=== PATIENT | female | born 1955 | race Caucasian/White ===

== ENCOUNTER → 2016-04-18 | Outpatient (CLI) | payer OTHER ==
[~2016-04-18] MED LIST: ACET-1138 PO; ASPEC81 PO; CLB200 PO; LOSA1TAB PO; METO1TAB31 PO; ONDA8TAB6 PO; POTA-65 PO; SNK PO; ULT50X PO
== END | disposition home or self-care (01) ==
LOC: C.LABSPEC 17:22
PROVIDERS: ATTEND Nurse Practitioner Adult Health
DX: R35.0 Frequency of micturition (principal); R35.1 Nocturia

== ENCOUNTER → 2017-06-30 | Outpatient (CLI) | payer OTHER ==
[~2017-06-30] MED LIST changes: -ASPEC81 PO; +ASPI-320 PO; +METO-478 PO; -METO1TAB31 PO; -ONDA8TAB6 PO
== END | disposition home or self-care (01) ==
LOC: C.LAB 17:27
PROVIDERS: ATTEND Family Medicine
DX: N39.0 Urinary tract infection, site not specified (principal)

== ENCOUNTER → 2017-07-03 | Outpatient (CLI) | payer OTHER ==
--- NOTE | 2017-07-03 17:00 | DIAGNOSTIC IMAGING REPORT ---
ABD/PELVIS WITHOUT FOR STONE HISTORY: 61 years-old Female X acute left-sided flank pain with hematuria COMPARISON: CT abdomen and pelvis 10/23/2015 TECHNIQUE: Multiple axial CT images of the abdomen and pelvis were obtained without the use of contrast. A dose lowering technique was used consistent with the principals of ZAKI. FINDINGS: Calcified granuloma of the nasal right lower lobe. Lung bases are otherwise generally clear. There is no pneumatosis or pneumoperitoneum identified. Imaged inferior cardiac chambers are unremarkable with trace pericardial effusion. Hepatic steatosis. No intrahepatic biliary ductal dilation identified. Areas of mild fatty sparing are seen adjacent to the roge hepatis. Calcific granulomas are noted throughout the spleen. The pancreas, gallbladder and adrenal glands are within normal limits. Kidneys, and ureters are unremarkable without calculi or obstructive uropathy identified. Previously noted indeterminate 8 mm lesion of the left kidney, possibly reflecting a renal cyst is not well seen on this noncontrast study. The bladder is nondistended. Evaluation of the pelvic structures is limited secondary to streak artifact from left hip arthroplasty which appears to be in satisfactory alignment. Uterus and adnexa demonstrate no focal abnormality. Mild atherosclerosis of the aorta without aneurysm. No bulky adenopathy. Retroaortic left renal vein. No bowel obstruction or focal bowel wall thickening. Postoperative changes of the distal sigmoid colon. Moderate stool volume throughout the colon. A few noninflamed colonic diverticula are also noted. The visualized appendix appears normal. Soft tissues are unremarkable. The bones appear to be intact. Severe multilevel facet arthrosis of the lower lumbar spine. Mild levoscoliosis of the lumbar spine. Grade 1 anterolisthesis L4 on L5, likely secondary to long-standing severe facet arthrosis. Moderate posterior disc osteophyte complex at L1-L2 causes at least mild central canal narrowing. IMPRESSION: 1. No acute intra-abdominal or intrapelvic abnormality identified, specifically no renal calculi or obstructive uropathy. 2. Moderate stool volume throughout the colon suggest constipation. 3. Hepatic steatosis. 4. Prior granulomatous disease. 5. Trace pericardial effusion. 6. Additional findings as above. The above report was generated using voice recognition software. It may contain grammatical, syntax or spelling errors. Electronically signed by: Barrington Zhang M.D. 07/03/2017 4:59 PM Dictated Date/Time: 07/03/2017 4:52 PM
== END | disposition home or self-care (01) ==
LOC: C.CTS 16:19
PROVIDERS: ATTEND Family Medicine
DX: K76.0 Fatty (change of) liver, not elsewhere classified (principal)

== ENCOUNTER → 2017-07-18 | Outpatient (CLI) | payer OTHER ==
[2017-07-18 09:41] LABS: BASO % 0.5 %; BASO ABS # 0.04 K/uL (0-0.2); EOS % 2.3 %; EOS ABS # 0.19 K/uL (0-0.5); HEMATOCRIT 42.4 % (37-47); IG# 0.02 K/uL (0.00-0.02); LYMPH % 42.2 %; LYMPH ABS # 3.44 K/uL (1.2-3.4); MEAN CELL VOLUME 91.2 fL (80-100); MEAN CORPUSCULAR HEMOGLOBIN 30.1 pg (25-34); MEAN PLATELET VOLUME 10.5 fL (7.4-10.4); MONO ABS # 0.65 K/uL (0.11-0.59); NEUT % 46.8 %; NEUT ABS # 3.82 K/uL (1.4-6.5); PLATELET COUNT 333 K/uL (130-400); RED CELL DISTRIBUTION WIDTH CV 13.9 % (11.5-14.5); RED CELL DISTRIBUTION WIDTH SD 46.4 fL (36.4-46.3); WHITE BLOOD COUNT 8.16 K/uL (4.8-10.8)
[2017-07-18 10:03] LABS: CARCINOEMBRYONIC ANTIGEN 0.7 ng/ml (0-2.5)
[2017-07-18 10:09] LABS: HEMOGLOBIN A1C 5.7 % (4.5-5.6)
[2017-07-18 10:10] LABS: ALBUMIN 3.7 gm/dl (3.4-5.0); ALKALINE PHOSPHATASE 107 U/L (45-117); ALT/SGPT 34 U/L (12-78); AST/SGOT 23 U/L (15-37); BLOOD UREA NITROGEN 21 mg/dl (7-18); CALCIUM 9.1 mg/dl (8.5-10.1); CARBON DIOXIDE 25 mmol/L (21-32); CHOLESTEROL 197 mg/dl (0-200); CREATININE 0.85 mg/dl (0.60-1.20); GLUCOSE 92 mg/dl (70-99); POTASSIUM 4.3 mmol/L (3.5-5.1); SODIUM 139 mmol/L (136-145); URIC ACID 4.5 mg/dl (2.6-7.2)
[2017-07-18 10:21] LABS: LDL CHOLESTEROL CALCULATED 129 mg/dl; TOTAL PROTEIN 8.1 gm/dl (6.4-8.2); TRANSFERRIN 244 mg/dl (200-360)
== END | disposition home or self-care (01) ==
LOC: C.LAB 07:10
PROVIDERS: ATTEND Family Medicine
DX: N39.0 Urinary tract infection, site not specified (principal); R73.09 Other abnormal glucose; E55.9 Vitamin D deficiency, unspecified; D51.9 Vitamin B12 deficiency anemia, unspecified; E78.9 Disorder of lipoprotein metabolism, unspecified; R53.83 Other fatigue; C18.9 Malignant neoplasm of colon, unspecified

== ENCOUNTER → 2017-07-20 | Outpatient (CLI) | payer OTHER ==
[~2017-07-20] MED LIST changes: +OPTIRAY 320 IV PRN
--- NOTE | 2017-07-20 09:40 | DIAGNOSTIC IMAGING REPORT ---
ABDOMEN AND PELVIS CT WITH IV AND ORAL CONTRAST CT DOSE: 692.41 mGycm HISTORY: Acute left lower quadrant abdominal pain DIVERTICULITIS TECHNIQUE: Multiaxial CT images of the abdomen and pelvis were performed following the use of intravenous and oral contrast. A dose lowering technique was utilized adhering to the principles of ALARA. COMPARISON STUDY: CT abdomen and pelvis 07/03/2017 FINDINGS: 3 mm solid nodule of the lateral basal segment left lower lobe is noted on image 40 series 3. Mild dependent subsegmental bibasilar atelectasis. Linear calcification of the basal right lower lobe, 7 mm. No pneumatosis or pneumoperitoneum. Trace pericardial effusion. Imaged inferior cardiac chambers are unremarkable. Hepatic steatosis. No focal hepatic mass lesions or intrahepatic biliary ductal dilation. Spleen, pancreas, gallbladder and adrenal glands are within normal limits. Low attenuating lesions of the left kidney measuring up to 7 mm suggest renal cysts. There are suggested renal sinus cysts of the left as well. No renal calculi or obstructive uropathy. Urinary bladder is decompressed. Pelvic structures are not well-seen secondary to streak artifact from left hip arthroplasty. Uterus and adnexa are unremarkable. Mild atherosclerosis of the aorta without aneurysm. No bulky adenopathy. Retroaortic left renal vein. No bowel obstruction. Moderate stool volume of the colon suggest constipation. Postsurgical changes of the distal sigmoid colon and rectum. No significant colonic diverticular disease, colonic wall thickening or inflammatory changes. Normal appendix. Soft tissues are unremarkable. Bones appear intact. Multilevel facet arthrosis of the lower lumbar spine. IMPRESSION: 1. No acute intra-abdominal or intrapelvic abnormality identified. 2. No bowel obstruction or focal bowel wall thickening. 3. Suggested constipation. 4. Hepatic steatosis. 5. Additional findings as above. Electronically signed by: Barrington Zhang M.D. 07/20/2017 9:39 AM Dictated Date/Time: 07/20/2017 9:33 AM
== END | disposition home or self-care (01) ==
LOC: C.CTS 08:50
PROVIDERS: ATTEND Family Medicine
DX: R10.32 Left lower quadrant pain (principal); K57.92 Diverticulitis of intestine, part unspecified, without perforation or abscess without bleeding; K76.0 Fatty (change of) liver, not elsewhere classified

== ENCOUNTER 2022-05-24 14:56 | Inpatient (IN) ==
[2022-05-24] MEDS ORDERED: ACETAMINOPHEN 325 MG TAB PO PRN (15:04)
--- NOTE | 2022-05-24 15:11 | History & Physical Report ---
Date of Service May 24, 2022 Assessment & Plan (1) Fever: Plan: Fever of unknown origin Discussed with infectious disease. Will expand antibiotics from cefepime to include doxycycline twice daily p.o., prophylactic Vanco 125 twice daily given past history of C. difficile with recurrence, and vancomycin IV while pending additional work-up Lyme serology, blood cultures, urine cultures, CTchest/abdomen, Fungitell, bio fire, MRSA nares pending No clear source on physical examination Hemoglobin 6.4. Transfusing as below White blood cell 2.81, neutrophils 1.05 Platelet count 14 without active bleeding ESR 42 CRP baseline pending Admitting creatinine 0.91, baseline creatinine less than 1 Procalcitonin pending No transaminitis on admission UA day of admit with trace of blood, otherwise negative COVID pending -Prior CTchest: Groundglass residual densities of left lung, no lymphadenopathy, prior granulomatous disease, hepatic steatosis -Patient was pending a outpatient CTA/P which was not yet completed. Ordered with iv contrast, oral contrast deferred -Ultrasoundliver 04/15/2022: Gallbladder sludge without cholecystitis, no ductal dilation, hepatic steatosis, no focal mass or marginal nodularity appreciated MDS Hemoglobin less than 7 on admission, 2 units crossmatched, 1 unit pending transfusion. H&H after first unit, transfuse second unit if remaining less than 7.5 Requires irradiated blood products - Transfusion threshold for platelets less than 20,000 with bleeding. 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 difficile while with biotics We will treat prophylactically with vancomycin p.o. 125 twice daily Posttreatment myelodysplastic syndrome Noted 05/2021 Bone marrow biopsy with multilineage dysplasia Following with [facility] [place] for consideration of allogenic transplant from son versus immunity transplant. Transfusion threshold 7.0 Transfusion reaction 01/2022 platelet did have a platelet transfusion reaction with single leg hives and no airway involvement Pretreat transfusions with Benadryl, Tylenol, hydrocortisone DVT prophylaxis: Pharmacal prophylaxis contraindicated due to thrombocytopenia and anemia Disposition: Medical telemetry CODE STATUS: DNR/DNI Diet: Regular (2) Lymphoma: (3) MDS (myelodysplastic syndrome): (4) Pancytopenia: History of Present Illness Primary Care Provider: Marlene Barnett MD Mariana is a 66-year-old female with a past medical history of B-cell AL L, hypertension, atrial fibrillation, recurrent UTI Mariana is a 69-year-old female with a history of B-cell leukemia, A-fib, hypertension, pancytopenia who presents as a direct admit from the cancer care center for persistent fever with pancytopenia despite ciprofloxacin treatment, and anemia less than 7 in the setting of 1 year of myelodysplastic syndrome. Currently seen at the bedside with her present. She reports that since 5 days ago she has had continued night sweats and fevers of 101-102 F which mostly occur at night and which are intermittent and more rare throughout the day and which respond to Tylenol/ibuprofen. She has not had any cough or sputum production. No abdominal pain, has been a little constipated with firm bowel movements. [place], has not noted any tick bites or rashes. She did have bronchitis back in February and has been treated with azithromycin followed by cefpodoxime, and more recently ciprofloxacin which she has been taking twice daily for last 5 days and took this morning. Her fevers and chills have not improved with ciprofloxacin. She reports she has taken a fourth antibiotic between February and now, but does not recall the name of it. Cefdinir is noted on her chart, but notes this was switched to another similar medicine which she does not recall, was switched as pharmacy was on backorder for cefdinir. She has had some bloating and constipation, but again no abdominal pain or diarrhea. She has a history of B-cell lymphoma and 1 year of myelodysplastic syndrome with recurrent red blood cell transfusions. Last transfusion was 3 weeks ago. Gener ally fatigued, but no focal aches. Medical History: Reviewed Medications: Reviewed Surgical History: Reviewed Family history: Reviewed Allergies: Reviewed Social History: No tobacco/etoh/rec drug Code Status: DNR?DNI Allergies Allergy/AdvReac Type Severity Reaction Status Date / Time hydromorphone [From Dilaudid] Allergy Severe Hallucinati Verified 05/03/22 08:02 ng latex Allergy Severe SYSTEMIC Verified 05/03/22 08:02 ALLERGIC RESPONSE Penicillins Allergy Severe HIVES,DIFF. Verified 05/03/22 08:02 BREATHING codeine AdvReac Intermediate INDUCES Verified 05/03/22 08:02 MIGRAINE HEADACHES verapamil AdvReac Mild very sleepy Verified 05/03/22 08:02 morphine AdvReac Migraine Verified 05/03/22 08:02 Home Medications Medication Instructions Recorded Confirmed Type acetaminophen 500 mg tablet 1,000 mg PO DIRECTED PRN Pain 10/26/18 05/03/22 History (Tylenol Extra Strength) cholecalciferol (vitamin D3) 1,250 50,000 unit PO 2XWK 09/16/20 05/03/22 History mcg (50,000 unit) capsule Lactobacillus 1 cap PO DAILY 10/15/20 05/03/22 History acidophilus-Bifidobac.animalis 2 billion cell capsule folic acid 1 mg tablet 1 mg PO DAILY 06/23/21 05/03/22 History prednisone 20 mg tablet See Rx Instructions PO .COMPLEX 03/22/22 05/03/22 Rx #30 tabs benzonatate 100 mg capsule 100 mg PO TID PRN Cough 03/28/22 05/03/22 History Past Med/Surg History Medical History (Updated 05/24/22 @ 16:56 by Micah Hurst MD) A-fib remote hx of idiopathic pericarditis and transient a. fib (2016)- advised by cardiology 10/2016 to f/u PRN Anemia hgb stable in the 10-11 range Anxiety prior to procedures Bronchitis Delayed recovery from anesthesia GERD (gastroesophageal reflux disease) r/t chemo History of recent steroid use per RN phone interview, prednisone for first 5 days of 28 days chemo cycle/did not indicate last use History of thrombocytopenia fluctuating platelets since leukemia diagnosis/chemo treatments Hypertension Leukemia dx 10/2018 Migraine Osteoarthritis Peripheral neuropathy R/L hands, feet Port-A-Cath in place (04/25/19) Insertion of Mediport Left Subclavian Dr. Hinton 04/25/19 Sleep apnea "no official diagnosis" per RN phone interview/no further details- ?DEMOND Vitamin D deficiency Surgical History H/O section X2 History of bone marrow biopsy History of colon resection History of colonoscopy History of total hip arthroplasty LEFT S/P breast biopsy bilat S/P PICC central line placement DOUBLE LUMEN > OCT 2018> RIGHT ARM Family History Mother Cancer Breast cancer Brother Cancer Heart disease Social History Smoking Status: Never smoker Second Hand Exposure: No; Hx Alcohol Use: No Hx Substance Use: No Preferred Language: Ecuadorean Communication Ability: Effective Outside Property Agent Required: No Beliefs That Will Affect Care: None marital status: Current Living Situation: Spouse and Family Feels Safe at Home: Yes Assistive Devices: Walker and Wheelchair Review of Systems Review of Systems: All systems reviewed & are unremarkable except as noted in HPI & below Physical Exam Physical Exam: General: A&Ox3. NAD. Cooperative. HEENT: Atraumatic, normocephalic. Vision and hearing grossly intact. No scleral injection. Thorax: Left port in place, without tenderness or overlying erythema/discharge Pulm: CTAB A&P. -wheezes, -rales, -rhonchi. Symmetrical chest rise. No increased work of breathing. No respiratory distress. Cardiac: Mild intermittent tachycardia, regular., -mrg. Radial pulses intact and symmetrical. Abdominal: Nontender, nondistended, soft. BS present. Extremities: Warm, dry. No edema. No lesions. Sensation soft touch intact in hands and feet without deficit, distal extremity strength is intact and symmetrical PG Care Time/CCT Total # of Minutes Spent Total Time Spent with Patient: Total time spent is greater than 50% in coordination of care (as documented) at patient's floor/unit and/or counseling patient: Coding Level of Care Code 64824 INT INP/OBS CARE 3/75MIN Diagnoses Fever R50.9 Lymphoma C85.90 MDS (myelodysplastic syndrome) D46.9 Pancytopenia D61.818
[2022-05-24] MEDS ORDERED: SODIUM CHLORIDE 0.9% 250 ML IV PRN ×2 (15:14→23:57)
[2022-05-24] MEDS ORDERED: diphenhydrAMINE Capsule 25 MG CAP PO ONE (15:14)
[2022-05-24] MEDS ORDERED: ACETAMINOPHEN 325 MG TAB PO ONE (15:16)
[2022-05-24] MEDS ORDERED: Patient's HEIGHT &/or WEIGHT Needed SCH (15:30)
[2022-05-24] MEDS ORDERED: HYDROCORTISONE SOD 50 MG in SYRINGE 0 ML IV ONE (15:30)
[2022-05-24] MEDS ORDERED: VANCOMYCIN CONSULT ACTIVE PRN (16:42)
[2022-05-24] MEDS ORDERED: VANCOMYCIN HCL IV SCH (16:45)
[2022-05-24] MEDS ORDERED: SODIUM CHLORIDE 0.9% IV SCH (16:45)
[2022-05-24] MEDS ORDERED: VANCOMYCIN HCL 1,500 MG in SODIUM CHLORIDE 0.9% 500 ML IV ONE (17:15)
[2022-05-24 17:38] LABS: Lyme Ab IgG w/WB Rflx Negative (Negative); Lyme Ab IgM w/WB Rflx Negative (Negative)
--- NOTE | 2022-05-24 18:06 | XRay Report ---
SINGLE VIEW CHEST CLINICAL HISTORY: Fever FINDINGS: An AP, portable, upright chest radiograph is compared to study dated 03/23/2022 and correlate d with chest CT dated 05/02/2022. A left subclavian central venous infusion port is unchanged in posit ion. The heart is enlarged. The pulmonary vasculature is noncongested. Calcified mediastinal and righ t hilar lymph nodes are similar to previous. The lungs and pleural spaces are clear. No pneumothorax is seen. The skeletal structures are osteopenic. The bony thorax is grossly intact. IMPRESSION: Cardiomegaly with no active disease in the chest. ACT 112: Negative or not required by law. Electronically signed by: Irvin Martinez M.D. 05/24/2022 6:04 PM
[2022-05-24] MEDS: DOXYCYCLINE HYCLATE 100 MG CAP PO SCH (18:19)
--- NOTE | 2022-05-24 18:35 | Pharmacy Report ---
Pharmacy PK ABX Note - Date of Service May 24, 2022 - Assessment and Plan Assessment 66 year old F with h/o b-cell lymphoma and MDS [facility] with fever of unknown origin. Patient is currently on day 5 of ciprofloxacin. Per H&P, Infectious Disease recommended empiric cefepime, doxy, and vancomycin IV as well as vanco PO for CDI prophylaxis. Lyme serology, blood cultures, urine cultures, Fungitell, Resp biofire, MRSA nares pending. Plan Vancomycin * Loading dose: 1500 mg IV x 1 * Maintenance dose: mg IV every hours * Regimen is predicted to achieve target AUC/KATHARINE of 400-600 mg/L.hr * [Trough] [Random] level ordered for: []/[]/[] Pharmacy will continue to follow and will adjust dose/frequency as necessary. Thank you.
[2022-05-24 18:45] LABS: Adenovirus PCR Not Detected (NotDetected); Bordetella parapertussis PCR Not Detected (NotDetected); Bordetella pertussis PCR Not Detected (NotDetected); Chlamydia pneumoniae PCR Not Detected (NotDetected); Coronavirus 229E PCR Not Detected (NotDetected); Coronavirus CoV-2 (COVID19)PCR Not Detected (NotDetected); Coronavirus HKU1 PCR Not Detected (NotDetected); Coronavirus NL63 PCR Not Detected (NotDetected); Coronavirus OC43PCR Not Detected (NotDetected); Human Metapneumovirus PCR Not Detected (NotDetected); Influenza A PCR Not Detected (NotDetected); Influenza B PCR Not Detected (NotDetected); Mycoplasma pneumoniae PCR Not Detected (NotDetected); Parainfluenza Virus 1 PCR Not Detected (NotDetected); Parainfluenza Virus 2 PCR Not Detected (NotDetected); Parainfluenza Virus 3 PCR Not Detected (NotDetected); Parainfluenza Virus 4 PCR Not Detected (NotDetected); Respiratory Syncytial VirusPCR Not Detected (NotDetected); Rhinovirus/Enterovirus PCR Not Detected (NotDetected)
[2022-05-24 21:02] LABS: Hematocrit (blood only) 16.6 % (37.0-47.0); Hemoglobin 5.5 g/dl (12.0-16.0); Platelet Count 15 K/uL (130-400)
[2022-05-24] MEDS: RASPBERRY SYRUP 5 ML UDP PO SCH (21:24)
[2022-05-24] MEDS: VANCOMYCIN HCL 125 MG/2.5ML SOLN PO SCH (21:24)
[2022-05-24] MEDS: CEFEPIME 2,000 MG in SYRINGE 0 ML IV SCH (21:25)
[2022-05-24 22:33] LABS: Appearance Urine Clear (Clear); Bacteria Urine Automated Negative (Negative); Bilirubin Urine Negative (Negative); Blood Urine Trace (Negative); Cast Urine Automated 0 /lpf (0-5); Color Urine Yellow; Glucose Urine UA Negative (Negative); Ketones Urine Negative (Negative); Leukocyte Esterase Urine Negative (Negative); Nitrite Urine Negative (Negative); Protein Urine Negative (Negative); RBC Urine Automated 0-4 /hpf (0-4); Specific Gravity Urine 1.006 (1.000-1.030); Urobilinogen Urine Negative (Negative); WBC Urine Automated 0 /hpf (0-5)
[2022-05-24 23:51] LABS: Hematocrit (blood only) 20.5 % (37.0-47.0); Hemoglobin 6.9 g/dl (12.0-16.0)
[2022-05-25] MEDS ORDERED: ACETAMINOPHEN 325 MG TAB PO STA (00:10)
[2022-05-25] MEDS ORDERED: diphenhydrAMINE Capsule 25 MG CAP PO ONE (00:10)
[2022-05-25] MEDS ORDERED: HYDROCORTISONE SOD 50 MG in SYRINGE 0 ML IV ONE (00:25)
[2022-05-25] MEDS ORDERED: SODIUM CHLORIDE 0.9% 250 ML IV PRN (01:32)
[2022-05-25] MEDS ORDERED: VANCOMYCIN HCL 1,250 MG in SODIUM CHLORIDE 0.9% 250 ML IV SCH (04:00)
[2022-05-25] MEDS: DOXYCYCLINE HYCLATE 100 MG CAP PO SCH ×2 (05:39→16:58)
[2022-05-25] MEDS: CEFEPIME 2,000 MG in SYRINGE 0 ML IV SCH ×3 (05:39→21:06)
[2022-05-25 07:22] LABS: Hematocrit (blood only) 23.6 % (37.0-47.0); Hemoglobin 8.3 g/dl (12.0-16.0); Mean Corpuscular Hemoglobin 30.4 pg (25.0-34.0); Mean Corpuscular Hgb Conc 35.2 g/dL (32.0-36.0); Mean Corpuscular Volume 86.4 fL (80.0-100.0); Platelet Count 14 K/uL (130-400); RDW Coefficient of Variation 13.6 % (11.5-14.5); RDW Standard Deviation 42.4 fL (36.4-46.3); Red Blood Count 2.73 M/uL (4.20-5.40)
[2022-05-25 07:31] LABS: Albumin Globulin Ratio 1.2 (0.9-2); Albumin Level 3.6 gm/dl (3.4-5.0); BUN Creatinine Ratio 23.5 (10-20); Bilirubin,Total 1.1 mg/dl (0.2-1.0); Creatinine Clr Calc Pharmacy 61.1 ml/min; Est GFR (African American) 82.2 ml/min; Est GFR (Non-African American) 70.9 ml/min; Globulin 2.9 gm/dl (2.5-4.0); Total Protein 6.5 gm/dl (6.0-8.3)
[2022-05-25 07:56] LABS: Basophils # (auto) 0.07 K/uL (0-0.2); Basophils % (auto) 1.6 %; Eosinophils # (auto) 0.01 K/uL (0-0.50); Eosinophils % (auto) 0.2 %; Immature Granulocytes # (auto) 0.15 K/uL (0.01-0.20); Immature Granulocytes % (auto) 3.4 %; Lymphocytes # (auto) 0.92 K/uL (1.2-3.4); Lymphocytes % (auto) 20.9 %; Monocytes # (auto) 0.34 K/uL (0.11-0.59); Monocytes % (auto) 7.7 %; Neutrophils # (auto) 2.91 K/uL (1.40-6.50); Neutrophils % (auto) 66.2 %
--- NOTE | 2022-05-25 08:48 | Infectious Disease Consult ---
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 Infectious Diseases consulted in setting of immunodeficiency and fevers. She has a h/o pre B ALL who had induction therapy completed in 01/2019 not completing last 3 cycles because of quality of life issues, continued on POMP maintenance through 09/2019. She is currently being considered for allogenic transplant vs immunity transplant. She has h/o recurrent uppers respiratory symptoms starting 02/2022 treated with Azithromycin then cefpodoxime. 03/25/[address] showed small nodular irregular airspace opacities with GGO halo favoring multifocal PNA. 04/23/22 she was prescribed Cefidinir but couldnt be filled and she received levofloxacin for 7 days. 05/[address] no evidence of sinusitis. Repeat CT chest showed resolved aeration of lungs with only minimal residual GGO of L lung. She was admitted to [facility] on 05/24 with 5 days of fevers to 101-102F occurring at night. She reports that since 5 days ago she has had continued night sweats and fevers responding to Tylenol/ibuprofen. She has not had any cough or sputum production. No abdominal pain, has been a little constipated with firm bowel movements. [place], has not noted any tick bites or rashes. Admission Vitals stable. Initial WBC 2.81 (neutrophils 1.05) Hgb 6.4 platelets 14, chemistry normal. UA clear except for trace blood. RVP negative. MRSA nares are negative. CXR showed cardiomegaly, lungs negative for active disease. 3/ Blood cultures are in lab. Review of prior cultures 3/2 Ucx grew lactobacillus (10,000 cfu/mL) 3/2 Blood cultures NG Patient placed on Cefepime, Vancomycin, Doxycycline and Vanco po ppx. Line: L subclavian port Hardware: L ALEXIS Discussion: Patient with 2 weeks of fevers without clear source, in setting of pancytopenia. She is not neutropenic today. CXR negative and UA is clear. She has a L chest port. Blood cultures are in lab. Source not clear at this time but do not suspect Urinary source. She did have respiratory infections and 2DE, CT C/A/P would help furhter evaluate source. Lyme testing is negative but Lyme is a concern of [facility]. I would plan to c/w doxy and cefepime for now. GIven mrsa nares negative it is safe to d/c vancomycin at this time. (2) Lymphoma: (3) Acute URI of multiple sites: Plan -Await CT C/A/P -2DE given fevers -C/W Cefepime and doxycycline -Recommend holding on any antipyretics unless she has temp off 100.3 or greater -f/u on Blood cultures -C/w Vanco 125 po bid ppx for Cdiff Thank you, ID will follow Karyna Ramirez MD Infectious Diseases [facility] Consultation Information Consultation was provided via telemedicine using two-way real-time interactive telecommunication between the patient and the telemedicine provider. For the duration of the visit, the provider was performing the assessment from a different facility than the patient. This includesuse of bluetooth stethoscope forauscultationperformed by the telepresenter that the telemedicine provider can hear if described in the physical exam. Circulation Crew Leader contact information: Please call [facility] [phone]. 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 Infectious Diseases consulted in setting of immunodeficiency and fevers. She has a h/o pre B ALL who had induction therapy completed in 01/2019 not completing last 3 cycles because of quality of life issues, continued on POMP maintenance through 09/2019. She is currently being considered for allogenic transplant vs immunity transplant. She has h/o recurrent uppers respiratory symptoms starting 02/2022 treated with Azithromycin then cefpodoxime. 03/25/[address] showed small nodular irregular airspace opacities with GGO halo favoring multifocal PNA. 04/23/22 she was prescribed Cefidinir but couldnt be filled and she received levofloxacin for 7 days. 05/[address] no evidence of sinusitis. Repeat CT chest showed resolved aeration of lungs with only minimal residual GGO of L lung. She was admitted to [facility] on 05/24 with 5 days of fevers to 101-102F occurring at night. She reports that since 5 days ago she has had continued night sweats and fevers responding to Tylenol/ibuprofen. She has not had any cough or sputum production. No abdominal pain, has been a little constipated with firm bowel movements. She [place] area with pets, has not noted any tick bites or rashes. Admission Vitals stable. Initial WBC 2.81 (neutrophils 1.05) Hgb 6.4 platelets 14, chemistry normal. UA clear except for trace blood. RVP negative. MRSA nares are negative. CXR showed cardiomegaly, lungs negative for active disease. 05/24 Blood cultures are in lab. Review of prior cultures / Ucx grew lactobacillus (10,000 cfu/mL) 3/ Blood cultures NG Patient placed on Cefepime, Vancomycin, Doxycycline and Vanco po ppx. Line: L subclavian port Hardware: L ALEXIS Today, patient is feeling better. She states she's had fevers for 2 weeks approximately. No respiratory symptoms, no cardiac symptoms, Some discomfort after eating. No skin issues. She has 2 dogs at home and is concerned for tick related disease but no ticks noted on herself or animals. No recent travel. She has lived in [facility]. 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 Allergies Allergy/AdvReac Type Severity Reaction Status Date / Time hydromorphone [From Dilaudid] Allergy Severe Hallucinati Verified 05/03/22 08:02 ng latex Allergy Severe SYSTEMIC Verified 05/03/22 08:02 ALLERGIC RESPONSE Penicillins Allergy Severe HIVES,DIFF. Verified 05/03/22 08:02 BREATHING codeine AdvReac Intermediate INDUCES Verified 05/03/22 08:02 MIGRAINE HEADACHES verapamil AdvReac Mild very sleepy Verified 05/03/22 08:02 morphine AdvReac Migraine Verified 05/03/22 08:02 Home Medications Medication Instructions Recorded Confirmed Type acetaminophen 500 mg tablet 1,000 mg PO DIRECTED PRN Pain 10/26/18 05/03/22 History (Tylenol Extra Strength) cholecalciferol (vitamin D3) 1,250 50,000 unit PO 2XWK 09/16/20 05/03/22 History mcg (50,000 unit) capsule Lactobacillus 1 cap PO DAILY 10/15/20 05/03/22 History acidophilus-Bifidobac.animalis 2 billion cell capsule folic acid 1 mg tablet 1 mg PO DAILY 06/23/21 05/03/22 History prednisone 20 mg tablet See Rx Instructions PO .COMPLEX 03/22/22 05/03/22 Rx #30 tabs benzonatate 100 mg capsule 100 mg PO TID PRN Cough 03/28/22 05/03/22 History Patient History Medical History A-fib remote hx of idiopathic pericarditis and transient a. fib (2015)- advised by cardiology 10/2016 to f/u PRN Anemia hgb stable in the 10-11 range Anxiety prior to procedures Bronchitis Delayed recovery from anesthesia GERD (gastroesophageal reflux disease) r/t chemo History of recent steroid use per RN phone interview, prednisone for first 5 days of 28 days chemo cycle/did not indicate last use History of thrombocytopenia fluctuating platelets since leukemia diagnosis/chemo treatments Hypertension Leukemia dx 10/2018 Migraine Osteoarthritis Peripheral neuropathy R/L hands, feet Port-A-Cath in place (04/25/19) Insertion of Mediport Left Subclavian Dr. Hinton 04/25/19 Sleep apnea "no official diagnosis" per RN phone interview/no further details- ?DEMOND Vitamin D deficiency Surgical History H/O section X2 History of bone marrow biopsy History of colon resection History of colonoscopy History of total hip arthroplasty LEFT S/P breast biopsy bilat S/P PICC central line placement DOUBLE LUMEN > OCT 2018> RIGHT ARM Family History Mother Cancer Breast cancer Brother Cancer Heart disease Social History Smoking Status: Never smoker Second Hand Exposure: No; Hx Alcohol Use: No Hx Substance Use: No Preferred Language: German Communication Ability: Effective Product Demonstrator Required: No Beliefs That Will Affect Care: None marital status: Current Living Situation: Spouse and Family Feels Safe at Home: Yes Assistive Devices: Walker and Wheelchair Review of System as per HPI Physical Exam Physical Exam: NAD OP clear no thrush No skin lesions No c/c/e No abdominal TTP, HSM negative murphys sign Results & Data ([facility]) Vital Signs (Past 12 Hours) Vital Signs Temp Pulse Pulse Resp BP BP Pulse Ox 05/25/22 07:56 36.6 C 77 18 115/58 L 96 05/25/22 07:13 68 05/25/22 06:01 36.6 C 77 18 122/72 96 05/25/22 05:35 36.5 C 73 18 122/71 98 05/25/22 04:35 36.6 C 75 18 110/59 L 96 05/25/22 03:35 36.6 C 86 18 138/67 97 05/25/22 03:05 36.6 C 72 18 123/67 96 05/25/22 02:50 36.5 C 74 18 122/66 98 05/25/22 02:28 36.7 C 77 18 130/72 99 05/25/22 01:02 106 H 05/24/22 23:15 36.8 C 80 18 102/49 L 95 05/24/22 22:15 36.9 C 90 18 127/67 96 05/24/22 20:58 36.8 C 92 H 18 113/52 L 95 O2 Del Method 05/25/22 07:56 Room Air 05/25/22 07:13 05/25/22 06:01 05/25/22 05:35 05/25/22 04:35 05/25/22 03:35 05/25/22 03:05 05/25/22 02:50 05/25/22 02:28 05/25/22 01:02 05/24/22 23:15 Room Air 05/24/22 22:15 05/24/22 20:58 Laboratory Results Laboratory Results - last 48 hr 05/24/22 05/24/22 05/24/22 13:17 13:17 16:32 WBC RBC Hgb 5.5 L* Hct 16.6 L* MCV MCH MCHC RDW Std Deviation RDW Coeff of Garcia Plt Count 15 L* Immature Gran % (Auto) Neut % (Auto) Lymph % (Auto) [place] % (Auto) Eos % (Auto) Baso % (Auto) Neut # (Auto) Lymph # (Auto) [place] # (Auto) Eos # (Auto) Baso # (Auto) Immature Gran # (Auto) Sodium Potassium Chloride Carbon Dioxide Anion Gap BUN Creatinine Est Cr Clr Drug Dosing Est GFR ( Amer) Est GFR (Non-Af Amer) BUN/Creatinine Ratio Glucose Calcium Total Bilirubin AST ALT Alkaline Phosphatase C-Reactive Protein 5.22 H Total Protein Albumin Globulin Albumin/Globulin Ratio Urine Color Urine Appearance Urine pH Ur Specific [place] Urine Protein Urine Glucose (UA) Urine Ketones Urine Blood Urine Nitrite Urine Bilirubin Urine Urobilinogen Ur Leukocyte Esterase Urine WBC (Auto) Urine RBC (Auto) U Hyaline Cast (Auto) U Epithel Cells (Auto) Urine Bacteria (Auto) Nasal Screen MRSA (PCR) Adenovirus (PCR) Anaplasma Smear See Comment B. pertussis DNA (PCR) B.parapertussis DNA PCR Lyme Disease IgG Ab Lyme Disease IgM Ab C. pneumoniae DNA (PCR) Coronavirus OC43 (PCR) Coronavirus HKU1 (PCR) Coronavirus 229E (PCR) SARS-CoV-2 (PCR) Coronavirus NL63 (PCR) Human Metapneumovir PCR Influenza Type A (PCR) Influenza Type B (PCR) M. pneumoniae (PCR) Parainfluenza 1 (PCR) Parainfluenza 2 (PCR) Parainfluenza 3 (PCR) Parainfluenza 4 (PCR) RSV (PCR) Entero/Rhino (PCR) Blood Type O Positive Antibody Screen NEGATIVE Crossmatch See Detail 05/24/22 05/24/22 05/24/22 16:32 22:00 23:18 WBC RBC Hgb 6.9 L* Hct 20.5 L* MCV MCH MCHC RDW Std Deviation RDW Coeff of Garcia Plt Count Immature Gran % (Auto) Neut % (Auto) Lymph % (Auto) [place] % (Auto) Eos % (Auto) Baso % (Auto) Neut # (Auto) Lymph # (Auto) [place] # (Auto) Eos # (Auto) Baso # (Auto) Immature Gran # (Auto) Sodium Potassium Chloride Carbon Dioxide Anion Gap BUN Creatinine Est Cr Clr Drug Dosing Est GFR ( Amer) Est GFR (Non-Af Amer) BUN/Creatinine Ratio Glucose Calcium Total Bilirubin AST ALT Alkaline Phosphatase C-Reactive Protein Total Protein Albumin Globulin Albumin/Globulin Ratio Urine Color Yellow Urine Appearance Clear Urine pH 6.0 Ur Specific [place] 1.006 Urine Protein Negative Urine Glucose (UA) Negative Urine Ketones Negative Urine Blood Trace H Urine Nitrite Negative Urine Bilirubin Negative Urine Urobilinogen Negative Ur Leukocyte Esterase Negative Urine WBC (Auto) 0 Urine RBC (Auto) 0-4 U Hyaline Cast (Auto) 0 U Epithel Cells (Auto) 5-10 H Urine Bacteria (Auto) Negative Nasal Screen MRSA (PCR) Adenovirus (PCR) Anaplasma Smear B. pertussis DNA (PCR) B.parapertussis DNA PCR Lyme Disease IgG Ab Negative Lyme Disease IgM Ab Negative C. pneumoniae DNA (PCR) Coronavirus OC43 (PCR) Coronavirus HKU1 (PCR) Coronavirus 229E (PCR) SARS-CoV-2 (PCR) Coronavirus NL63 (PCR) Human Metapneumovir PCR Influenza Type A (PCR) Influenza Type B (PCR) M. pneumoniae (PCR) Parainfluenza 1 (PCR) Parainfluenza 2 (PCR) Parainfluenza 3 (PCR) Parainfluenza 4 (PCR) RSV (PCR) Entero/Rhino (PCR) Blood Type Antibody Screen Crossmatch 05/24/22 05/24/22 05/25/22 Unknown Unknown 06:51 WBC 4.40 L RBC 2.73 L Hgb 8.3 L Hct 23.6 L MCV 86.4 MCH 30.4 MCHC 35.2 RDW Std Deviation 42.4 RDW Coeff of Garcia 13.6 Plt Count 14 L* Immature Gran % (Auto) 3.4 Neut % (Auto) 66.2 Lymph % (Auto) 20.9 [place] % (Auto) 7.7 Eos % (Auto) 0.2 Baso % (Auto) 1.6 Neut # (Auto) 2.91 Lymph # (Auto) 0.92 L [place] # (Auto) 0.34 Eos # (Auto) 0.01 Baso # (Auto) 0.07 Immature Gran # (Auto) 0.15 Sodium Potassium Chloride Carbon Dioxide Anion Gap BUN Creatinine Est Cr Clr Drug Dosing Est GFR ( Amer) Est GFR (Non-Af Amer) BUN/Creatinine Ratio Glucose Calcium Total Bilirubin AST ALT Alkaline Phosphatase C-Reactive Protein Total Protein Albumin Globulin Albumin/Globulin Ratio Urine Color Urine Appearance Urine pH Ur Specific [place] Urine Protein Urine Glucose (UA) Urine Ketones Urine Blood Urine Nitrite Urine Bilirubin Urine Urobilinogen Ur Leukocyte Esterase Urine WBC (Auto) Urine RBC (Auto) U Hyaline Cast (Auto) U Epithel Cells (Auto) Urine Bacteria (Auto) Nasal Screen MRSA (PCR) Negative Adenovirus (PCR) Not Detected Anaplasma Smear B. pertussis DNA (PCR) Not Detected B.parapertussis DNA PCR Not Detected Lyme Disease IgG Ab Lyme Disease IgM Ab C. pneumoniae DNA (PCR) Not Detected Coronavirus OC43 (PCR) Not Detected Coronavirus HKU1 (PCR) Not Detected Coronavirus 229E (PCR) Not Detected SARS-CoV-2 (PCR) Not Detected Coronavirus NL63 (PCR) Not Detected Human Metapneumovir PCR Not Detected Influenza Type A (PCR) Not Detected Influenza Type B (PCR) Not Detected M. pneumoniae (PCR) Not Detected Parainfluenza 1 (PCR) Not Detected Parainfluenza 2 (PCR) Not Detected Parainfluenza 3 (PCR) Not Detected Parainfluenza 4 (PCR) Not Detected RSV (PCR) Not Detected Entero/Rhino (PCR) Not Detected Blood Type Antibody Screen Crossmatch 05/25/22 06:51 WBC RBC Hgb Hct MCV MCH MCHC RDW Std Deviation RDW Coeff of Garcia Plt Count Immature Gran % (Auto) Neut % (Auto) Lymph % (Auto) [place] % (Auto) Eos % (Auto) Baso % (Auto) Neut # (Auto) Lymph # (Auto) [place] # (Auto) Eos # (Auto) Baso # (Auto) Immature Gran # (Auto) Sodium 139 Potassium 4.0 Chloride 109 H Carbon Dioxide 26 Anion Gap 4 BUN 20 Creatinine 0.85 Est Cr Clr Drug Dosing 61.1 Est GFR ( Amer) 82.2 Est GFR (Non-Af Amer) 70.9 BUN/Creatinine Ratio 23.5 H Glucose 118 H Calcium 9.0 Total Bilirubin 1.1 H D AST 13 ALT 16 Alkaline Phosphatase 54 C-Reactive Protein Total Protein 6.5 Albumin 3.6 Globulin 2.9 Albumin/Globulin Ratio 1.2 Urine Color Urine Appearance Urine pH Ur Specific [place] Urine Protein Urine Glucose (UA) Urine Ketones Urine Blood Urine Nitrite Urine Bilirubin Urine Urobilinogen Ur Leukocyte Esterase Urine WBC (Auto) Urine RBC (Auto) U Hyaline Cast (Auto) U Epithel Cells (Auto) Urine Bacteria (Auto) Nasal Screen MRSA (PCR) Adenovirus (PCR) Anaplasma Smear B. pertussis DNA (PCR) B.parapertussis DNA PCR Lyme Disease IgG Ab Lyme Disease IgM Ab C. pneumoniae DNA (PCR) Coronavirus OC43 (PCR) Coronavirus HKU1 (PCR) Coronavirus 229E (PCR) SARS-CoV-2 (PCR) Coronavirus NL63 (PCR) Human Metapneumovir PCR Influenza Type A (PCR) Influenza Type B (PCR) M. pneumoniae (PCR) Parainfluenza 1 (PCR) Parainfluenza 2 (PCR) Parainfluenza 3 (PCR) Parainfluenza 4 (PCR) RSV (PCR) Entero/Rhino (PCR) Blood Type Antibody Screen Crossmatch Diagnostic Findings Chest X-Ray 05/24/22 14:59 SINGLE VIEW CHEST CLINICAL HISTORY: Fever FINDINGS: An AP, portable, upright chest radiograph is compared to study dated 03/23/2022 and correlated with chest CT dated 05/02/2022. A left subclavian central venous infusion port is unchanged in position. The heart is enlarged. The pulmonary vasculature is noncongested. Calcified mediastinal and right hilar lymph nodes are similar to previous. The lungs and pleural spaces are clear. No pneumothorax is seen. The skeletal structures are osteopenic. The bony thorax is grossly intact. IMPRESSION: Cardiomegaly with no active disease in the chest. ACT 112: Negative or not required by law. Electronically signed by: Irvin Martinez M.D. 05/24/2022 6:04 PM Medications Administered Current Inpatient Medications Acetaminophen (Acetaminophen 325 Mg Tab) 650 mg PO Q4H PRN PRN Reason: Pain or Fever Stop: 06/23/22 15:03 Doxycycline Hyclate (Doxycycline Hyclate 100 Mg Cap) 100 mg PO Q12H EDWIN Stop: 05/26/22 17:59 Last Admin: 05/25/22 05:39 Dose: 100 mg Cefepime HCl 2,000 mg/ Syringe 20 mls @ 5 mls/min IV Q8H EDWIN; Protocol Stop: 05/26/22 17:59 Last Admin: 05/25/22 05:39 Dose: 5 mls/min Sodium Chloride (Nss) 250 mls @ 15 mls/hr IV .[id number] PRN PRN Reason: For Transfusion Duration Stop: 05/25/22 11:32 Raspberry (Raspberry Syrup 5 Ml Udp) 5 ml PO BID [facility] Stop: 06/23/22 20:59 Last Admin: 05/25/22 09:31 Dose: 5 ml Vancomycin HCl (Vancomycin Hcl 125 Mg/2.5ml Soln) 125 mg PO BID [facility] Stop: 06/23/22 20:59 Last Admin: 05/25/22 09:30 Dose: 125 mg
--- NOTE | 2022-05-25 08:53 | Hospitalist Progress Note ---
Date of Service May 25, 2022 Assessment & Plan (1) Fever: Plan: Fever of unknown origin Discussed with infectious disease. --> Expanded antibiotics from cefepime to include: * Doxy IV BID * Vancomycin IV * Vanco PO for hx cdiff w/ recurrence Lyme negative, Anaplasmosis smear negative -- PCR pending Hgb 6.4 -- s/p 2u PRBC w/ hgb stable 8.3 Blood cultures pending Temp -- 37.6C evening 05/24, nothing further Tylenol available prn -- had been using tylenol/NSAIDs at home UA w/o evidence for infection Biofire NEGATIVE Added procal to AM labs Prior imaging: * CT chest w/ GGO L lung, hepatic steatosis. * Liver US w/ GB sludge --> of note, patient w/ RUQ/liver "fullness" worse w/ spicy/fatty foods. 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 Transfusion threshold 7.0 Transfusion reaction 01/2022 platelet did have a platelet transfusion reaction with single leg hives and no airway involvement Pretreat transfusions with Benadryl, Tylenol, hydrocortisone DVT prophylaxis: Pharmacal prophylaxis contraindicated due to thrombocytopenia and anemia (2) Lymphoma: (3) MDS (myelodysplastic syndrome): (4) Pancytopenia: Plan continued inpatient stay monitor cultures check stool cultures/cdiff ctap, ct chest pending -- RN to call to get patient down jarred ID consult pending heme/onc consulted Admission and Anticipated Discharge Date Admission Date: May 24, 2022 Supervising Physician Co-Signing Physician Notes The patient was not seen by me. The chart was reviewed. Case discussed with SHANTEL Alaniz. Agree with assessment and plan Subjective patient evaluated this afternoon, at bedside not yet taken down for imaging as ordered on admission, likely from 2u PRBC transfused overnight. Had reported some increased SOB at baseline/BRISENO walking up her stairs/taking breaks after showering. Not up/moving around currently but states she feels improved. Low temps 37.7/37.6 but reported temp 102F at home. blood cultures pending ID consultation placed. She notes she has had issues w/ her liver since starting chemo/fullness. Denies radiation to her R shoulderblade but does state sometimes depending on what she eats. Issues w/ fatty/spicy foods at times. Known sludge to GB. Also noted recent URIs/bronchitis and recovering since end of February. On fourth cycle abx and reported she was doing better until recently when she's had persistent fevers/night sweats at home. Improvement in appetite since admission.overall sense of improvement. Remains on ABx/PO vanco for hx cdiff. Stated formed bowel movements but having 4-5 already today. To monitor/alert if any worsening and will test for such/consider dificid. She does not believe she has ever been on this and "vanco worked before". No bleeding reported and she notes she is very careful with such. Discussed ever seeing a candy maker and they state they have been trying but have had issues. Will await CT chest and consult if needed for any abnormal findings. Questions/concerns addressed at this time. Physical Exam Physical Exam: General: WD/WN female , general pallor, sitting up in bed, at bedside, NAD HEENT: Atraumatic, normocephalic, mmm, trachea midline, no deviation Chest: port to LEFT chest, covered. dressing c/d/i, no evidence for infection Resp: CTAB, no w/c, on room air CV: RRR, no significant m/r/g, no pitting edema, pulses palpable, calves nontender GI: +BS, soft/NT w/ exception fullness reported to RUQ on deep palpation/R flank : voiding spontaneously MSK/Neuro: no focal deficit Psych: AOx3, pleasant and cooperative Results & Data Results & Data ([facility]) Vital Signs (Past 12 Hours) Vital Signs Temp Pulse Pulse Resp BP BP Pulse Ox 05/25/22 07:56 36.6 C 77 18 115/58 L 96 05/25/22 07:13 68 05/25/22 06:01 36.6 C 77 18 122/72 96 05/25/22 05:35 36.5 C 73 18 122/71 98 05/25/22 04:35 36.6 C 75 18 110/59 L 96 05/25/22 03:35 36.6 C 86 18 138/67 97 05/25/22 03:05 36.6 C 72 18 123/67 96 05/25/22 02:50 36.5 C 74 18 122/66 98 05/25/22 02:28 36.7 C 77 18 130/72 99 05/25/22 01:02 106 H 05/24/22 23:15 36.8 C 80 18 102/49 L 95 05/24/22 22:15 36.9 C 90 18 127/67 96 05/24/22 20:58 36.8 C 92 H 18 113/52 L 95 O2 Del Method 05/25/22 07:56 Room Air 05/25/22 07:13 05/25/22 06:01 05/25/22 05:35 05/25/22 04:35 05/25/22 03:35 05/25/22 03:05 05/25/22 02:50 05/25/22 02:28 05/25/22 01:02 05/24/22 23:15 Room Air 05/24/22 22:15 05/24/22 20:58 Laboratory Results 05/25/22 05/25/22 05/24/22 Range/Units 06:51 06:51 Unknown WBC 4.40 L (4.8-10.8) K/ul RBC 2.73 L (4.20-5.40) M/uL Hgb 8.3 L (12.0-16.0) g/dl Hct 23.6 L (37.0-47.0) % MCV 86.4 (80.0-100.0) fL MCH 30.4 (25.0-34.0) pg MCHC 35.2 (32.0-36.0) g/dL RDW Std Deviation 42.4 (36.4-46.3) fL RDW Coeff of Garcia 13.6 (11.5-14.5) % Plt Count 14 L* (130-400) K/uL Immature Gran % (Auto) 3.4 % Neut % (Auto) 66.2 % Lymph % (Auto) 20.9 % [place] % (Auto) 7.7 % Eos % (Auto) 0.2 % Baso % (Auto) 1.6 % Neut # (Auto) 2.91 (1.40-6.50) K/uL Lymph # (Auto) 0.92 L (1.2-3.4) K/uL [place] # (Auto) 0.34 (0.11-0.59) K/uL Eos # (Auto) 0.01 (0-0.50) K/uL Baso # (Auto) 0.07 (0-0.2) K/uL Immature Gran # (Auto) 0.15 (0.01-0.20) K/uL Sodium 139 (136-145) mmol/L Potassium 4.0 (3.5-5.1) mmol/L Chloride 109 H (98-107) mmol/L Carbon Dioxide 26 (21-32) mmol/L Anion Gap 4 (3-11) BUN 20 (6-23) mg/dl Creatinine 0.85 (0.6-1.2) mg/dl Est Cr Clr Drug Dosing 61.1 ml/min Est GFR ( Amer) 82.2 ml/min Est GFR (Non-Af Amer) 70.9 ml/min BUN/Creatinine Ratio 23.5 H (10-20) Glucose 118 H (70-99(Fasting)) mg/dl Calcium 9.0 (8.5-10.1) mg/dl Total Bilirubin 1.1 H D (0.2-1.0) mg/dl AST 13 (13-39) U/L ALT 16 (7-52) U/L Alkaline Phosphatase 54 (34-104) U/L C-Reactive Protein (0-0.5) mg/dl Total Protein 6.5 (6.0-8.3) gm/dl Albumin 3.6 (3.4-5.0) gm/dl Globulin 2.9 (2.5-4.0) gm/dl Albumin/Globulin Ratio 1.2 (0.9-2) Urine Color Urine Appearance (Clear) Urine pH (4.5-7.5) Ur Specific [place] (1.000-1.030) Urine Protein (Negative) Urine Glucose (UA) (Negative) Urine Ketones (Negative) Urine Blood (Negative) Urine Nitrite (Negative) Urine Bilirubin (Negative) Urine Urobilinogen (Negative) Ur Leukocyte Esterase (Negative) Urine WBC (Auto) (0-5) /hpf Urine RBC (Auto) (0-4) /hpf U Hyaline Cast (Auto) (0-5) /lpf U Epithel Cells (Auto) (0-5) /lpf Urine Bacteria (Auto) (Negative) Nasal Screen MRSA (PCR) Negative (Negative) Adenovirus (PCR) (NotDetected) Anaplasma Smear A. phagocytophilum DNA B. pertussis DNA (PCR) (NotDetected) B.parapertussis DNA PCR (NotDetected) Lyme Disease IgG Ab (Negative) Lyme Disease IgM Ab (Negative) C. pneumoniae DNA (PCR) (NotDetected) Coronavirus OC43 (PCR) (NotDetected) Coronavirus HKU1 (PCR) (NotDetected) Coronavirus 229E (PCR) (NotDetected) SARS-CoV-2 (PCR) (NotDetected) Coronavirus NL63 (PCR) (NotDetected) Human Metapneumovir PCR (NotDetected) Influenza Type A (PCR) (NotDetected) Influenza Type B (PCR) (NotDetected) M. pneumoniae (PCR) (NotDetected) Parainfluenza 1 (PCR) (NotDetected) Parainfluenza 2 (PCR) (NotDetected) Parainfluenza 3 (PCR) (NotDetected) Parainfluenza 4 (PCR) (NotDetected) RSV (PCR) (NotDetected) Entero/Rhino (PCR) (NotDetected) Beta-(1,3)-D-Glucan B-(1,3)-D-Glucan Intrp Blood Type Antibody Screen Crossmatch 05/24/22 05/24/22 05/24/22 Range/Units Unknown 23:18 22:00 WBC (4.8-10.8) K/ul RBC (4.20-5.40) M/uL Hgb 6.9 L* (12.0-16.0) g/dl Hct 20.5 L* (37.0-47.0) % MCV (80.0-100.0) fL MCH (25.0-34.0) pg MCHC (32.0-36.0) g/dL RDW Std Deviation (36.4-46.3) fL RDW Coeff of Garcia (11.5-14.5) % Plt Count (130-400) K/uL Immature Gran % (Auto) % Neut % (Auto) % Lymph % (Auto) % [place] % (Auto) % Eos % (Auto) % Baso % (Auto) % Neut # (Auto) (1.40-6.50) K/uL Lymph # (Auto) (1.2-3.4) K/uL [place] # (Auto) (0.11-0.59) K/uL Eos # (Auto) (0-0.50) K/uL Baso # (Auto) (0-0.2) K/uL Immature Gran # (Auto) (0.01-0.20) K/uL Sodium (136-145) mmol/L Potassium (3.5-5.1) mmol/L Chloride (98-107) mmol/L Carbon Dioxide (21-32) mmol/L Anion Gap (3-11) BUN (6-23) mg/dl Creatinine (0.6-1.2) mg/dl Est Cr Clr Drug Dosing ml/min Est GFR ( Amer) ml/min Est GFR (Non-Af Amer) ml/min BUN/Creatinine Ratio (10-20) Glucose (70-99(Fasting)) mg/dl Calcium (8.5-10.1) mg/dl Total Bilirubin (0.2-1.0) mg/dl AST (13-39) U/L ALT (7-52) U/L Alkaline Phosphatase (34-104) U/L C-Reactive Protein (0-0.5) mg/dl Total Protein (6.0-8.3) gm/dl Albumin (3.4-5.0) gm/dl Globulin (2.5-4.0) gm/dl Albumin/Globulin Ratio (0.9-2) Urine Color Yellow Urine Appearance Clear (Clear) Urine pH 6.0 (4.5-7.5) Ur Specific [place] 1.006 (1.000-1.030) Urine Protein Negative (Negative) Urine Glucose (UA) Negative (Negative) Urine Ketones Negative (Negative) Urine Blood Trace H (Negative) Urine Nitrite Negative (Negative) Urine Bilirubin Negative (Negative) Urine Urobilinogen Negative (Negative) Ur Leukocyte Esterase Negative (Negative) Urine WBC (Auto) 0 (0-5) /hpf Urine RBC (Auto) 0-4 (0-4) /hpf U Hyaline Cast (Auto) 0 (0-5) /lpf U Epithel Cells (Auto) 5-10 H (0-5) /lpf Urine Bacteria (Auto) Negative (Negative) Nasal Screen MRSA (PCR) (Negative) Adenovirus (PCR) Not Detected (NotDetected) Anaplasma Smear A. phagocytophilum DNA B. pertussis DNA (PCR) Not Detected (NotDetected) B.parapertussis DNA PCR Not Detected (NotDetected) Lyme Disease IgG Ab (Negative) Lyme Disease IgM Ab (Negative) C. pneumoniae DNA (PCR) Not Detected (NotDetected) Coronavirus OC43 (PCR) Not Detected (NotDetected) Coronavirus HKU1 (PCR) Not Detected (NotDetected) Coronavirus 229E (PCR) Not Detected (NotDetected) SARS-CoV-2 (PCR) Not Detected (NotDetected) Coronavirus NL63 (PCR) Not Detected (NotDetected) Human Metapneumovir PCR Not Detected (NotDetected) Influenza Type A (PCR) Not Detected (NotDetected) Influenza Type B (PCR) Not Detected (NotDetected) M. pneumoniae (PCR) Not Detected (NotDetected) Parainfluenza 1 (PCR) Not Detected (NotDetected) Parainfluenza 2 (PCR) Not Detected (NotDetected) Parainfluenza 3 (PCR) Not Detected (NotDetected) Parainfluenza 4 (PCR) Not Detected (NotDetected) RSV (PCR) Not Detected (NotDetected) Entero/Rhino (PCR) Not Detected (NotDetected) Beta-(1,3)-D-Glucan B-(1,3)-D-Glucan Intrp Blood Type Antibody Screen Crossmatch 05/24/22 05/24/22 05/24/22 Range/Units 16:32 16:32 16:32 WBC (4.8-10.8) K/ul RBC (4.20-5.40) M/uL Hgb (12.0-16.0) g/dl Hct (37.0-47.0) % MCV (80.0-100.0) fL MCH (25.0-34.0) pg MCHC (32.0-36.0) g/dL RDW Std Deviation (36.4-46.3) fL RDW Coeff of Garcia (11.5-14.5) % Plt Count (130-400) K/uL Immature Gran % (Auto) % Neut % (Auto) % Lymph % (Auto) % [place] % (Auto) % Eos % (Auto) % Baso % (Auto) % Neut # (Auto) (1.40-6.50) K/uL Lymph # (Auto) (1.2-3.4) K/uL [place] # (Auto) (0.11-0.59) K/uL Eos # (Auto) (0-0.50) K/uL Baso # (Auto) (0-0.2) K/uL Immature Gran # (Auto) (0.01-0.20) K/uL Sodium (136-145) mmol/L Potassium (3.5-5.1) mmol/L Chloride (98-107) mmol/L Carbon Dioxide (21-32) mmol/L Anion Gap (3-11) BUN (6-23) mg/dl Creatinine (0.6-1.2) mg/dl Est Cr Clr Drug Dosing ml/min Est GFR ( Amer) ml/min Est GFR (Non-Af Amer) ml/min BUN/Creatinine Ratio (10-20) Glucose (70-99(Fasting)) mg/dl Calcium (8.5-10.1) mg/dl Total Bilirubin (0.2-1.0) mg/dl AST (13-39) U/L ALT (7-52) U/L Alkaline Phosphatase (34-104) U/L C-Reactive Protein (0-0.5) mg/dl Total Protein (6.0-8.3) gm/dl Albumin (3.4-5.0) gm/dl Globulin (2.5-4.0) gm/dl Albumin/Globulin Ratio (0.9-2) Urine Color Urine Appearance (Clear) Urine pH (4.5-7.5) Ur Specific [place] (1.000-1.030) Urine Protein (Negative) Urine Glucose (UA) (Negative) Urine Ketones (Negative) Urine Blood (Negative) Urine Nitrite (Negative) Urine Bilirubin (Negative) Urine Urobilinogen (Negative) Ur Leukocyte Esterase (Negative) Urine WBC (Auto) (0-5) /hpf Urine RBC (Auto) (0-4) /hpf U Hyaline Cast (Auto) (0-5) /lpf U Epithel Cells (Auto) (0-5) /lpf Urine Bacteria (Auto) (Negative) Nasal Screen MRSA (PCR) (Negative) Adenovirus (PCR) (NotDetected) Anaplasma Smear A. phagocytophilum DNA Pending B. pertussis DNA (PCR) (NotDetected) B.parapertussis DNA PCR (NotDetected) Lyme Disease IgG Ab Negative (Negative) Lyme Disease IgM Ab Negative (Negative) C. pneumoniae DNA (PCR) (NotDetected) Coronavirus OC43 (PCR) (NotDetected) Coronavirus HKU1 (PCR) (NotDetected) Coronavirus 229E (PCR) (NotDetected) SARS-CoV-2 (PCR) (NotDetected) Coronavirus NL63 (PCR) (NotDetected) Human Metapneumovir PCR (NotDetected) Influenza Type A (PCR) (NotDetected) Influenza Type B (PCR) (NotDetected) M. pneumoniae (PCR) (NotDetected) Parainfluenza 1 (PCR) (NotDetected) Parainfluenza 2 (PCR) (NotDetected) Parainfluenza 3 (PCR) (NotDetected) Parainfluenza 4 (PCR) (NotDetected) RSV (PCR) (NotDetected) Entero/Rhino (PCR) (NotDetected) Beta-(1,3)-D-Glucan Pending B-(1,3)-D-Glucan Intrp Pending Blood Type Antibody Screen Crossmatch 05/24/22 05/24/22 05/24/22 Range/Units 16:32 13:17 13:17 WBC (4.8-10.8) K/ul RBC (4.20-5.40) M/uL Hgb 5.5 L* (12.0-16.0) g/dl Hct 16.6 L* (37.0-47.0) % MCV (80.0-100.0) fL MCH (25.0-34.0) pg MCHC (32.0-36.0) g/dL RDW Std Deviation (36.4-46.3) fL RDW Coeff of Garcia (11.5-14.5) % Plt Count 15 L* (130-400) K/uL Immature Gran % (Auto) % Neut % (Auto) % Lymph % (Auto) % [place] % (Auto) % Eos % (Auto) % Baso % (Auto) % Neut # (Auto) (1.40-6.50) K/uL Lymph # (Auto) (1.2-3.4) K/uL [place] # (Auto) (0.11-0.59) K/uL Eos # (Auto) (0-0.50) K/uL Baso # (Auto) (0-0.2) K/uL Immature Gran # (Auto) (0.01-0.20) K/uL Sodium (136-145) mmol/L Potassium (3.5-5.1) mmol/L Chloride (98-107) mmol/L Carbon Dioxide (21-32) mmol/L Anion Gap (3-11) BUN (6-23) mg/dl Creatinine (0.6-1.2) mg/dl Est Cr Clr Drug Dosing ml/min Est GFR ( Amer) ml/min Est GFR (Non-Af Amer) ml/min BUN/Creatinine Ratio (10-20) Glucose (70-99(Fasting)) mg/dl Calcium (8.5-10.1) mg/dl Total Bilirubin (0.2-1.0) mg/dl AST (13-39) U/L ALT (7-52) U/L Alkaline Phosphatase (34-104) U/L C-Reactive Protein 5.22 H (0-0.5) mg/dl Total Protein (6.0-8.3) gm/dl Albumin (3.4-5.0) gm/dl Globulin (2.5-4.0) gm/dl Albumin/Globulin Ratio (0.9-2) Urine Color Urine Appearance (Clear) Urine pH (4.5-7.5) Ur Specific [place] (1.000-1.030) Urine Protein (Negative) Urine Glucose (UA) (Negative) Urine Ketones (Negative) Urine Blood (Negative) Urine Nitrite (Negative) Urine Bilirubin (Negative) Urine Urobilinogen (Negative) Ur Leukocyte Esterase (Negative) Urine WBC (Auto) (0-5) /hpf Urine RBC (Auto) (0-4) /hpf U Hyaline Cast (Auto) (0-5) /lpf U Epithel Cells (Auto) (0-5) /lpf Urine Bacteria (Auto) (Negative) Nasal Screen MRSA (PCR) (Negative) Adenovirus (PCR) (NotDetected) Anaplasma Smear See Comment A. phagocytophilum DNA B. pertussis DNA (PCR) (NotDetected) B.parapertussis DNA PCR (NotDetected) Lyme Disease IgG Ab (Negative) Lyme Disease IgM Ab (Negative) C. pneumoniae DNA (PCR) (NotDetected) Coronavirus OC43 (PCR) (NotDetected) Coronavirus HKU1 (PCR) (NotDetected) Coronavirus 229E (PCR) (NotDetected) SARS-CoV-2 (PCR) (NotDetected) Coronavirus NL63 (PCR) (NotDetected) Human Metapneumovir PCR (NotDetected) Influenza Type A (PCR) (NotDetected) Influenza Type B (PCR) (NotDetected) M. pneumoniae (PCR) (NotDetected) Parainfluenza 1 (PCR) (NotDetected) Parainfluenza 2 (PCR) (NotDetected) Parainfluenza 3 (PCR) (NotDetected) Parainfluenza 4 (PCR) (NotDetected) RSV (PCR) (NotDetected) Entero/Rhino (PCR) (NotDetected) Beta-(1,3)-D-Glucan B-(1,3)-D-Glucan Intrp Blood Type O Positive Antibody Screen NEGATIVE Crossmatch See Detail Diagnostic Findings Chest X-Ray 05/24/22 14:59 SINGLE VIEW CHEST CLINICAL HISTORY: Fever FINDINGS: An AP, portable, upright chest radiograph is compared to study dated 03/23/2022 and correlated with chest CT dated 05/02/2022. A left subclavian central venous infusion port is unchanged in position. The heart is enlarged. The pulmonary vasculature is noncongested. Calcified mediastinal and right hilar lymph nodes are similar to previous. The lungs and pleural spaces are clear. No pneumothorax is seen. The skeletal structures are osteopenic. The bony thorax is grossly intact. IMPRESSION: Cardiomegaly with no active disease in the chest. ACT 112: Negative or not required by law. Electronically signed by: Irvin Martinez M.D. 05/24/2022 6:04 PM PG Care Time/CCT Total # of Minutes Spent Total Time Spent with Patient: Total time spent is greater than 50% in coordination of care (as documented) at patient's floor/unit and/or counseling patient: Coding Level of Care Code 67911 SUB INP/OBS CARE 3/50MIN Diagnoses Fever R50.9 Lymphoma C85.90 MDS (myelodysplastic syndrome) D46.9 Pancytopenia D61.818
[2022-05-25] MEDS: VANCOMYCIN HCL 125 MG/2.5ML SOLN PO SCH ×2 (09:30→21:06)
[2022-05-25] MEDS: RASPBERRY SYRUP 5 ML UDP PO SCH ×2 (09:31→21:06)
[2022-05-25] MEDS ORDERED: OPTIRAY 350 100ml IV ONE (14:43)
--- NOTE | 2022-05-25 15:06 | CT Scan Report ---
CT SCAN OF THE CHEST WITH IV CONTRAST CLINICAL HISTORY: Fever. Lymphoma. COMPARISON STUDY: Chest CT scans dated 05/02/2022 and 10/26/2018. TECHNIQUE: Following the IV administration of 87 cc of Optiray 350, CT scan of the thorax was perform ed from the thoracic inlet to the upper abdomen. Images are reviewed in the axial, sagittal, and uzair nal planes. IV contrast was administered without complication. A dose lowering technique was utilize d adhering to the principles of ALARA. CT DOSE: 667.33 mGy.cm FINDINGS: Thyroid: Imaged portions of the thyroid gland are normal in size and attenuation. Thoracic aorta: There is moderate atherosclerotic calcification of the thoracic aorta, which is carol l in caliber and demonstrates standard 3-vessel arch anatomy. No dissection is seen. Pulmonary vasculature: The pulmonary trunk is normal in caliber. There are no filling defects identif ied in the central pulmonary vessels to indicate pulmonary embolus. Note that this examination was no t protocoled for evaluation of the pulmonary arteries. Heart: A left subclavian central venous infusion port is in place. The heart is mildly enlarged notin g trace pericardial effusion. Lungs and pleural spaces: There is no airspace consolidation or pleural effusion. Calcified granuloma s are incidentally noted. The trachea and central airways are clear. Mediastinum: There are calcified mediastinal nodes. No mediastinal lymphadenopathy is seen. Sheree: There are calcified right hilar nodes. No hilar adenopathy is identified. Axillae: There is no axillary lymphadenopathy. Upper abdomen: The liver appears steatotic. The spleen is normal in size, measuring 9.4 cm in length. A small hiatal hernia is noted. Skeletal structures: The skeletal structures are osteopenic. No lytic or blastic bony lesions are see n. Degenerative change and mild hyperkyphosis is noted in the thoracic spine. IMPRESSION: 1. The lungs are clear. 2. No thoracic lymphadenopathy is identified. 3. Cardiomegaly. 4. Hepatic steatosis. 5. Additional findings as above. ACT 112: Negative or not required by law. Electronically signed by: Irvin Martinez M.D. 05/25/2022 3:04 PM
--- NOTE | 2022-05-25 15:14 | CT Scan Report ---
CT abd pelvis IV con only CLINICAL HISTORY: persistent fever, hx B-cell lymphoma. ?splenic les TECHNIQUE: Helical axial images of the abdomen and pelvis were obtained and displayed. Automated dose lowering techniques and/or adjustment according to patient size were utilized for this exam. This e xam was performed with intravenous contrast. COMPARISON: Comparison is made to CT abdomen pelvis 10/03/2021 FINDINGS: Lower chest: For findings above the diaphragm, please see CT chest performed same day. Liver: Hepatic steatosis is noted. Gallbladder and biliary tree: Layering radiodense material is seen in the dependent portion of the li surendra representing sludge. No intra- or extrahepatic biliary ductal dilation. Pancreas: Unremarkable, no focal lesions. Spleen: Calcifications are noted in the spleen compatible with prior granulomatous disease. Adrenals: Unremarkable. Kidneys and ureters: Unremarkable. Bladder: Unremarkable. Reproductive organs: Unremarkable. Bowel: Patient is status post rectal resection. Numerous diverticula are seen without evidence of div erticulitis. A hiatal hernia is seen. Lymph nodes Retroperitoneal: Unremarkable. Pelvic: Unremarkable. Mesenteric: Unremarkable. Peritoneum: Normal. Vessels: Unremarkable. Abdominal wall: Unremarkable. Bones: Left hip total arthroplasty is seen. IMPRESSION: 1. No evidence of lymphadenopathy in this patient with history of B-cell lymphoma. No acute abnormal ities are seen. No splenic lesion. 2. Hepatic steatosis. ACT 112: Negative or not required by law. Electronically signed by: Jose Tom M.D. 05/25/2022 3:12 PM
[2022-05-25] MEDS: ACETAMINOPHEN 500 MG TAB PO PRN (16:56)
--- NOTE | 2022-05-25 22:16 | Consultation ---
Date of Consultation May 25, 2022 Assessment & Plan (1) Fever: Despite her mild dysplasia, she is only modestly neutropenic and has intact immunoglobulin levels has shown a pattern of recurrent fevers which seem to respond to antibiotics but relapse soon thereafter for the most part with associated respiratory symptoms though occasionally with urological symptoms as well. 05/02/[address] of the chest seem to show improvement from the infiltrates that were seen at the very beginning of the year. Current CT of the abdomen is unremarkable. Cultures of the blood and urine have not been revealing. Current admission following a more severe spike in her fever and lack of response to antibiotics. It will be critical to define and hopefully rectify the source of her fever prior to be able to proceed to transplant given the profound and prolonged immunosuppression that will accompany it. Certainly does not seem to show evidence of any typical bacterial infections by culture or by the recurrent nature of her fevers. Atypical infection will have to be a consideration as well. Noninfectious fever would be a diagnosis of exclusion and would be less likely associated with the myelodysplastic/AML spectrum of disorders that she currently exhibits Appreciate help from the hospitalist and ID services in sorting this out (2) MDS (myelodysplastic syndrome): Posttreatment myelodysplastic syndrome certainly has the concerning potential to "tip over" into a more acute leukemia-like picture. She has been actively pursuing the possibility of a haploidentical transplant and doing relatively well up until the last 2 months with intermittent transfusion support. As above, we really cannot proceed forward with the plan for transplant, however, until we have diagnosed and hopefully treated to eradication the current febrile pattern Plan 1. Further work-up and empiric antibiotics as per ID and hospitalist services 2. Conservative transfusion support as ongoing packed red cell transfusions can lead to excess iron accumulation, both Red cell and platelet transfusions can be associated with allergic and infectious complications, and the greater exposure to transfusions pretransplant may make her more resistant to transfusion support during the transplant itself or even possibly slightly increase the risk of rejection of her transplanted cells 3. Transfusion products should all be irradiated. 4. She has had a transfusion reaction in the past and technically the need to radiate the products precludes the ability to offer washed products. Should premedicate with Benadryl 25 mg p.o., Tylenol 650 mg p.o. and hydrocortisone 50 mg IV prior to any transfusion and watch closely for reactions as the transfusion proceeds History of Present Illness Reason for Consultation: Patient with previous history of B-cell acute lymphoblastic leukemia treated to remission with initial induction followed by maintenance therapy but with tra nsplant deferred. More recently has developed MDS with persistent anemia/thrombocytopenia in the process of seeking a potential haploidentical transplant whose had recurring/remitting fevers that have worsened most recently leading to her admission Attending Physician: Darnell Brothers MD History of Present Illness Please see more detailed notes that have been scanned to the [facility] chart. However, please note that the dictation which in [facility] indicates that date of visit was "05/24/2022" was actually a visit from 05/03/2022 that has somehow in the process of reproduction been relabeled as yesterday's date. 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 She had done well until May 2021 since that time is shown a worsening probably treatment related myelodysplasia with low-level blasts and persistent transfusion requiring anemia and thrombocytopenia. She is exploring the possibility of a haploidentical transplant from her son at [facility] Since January she has had a series of mild febrile episodes initially focused on recurring respiratory symptomatology that would seem to respond to antibiotics but then recur. There is also been a couple episodes of urological symptomatology. Details can be found in the scanned notes but she has had a series of antibiotics including oral third-generation cephalosporins, levofloxacin, and ciprofloxacin. She had presented to my office on 05/24/2022 with higher than usual fevers reaching close to 102 and more significant malaise and was admitted We note that chest CT from March 25 had shown a series of nodular and irregular opacities with possible multifocal pneumonia but a follow-up study 05/02/2022 showed improved aeration with only minimal residual groundglass changes, no lymphadenopathy, no other obvious major explanation for the recurring fevers. A CT scan of the abdomen/pelvis had been requested at a visit last week but not yet scheduled prior to her admission yesterday While there is been some mild downward trend, and her absolute neutrophil counts have remained above 1000 and March immunoglobulin determination showed an actual high normal immunoglobulin G level at 1315 mg/dL Allergies Allergy/AdvReac Type Severity Reaction Status Date / Time hydromorphone [From Dilaudid] Allergy Severe Hallucinati Verified 05/03/22 08:02 ng latex Allergy Severe SYSTEMIC Verified 05/03/22 08:02 ALLERGIC RESPONSE Penicillins Allergy Severe HIVES,DIFF. Verified 05/03/22 08:02 BREATHING codeine AdvReac Intermediate INDUCES Verified 05/03/22 08:02 MIGRAINE HEADACHES verapamil AdvReac Mild very sleepy Verified 05/03/22 08:02 morphine AdvReac Migraine Verified 05/03/22 08:02 Home Medications Medication Instructions Recorded Confirmed Type acetaminophen 500 mg tablet 1,000 mg PO DIRECTED PRN Pain 10/26/18 05/03/22 History (Tylenol Extra Strength) cholecalciferol (vitamin D3) 1,250 50,000 unit PO 2XWK 09/16/20 05/03/22 History mcg (50,000 unit) capsule Lactobacillus 1 cap PO DAILY 10/15/20 05/03/22 History acidophilus-Bifidobac.animalis 2 billion cell capsule folic acid 1 mg tablet 1 mg PO DAILY 06/23/21 05/03/22 History prednisone 20 mg tablet See Rx Instructions PO .COMPLEX 03/22/22 05/03/22 Rx #30 tabs benzonatate 100 mg capsule 100 mg PO TID PRN Cough 03/28/22 05/03/22 History Patient History Medical History A-fib remote hx of idiopathic pericarditis and transient a. fib (2015)- advised by cardiology 10/2016 to f/u PRN Anemia hgb stable in the 10-11 range Anxiety prior to procedures Bronchitis Delayed recovery from anesthesia GERD (gastroesophageal reflux disease) r/t chemo History of recent steroid use per RN phone interview, prednisone for first 5 days of 28 days chemo cycle/did not indicate last use History of thrombocytopenia fluctuating platelets since leukemia diagnosis/chemo treatments Hypertension Leukemia dx 10/2018 Migraine Osteoarthritis Peripheral neuropathy R/L hands, feet Port-A-Cath in place (04/25/19) Insertion of Mediport Left Subclavian Dr. Hinton 04/25/19 Sleep apnea "no official diagnosis" per RN phone interview/no further details- ?DEMOND Vitamin D deficiency Surgical History H/O section X2 History of bone marrow biopsy History of colon resection History of colonoscopy History of total hip arthroplasty LEFT S/P breast biopsy bilat S/P PICC central line placement DOUBLE LUMEN > OCT 2018> RIGHT ARM Family History Mother Cancer Breast cancer Brother Cancer Heart disease Social History Smoking Status: Never smoker Second Hand Exposure: No; Hx Alcohol Use: No Hx Substance Use: No Preferred Language: Luxembourgish Communication Ability: 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 Beliefs That Will Affect Care: None marital status: Current Living Situation: Spouse and Family Feels Safe at Home: Yes Assistive Devices: Bedside Commode, Cane and Walker Physical Exam Physical Exam: Fatigued but not toxic, vital signs currently stable Lungs seem clear, cardiac rhythm is borderline tachycardic but stable without pathological murmur Port-A-Cath site looks stable The abdomen shows no dramatic tenderness Results & Data ([facility]) Vital Signs (Past 12 Hours) Vital Signs Temp Pulse Pulse Resp BP Pulse Ox O2 Del Method 05/25/22 18:29 37.5 C 100 H 18 129/65 92 Room Air 05/25/22 16:48 39.0 C H 05/25/22 16:01 89 05/25/22 15:19 37.9 C H 92 H 18 145/70 H 99 Room Air 05/25/22 11:21 Room Air 05/25/22 11:21 36.7 C 84 18 115/61 99 Room Air Diagnostic Findings Chest X-Ray 05/24/22 14:59 SINGLE VIEW CHEST CLINICAL HISTORY: Fever FINDINGS: An AP, portable, upright chest radiograph is compared to study dated 03/23/2022 and correlated with chest CT dated 05/02/2022. A left subclavian central venous infusion port is unchanged in position. The heart is enlarged. The pulmonary vasculature is noncongested. Calcified mediastinal and right hilar lymph nodes are similar to previous. The lungs and pleural spaces are clear. No pneumothorax is seen. The skeletal structures are osteopenic. The bony thorax is grossly intact. IMPRESSION: Cardiomegaly with no active disease in the chest. ACT 112: Negative or not required by law. Electronically signed by: Irvin Martinez M.D. 05/24/2022 6:04 PM Abdomen/Pelvis CT 05/24/22 16:30 CT abd pelvis IV con only CLINICAL HISTORY: persistent fever, hx B-cell lymphoma. ?splenic les TECHNIQUE: Helical axial images of the abdomen and pelvis were obtained and displayed. Automated dose lowering techniques and/or adjustment according to patient size were utilized for this exam. This exam was performed with intravenous contrast. COMPARISON: Comparison is made to CT abdomen pelvis 10/03/2021 FINDINGS: Lower chest: For findings above the diaphragm, please see CT chest performed same day. Liver: Hepatic steatosis is noted. Gallbladder and biliary tree: Layering radiodense material is seen in the dependent portion of the likely representing sludge. No intra- or extrahepatic biliary ductal dilation. Pancreas: Unremarkable, no focal lesions. Spleen: Calcifications are noted in the spleen compatible with prior granulomatous disease. Adrenals: Unremarkable. Kidneys and ureters: Unremarkable. Bladder: Unremarkable. Reproductive organs: Unremarkable. Bowel: Patient is status post rectal resection. Numerous diverticula are seen without evidence of diverticulitis. A hiatal hernia is seen. Lymph nodes Retroperitoneal: Unremarkable. Pelvic: Unremarkable. Mesenteric: Unremarkable. Peritoneum: Normal. Vessels: Unremarkable. Abdominal wall: Unremarkable. Bones: Left hip total arthroplasty is seen. IMPRESSION: 1. No evidence of lymphadenopathy in this patient with history of B-cell lymphoma. No acute abnormalities are seen. No splenic lesion. 2. Hepatic steatosis. ACT 112: Negative or not required by law. Electronically signed by: Jose Tom M.D. 05/25/2022 3:[address] 05/25/22 13:57 CT SCAN OF THE CHEST WITH IV CONTRAST CLINICAL HISTORY: Fever. Lymphoma. COMPARISON STUDY: Chest CT scans dated 05/02/2022 and 10/26/2018. TECHNIQUE: Following the IV administration of 87 cc of Optiray 350, CT scan of the thorax was performed from the thoracic inlet to the upper abdomen. Images are reviewed in the axial, sagittal, and coronal planes. IV contrast was administered without complication. A dose lowering technique was utilized adhering to the principles of ALARA. CT DOSE: 667.33 mGy.cm FINDINGS: Thyroid: Imaged portions of the thyroid gland are normal in size and attenuation. Thoracic aorta: There is moderate atherosclerotic calcification of the thoracic aorta, which is normal in caliber and demonstrates standard 3-vessel arch anatomy. No dissection is seen. Pulmonary vasculature: The pulmonary trunk is normal in caliber. There are no filling defects identified in the central pulmonary vessels to indicate pulmonary embolus. Note that this examination was not protocoled for evaluation of the pulmonary arteries. Heart: A left subclavian central venous infusion port is in place. The heart is mildly enlarged noting trace pericardial effusion. Lungs and pleural spaces: There is no airspace consolidation or pleural effusion. Calcified granulomas are incidentally noted. The trachea and central airways are clear. Mediastinum: There are calcified mediastinal nodes. No mediastinal lymphadenopathy is seen. Sheree: There are calcified right hilar nodes. No hilar adenopathy is identified. Axillae: There is no axillary lymphadenopathy. Upper abdomen: The liver appears steatotic. The spleen is normal in size, measuring 9.4 cm in length. A small hiatal hernia is noted. Skeletal structures: The skeletal structures are osteopenic. No lytic or blastic bony lesions are seen. Degenerative change and mild hyperkyphosis is noted in the thoracic spine. IMPRESSION: 1. The lungs are clear. 2. No thoracic lymphadenopathy is identified. 3. Cardiomegaly. 4. Hepatic steatosis. 5. Additional findings as above. ACT 112: Negative or not required by law. Electronically signed by: Irvin Martinez M.D. 05/25/2022 3:04 PM PG Care Time/CCT Total # of Minutes Spent Total Time Spent with Patient: Total time spent is greater than 50% in coordination of care (as documented) at patient's floor/unit and/or counseling patient: Coding Level of Care Code 34962 IN/OBS CONSULT LVL 3,45M Diagnoses Fever R50.9 MDS (myelodysplastic syndrome) D46.9
[2022-05-26] MEDS: CEFEPIME 2,000 MG in SYRINGE 0 ML IV SCH ×2 (04:36→13:52)
[2022-05-26] MEDS: DOXYCYCLINE HYCLATE 100 MG CAP PO SCH (06:07)
--- NOTE | 2022-05-26 06:20 | Electrocardiogram Report ---
Test Reason : Blood Pressure : / mmHG Vent. Rate : 090 BPM Atrial Rate : 090 BPM P-R Int : 148 ms QRS Dur : 084 ms QT Int : 374 ms P-R-T Axes : 056 037 058 degrees QTc Int : 457 ms Poor data quality, interpretation may be adversely affected Normal sinus rhythm Nonspecific T wave abnormality Abnormal ECG When compared with ECG of 28-DEC-2020 11:21, No significant change was found Confirmed by Joon Vyas ([id number]) on 05/26/2022 6:19:52 AM Referred By: Micah Hurst Confirmed By:Joon Vyas
--- NOTE | 2022-05-26 07:26 | Hospitalist Progress Note ---
Date of Service May 26, 2022 Assessment & Plan (1) Fever: Plan: Fever of unknown origin Discussed with infectious disease. --> Expanded antibiotics from cefepime to include: * Doxy IV BID * Vancomycin IV -- discontinued per ID * Vanco PO for hx cdiff w/ recurrence Lyme negative, Anaplasmosis smear negative -- PCR pending Hgb 6.4 -- s/p 2u PRBC w/ hgb stable 8.3 Blood cultures pending Temp -- 37.6C evening 05/24, nothing further Tylenol available prn -- had been using Tylenol/NSAIDs at home UA w/o evidence for infection Biofire NEGATIVE Added procal to AM labs -- 0.05 Prior imaging: * CT chest w/ GGO L lung (RESOLVED ON REPEAT IMAGING BELOW), hepatic steatosis. * Liver US w/ GB sludge --> of note, patient w/ RUQ/liver "fullness" worse w/ spicy/fatty foods. Also check CMV/EBV/hepatitis panel for completeness Update 05/26 Temp 39C yesterday afternoon BCx remain NGTD, almost at 48 hours at present stool studies pending, EBV/CMV/hepatitis panel given possible viral cause however could be underlying malignancy - fungitel pending, anaplasmosis PCR pending CT Chest/Abdomen/Pelvis without significant abnormality, did not GB sludge/layering c/w sludge CT hip negative for infection given prior hardware Discussed w/ ID and d/c Doxy given nausea/vomiting this morning could be from such and tick labs negative at this time Antiemetics w/ Zofran prn made available Discussion and will check Liver US for further eval given GB sludge and nausea/vomiting/loose stools -- NPO prior to imaging to eval GB pathology +NS +20meq @ 70cc/hr while awaiting image/testing Heme/onc consulted -- appreciate recs Monitor labs on repeat (2) MDS (myelodysplastic syndrome): Plan: MDS Hgb <7 on admit 2u PRBC Repeat hgb 8.3 --> 7.9 and continue to monitor Transfuse for hgb <7.5, platelets w/ bleeding <20k, <10 otherwise > Of note, requires irradiated blood products Heme/onc consulted -- messaged about blown vessel to her LEFT eye this morning (05/26)/need for platelets -- to hold off for now Monitor hgb/plt in AM Posttreatment myelodysplastic syndrome Noted 05/2021 Bone marrow biopsy with multilineage dysplasia Following with [facility] [place] for consideration of allogenic transplant from son versus immunity transplant. 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 difficile while with biotics On empiric Vanco PO 125,mg BID Reporting BM x 5 already -- checking stool biofire/cdiff testing Also getting CTAP as above May require PO dificid if recurrence infection not resolved w/ PO vanco --> stool testing NEGATIVE stool PCR (5) Pancytopenia: Plan: as above DVT prophylaxis: Pharmacal prophylaxis contraindicated due to thrombocytopenia and anemia (6) Nausea and vomiting: Plan: this morning following doxycycline use doxy d/c by ID as possible cause added zofran prn start pepcid IVP daily while on abx , consideration for PPI if needed/ineffective checking RUQ US for further eval given sludge/monitor LFT (Tb 1.1 on admit, normalized), ALP w/oo significant elevation Plan continued inpatient stay monitor cultures check stool cultures/cdiff hepatitis panel/EBV/CMV titers pending check RUQ US for further eval sludge/surgery if needed heme/onc consultation appreciated ID consulted and following -- further recs pending testing Admission and Anticipated Discharge Date Admission Date: May 24, 2022 Supervising Physician Co-Signing Physician Notes The patient was not seen by me. Case discussed with SHANTEL Alaniz. The chart was reviewed. Agree with assessment and plan Subjective attempted to see patient this morning but was down at testing seen following CT of her hip around 2pm with infectious disease. Fever 39C yesterday, she felt this, and reports she knows when she is [address] chest/a/p unrevealing, CT hip done this morning negative for acute process. Formed stool, no further significant diarrhea but did get stool sample this morning. she reported nausea with significant vomiting after her dose of Doxycycline this morning about an hour after taking such. She notes about an hour or two ago noticed popped blood vessel in her left eye, likely from vomiting. Given Lyme testing negative, ID discontinuing PO Doxy at this time given could be causing more harm than good. Agreed that given RUQ fullness/nausea/vomiting will obtain RUQ US to look at liver/GB given sludge. Can consult surgery if needed. She notes she got some gingerale and improvement in nausea and able to get some lunch in her w/ improvement. Denies need for phenergan and will continue zofran as needed. will also place on daily pepcid IVP in meantime. questions/concerns addressed at this time. Physical Exam Physical Exam: General: WD/WN female , general pallor, sitting up in bed, NAD, ID consultation followup currently HEENT: Atraumatic, normocephalic, mm slightly dry, trachea midline, no deviation Chest: port to LEFT chest, covered. dressing c/d/i, no evidence for infection Resp: CTAB, no w/c, on room air CV: RRR, no significant m/r/g, no pitting edema, pulses palpable, calves nontender GI: +BS, soft/NT w/ exception fullness reported to RUQ on deep palpation under ribs, no rebound/guarding : voiding spontaneously MSK/Neuro: no focal deficit Psych: AOx3, pleasant and cooperative Results & Data Results & Data ([facility]) Vital Signs (Past 12 Hours) Vital Signs Temp Pulse Pulse Resp BP Pulse Ox O2 Del Method 05/26/22 02:53 36.8 C 73 18 121/65 96 Room Air 05/26/22 00:04 80 05/25/22 22:59 37.0 C 81 18 109/61 97 Room Air Laboratory Results 05/25/22 05/25/22 05/25/22 Range/Units 14:52 06:51 06:51 Immature Gran % (Auto) 3.4 % Neut % (Auto) 66.2 % Lymph % (Auto) 20.9 % Pepin % (Auto) 7.7 % Eos % (Auto) 0.2 % Baso % (Auto) 1.6 % Neut # (Auto) 2.91 (1.40-6.50) K/uL Lymph # (Auto) 0.92 L (1.2-3.4) K/uL Pepin # (Auto) 0.34 (0.11-0.59) K/uL Eos # (Auto) 0.01 (0-0.50) K/uL Baso # (Auto) 0.07 (0-0.2) K/uL Immature Gran # (Auto) 0.15 (0.01-0.20) K/uL Sodium 139 (136-145) mmol/L Potassium 4.0 (3.5-5.1) mmol/L Chloride 109 H (98-107) mmol/L Carbon Dioxide 26 (21-32) mmol/L Anion Gap 4 (3-11) BUN 20 (6-23) mg/dl Creatinine 0.85 (0.6-1.2) mg/dl Est Cr Clr Drug Dosing 61.1 ml/min Est GFR ( Amer) 82.2 ml/min Est GFR (Non-Af Amer) 70.9 ml/min BUN/Creatinine Ratio 23.5 H (10-20) Glucose 118 H (70-99(Fasting)) mg/dl Calcium 9.0 (8.5-10.1) mg/dl Total Bilirubin 1.1 H D (0.2-1.0) mg/dl AST 13 (13-39) U/L ALT 16 (7-52) U/L Alkaline Phosphatase 54 (34-104) U/L Total Protein 6.5 (6.0-8.3) gm/dl Albumin 3.6 (3.4-5.0) gm/dl Globulin 2.9 (2.5-4.0) gm/dl Albumin/Globulin Ratio 1.2 (0.9-2) Procalcitonin 0.05 (0-0.5) ng/ml Diagnostic Findings Abdomen/Pelvis CT 05/24/22 16:30 CT abd pelvis IV con only CLINICAL HISTORY: persistent fever, hx B-cell lymphoma. ?splenic les TECHNIQUE: Helical axial images of the abdomen and pelvis were obtained and displayed. Automated dose lowering techniques and/or adjustment according to patient size were utilized for this exam. This exam was performed with intravenous contrast. COMPARISON: Comparison is made to CT abdomen pelvis 10/03/2021 FINDINGS: Lower chest: For findings above the diaphragm, please see CT chest performed same day. Liver: Hepatic steatosis is noted. Gallbladder and biliary tree: Layering radiodense material is seen in the dependent portion of the likely representing sludge. No intra- or extrahepatic biliary ductal dilation. Pancreas: Unremarkable, no focal lesions. Spleen: Calcifications are noted in the spleen compatible with prior granulomatous disease. Adrenals: Unremarkable. Kidneys and ureters: Unremarkable. Bladder: Unremarkable. Reproductive organs: Unremarkable. Bowel: Patient is status post rectal resection. Numerous diverticula are seen without evidence of diverticulitis. A hiatal hernia is seen. Lymph nodes Retroperitoneal: Unremarkable. Pelvic: Unremarkable. Mesenteric: Unremarkable. Peritoneum: Normal. Vessels: Unremarkable. Abdominal wall: Unremarkable. Bones: Left hip total arthroplasty is seen. IMPRESSION: 1. No evidence of lymphadenopathy in this patient with history of B-cell lymphoma. No acute abnormalities are seen. No splenic lesion. 2. Hepatic steatosis. ACT 112: Negative or not required by law. Electronically signed by: Jose Tom M.D. 05/25/2022 3:[address] 05/25/22 13:57 CT SCAN OF THE CHEST WITH IV CONTRAST CLINICAL HISTORY: Fever. Lymphoma. COMPARISON STUDY: Chest CT scans dated 05/02/2022 and 10/26/2018. TECHNIQUE: Following the IV administration of 87 cc of Optiray 350, CT scan of the thorax was performed from the thoracic inlet to the upper abdomen. Images are reviewed in the axial, sagittal, and coronal planes. IV contrast was administered without complication. A dose lowering technique was utilized adhering to the principles of ALARA. CT DOSE: 667.33 mGy.cm FINDINGS: Thyroid: Imaged portions of the thyroid gland are normal in size and attenuation. Thoracic aorta: There is moderate atherosclerotic calcification of the thoracic aorta, which is normal in caliber and demonstrates standard 3-vessel arch anatomy. No dissection is seen. Pulmonary vasculature: The pulmonary trunk is normal in caliber. There are no filling defects identified in the central pulmonary vessels to indicate pulmonary embolus. Note that this examination was not protocoled for evaluation of the pulmonary arteries. Heart: A left subclavian central venous infusion port is in place. The heart is mildly enlarged noting trace pericardial effusion. Lungs and pleural spaces: There is no airspace consolidation or pleural effusion. Calcified granulomas are incidentally noted. The trachea and central airways are clear. Mediastinum: There are calcified mediastinal nodes. No mediastinal lymphadenopathy is seen. Sheree: There are calcified right hilar nodes. No hilar adenopathy is identified. Axillae: There is no axillary lymphadenopathy. Upper abdomen: The liver appears steatotic. The spleen is normal in size, measuring 9.4 cm in length. A small hiatal hernia is noted. Skeletal structures: The skeletal structures are osteopenic. No lytic or blastic bony lesions are seen. Degenerative change and mild hyperkyphosis is noted in the thoracic spine. IMPRESSION: 1. The lungs are clear. 2. No thoracic lymphadenopathy is identified. 3. Cardiomegaly. 4. Hepatic steatosis. 5. Additional findings as above. ACT 112: Negative or not required by law. Electronically signed by: Irvin Martinez M.D. 05/25/2022 3:[address] 05/26/22 12:04 CT SCAN OF THE LEFT HIP WITHOUT IV CONTRAST CLINICAL HISTORY: Fever. Hip replacement. COMPARISON STUDY: Pelvic CT dated 05/25/2022. TECHNIQUE: CT scan of the left hip is performed from the bony pelvis to the proximal femur. Images are reviewed in the axial, sagittal, and coronal planes. IV contrast was not administered for this examination. A dose lowering technique was utilized adhering to the principles of ALARA. The examination is degraded by streak artifact from a left hip arthroplasty. FINDINGS: The skeletal structures are osteopenic. A bipolar left hip arthroplasty is in place. No periprosthetic lucency is identified. No acute fracture is seen. No bony erosion or periostitis is identified. There is no CT evidence of hip joint effusion. The overlying soft tissues are normal in appearance. There is no left pelvic sidewall or inguinal lymphadenopathy. The regional musculature is normal in appearance. There is no soft tissue gas. Excreted IV contrast is noted within the decompressed bladder. IMPRESSION: 1. No acute bony or soft tissue abnormality is identified. 2. A left hip arthroplasty is in place. ACT 112: Negative or not required by law. Electronically signed by: Irvin Martinez M.D. 05/26/2022 12:52 PM PG Care Time/CCT Total # of Minutes Spent Total Time Spent with Patient: Total time spent is greater than 50% in coordination of care (as documented) at patient's floor/unit and/or counseling patient: Coding Level of Care Code 36705 SUB INP/OBS CARE 3/50MIN Diagnoses Fever R50.9 MDS (myelodysplastic syndrome) D46.9 Lymphoma C85.90 History of Clostridioides difficile infection Z86.19 Pancytopenia D61.818 Nausea and vomiting R11.2
[2022-05-26] MEDS: RASPBERRY SYRUP 5 ML UDP PO SCH ×2 (09:10→22:16)
[2022-05-26] MEDS: VANCOMYCIN HCL 125 MG/2.5ML SOLN PO SCH ×2 (09:10→22:16)
[2022-05-26 09:43] LABS: Albumin Globulin Ratio 1.2 (0.9-2); Albumin Level 3.5 gm/dl (3.4-5.0); BUN Creatinine Ratio 23.5 (10-20); Bilirubin,Total 0.9 mg/dl (0.2-1.0); Calcium 8.8 mg/dl (8.5-10.1); Creatinine Clr Calc Pharmacy 64.4 ml/min; Est GFR (African American) 87.1 ml/min; Est GFR (Non-African American) 75.2 ml/min; Globulin 2.9 gm/dl (2.5-4.0); Potassium 3.7 mmol/L (3.5-5.1); Total Protein 6.4 gm/dl (6.0-8.3)
[2022-05-26 09:49] LABS: Hemoglobin 7.9 g/dl (12.0-16.0); Mean Corpuscular Hemoglobin 29.7 pg (25.0-34.0); Mean Corpuscular Hgb Conc 34.3 g/dL (32.0-36.0); Mean Corpuscular Volume 86.5 fL (80.0-100.0); Nucleated RBC # (auto) 0.03 K/uL (0-0.12); Platelet Count 14 K/uL (130-400); RDW Coefficient of Variation 14.4 % (11.5-14.5); RDW Standard Deviation 44.3 fL (36.4-46.3); Red Blood Count 2.66 M/uL (4.20-5.40); White Blood Count 3.06 K/ul (4.8-10.8)
[2022-05-26 10:12] LABS: Basophils # (auto) 0.07 K/uL (0-0.2); Basophils % (auto) 2.3 %; Eosinophils # (auto) 0.04 K/uL (0-0.50); Eosinophils % (auto) 1.3 %; Immature Granulocytes # (auto) 0.13 K/uL (0.01-0.20); Immature Granulocytes % (auto) 4.2 %; Lymphocytes # (auto) 1.16 K/uL (1.2-3.4); Lymphocytes % (auto) 37.9 %; Monocytes # (auto) 0.31 K/uL (0.11-0.59); Monocytes % (auto) 10.1 %; Neutrophils # (auto) 1.35 K/uL (1.40-6.50); Neutrophils % (auto) 44.2 %
--- NOTE | 2022-05-26 11:09 | XCELERA ---
[id number]
--- NOTE | 2022-05-26 12:54 | CT Scan Report ---
CT SCAN OF THE LEFT HIP WITHOUT IV CONTRAST CLINICAL HISTORY: Fever. Hip replacement. COMPARISON STUDY: Pelvic CT dated 05/25/2022. TECHNIQUE: CT scan of the left hip is performed from the bony pelvis to the proximal femur. Images ar e reviewed in the axial, sagittal, and coronal planes. IV contrast was not administered for this exam ination. A dose lowering technique was utilized adhering to the principles of ALARA. The examination is degraded by streak artifact from a left hip arthroplasty. FINDINGS: The skeletal structures are osteopenic. A bipolar left hip arthroplasty is in place. No per iprosthetic lucency is identified. No acute fracture is seen. No bony erosion or periostitis is ident ified. There is no CT evidence of hip joint effusion. The overlying soft tissues are normal in appear ance. There is no left pelvic sidewall or inguinal lymphadenopathy. The regional musculature is carol l in appearance. There is no soft tissue gas. Excreted IV contrast is noted within the decompressed b ladder. IMPRESSION: 1. No acute bony or soft tissue abnormality is identified. 2. A left hip arthroplasty is in place. ACT 112: Negative or not required by law. Electronically signed by: Irvin Martinez M.D. 05/26/2022 12:52 PM
[2022-05-26] MEDS ORDERED: ONDANSETRON INJ 2 MG/ML 2 ML VIAL IV PRN (14:27)
[2022-05-26] MEDS ORDERED: NSS + 20MEQ KCL 20 MEQ/1,000 ML BAG IV SCH (14:45)
[2022-05-26 14:51] LABS: Adenovirus F 40/41 PCR Not Detected (NotDetected); Astrovirus PCR Not Detected (NotDetected); Campylobacter PCR Not Detected (NotDetected); Cryptosporidium PCR Not Detected (NotDetected); Cyclospora cayetanensis PCR Not Detected (NotDetected); Entamoeba histolytica PCR Not Detected (NotDetected); Enteroaggregative E.coli(EAEC) Not Detected (NotDetected); Enteropathogenic E.coli (EPEC) Not Detected (NotDetected); Enterotoxigenic E.coli (ETEC) Not Detected (NotDetected); Giardia lamblia PCR Not Detected (NotDetected); Norovirus GI/GII PCR Not Detected (NotDetected); Plesiomonas shigelloides PCR Not Detected (NotDetected); Rotavirus A PCR Not Detected (NotDetected); Salmonella PCR Not Detected (NotDetected); Sapovirus PCR Not Detected (NotDetected); Shiga-like Toxin E.coli (STEC) Not Detected (NotDetected); Shigella/Enteroinvasive E.coli Not Detected (NotDetected); Vibrio cholerae PCR Not Detected (NotDetected); Vibrio species PCR Not Detected (NotDetected); Yersinia enterocolitica PCR Not Detected (NotDetected)
[2022-05-26] MEDS: FAMOTIDINE 20 MG in SYRINGE 3 ML IV SCH (15:18)
--- NOTE | 2022-05-26 15:59 | Infectious Disease Progress Nt ---
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 Infectious Diseases consulted in setting of immunodeficiency and fevers. She has a h/o pre B ALL who had induction therapy completed in 01/2019 not completing last 3 cycles because of quality of life issues, continued on POMP maintenance through 09/2019. She is currently being considered for allogenic transplant vs immunity transplant. She has h/o recurrent uppers respiratory symptoms starting 02/2022 treated with Azithromycin then cefpodoxime. 03/25/[address] showed small nodular irregular airspace opacities with GGO halo favoring multifocal PNA. 04/23/22 she was prescribed Cefidinir but couldnt be filled and she received levofloxacin for 7 days. 05/[address] no evidence of sinusitis. Repeat CT chest showed resolved aeration of lungs with only minimal residual GGO of L lung. She was admitted to [facility] on 05/24 with 5 days of fevers to 101-102F occurring at night. She reports that since 5 days ago she has had continued night sweats and fevers responding to Tylenol/ibuprofen. She has not had any cough or sputum production. No abdominal pain, has been a little constipated with firm bowel movements. [place], has not noted any tick bites or rashes. Admission Vitals stable. Initial WBC 2.81 (neutrophils 1.05) Hgb 6.4 platelets 14, chemistry normal. UA clear except for trace blood. RVP negative. MRSA nares are negative. CXR showed cardiomegaly, lungs negative for active disease. 3/ Blood cultures are in lab. Review of prior cultures 3/2 Ucx grew lactobacillus (10,000 cfu/mL) 3/2 Blood cultures NG Patient placed on Cefepime, Vancomycin, Doxycycline and Vanco po ppx. CT C/A/P negative for infectious etiology 2DE no obvious vegetation or valvular lesion L Hip CT negative Line: L subclavian port Hardware: L ALEXIS Discussion: Patient with 2 weeks of fevers without clear source, in setting of pancytopenia. She is not neutropenic today. CXR negative and UA is clear. She has a L chest port. Blood cultures are in lab but no growth thus far. Source not clear at this time but do not suspect Urinary source.=Lyme test negative, therefore will dc Doxy given her emesis. Imaging of Chest/abd/pelvis negative. cefepime for now. Agree with U/S liver, and EBV/CMV testing underweigh Heme/Onc evaluation is pending (2) Lymphoma: (3) Acute URI of multiple sites: Plan -C/W Cefepime -DC doxycycline -f/u on Blood cultures -C/w Vanco 125 po bid ppx for Cdiff -RUQ U/S CMV, EBV testing -Heme/Onc evaluation Thank you, ID will follow Karyna Ramirez MD Infectious Diseases [facility] Admission and Anticipated Discharge Date Admission Date: May 24, 2022 Subjective Subsequent visit was provided via telemedicine using two-way real-time interactive telecommunication between the patient and the telemedicine provider. For the duration of the visit, the provider was performing the assessment from a different facility than the patient. This includesuse of bluetooth stethoscope forauscultationperformed by the telepresenter that the telemedicine provider can hear if described in the physical exam. Calender Machine Operator contact information: Please call [facility] . (Phone Number For Physician Use Only) After establishing a telemedicine visit, patient was: Patient was verified with two unique identifiers, Patient/authorized rep acknowledged consent and understanding and Gave permission to continue telehealth session Time Spent with Patient: Subsequent => 35 min 24 hours: Febrile o/n Emesis this am after taking doxycycline Physical Exam Physical Exam: NAD RUQ TTP but negative murphys Results & Data ([facility]) Vital Signs (Past 12 Hours) Vital Signs Temp Pulse Resp BP Pulse Ox O2 Del Method 05/26/22 07:56 36.4 C L 81 18 144/68 H 97 Room Air Laboratory Results Laboratory Results - last 48 hr 05/24/22 05/24/22 05/24/22 13:17 13:17 16:32 WBC RBC Hgb 5.5 L* Hct 16.6 L* MCV MCH MCHC RDW Std Deviation RDW Coeff of Garcia Plt Count 15 L* Immature Gran % (Auto) Neut % (Auto) Lymph % (Auto) Ross % (Auto) Eos % (Auto) Baso % (Auto) Neut # (Auto) Lymph # (Auto) Ross # (Auto) Eos # (Auto) Baso # (Auto) Immature Gran # (Auto) Absolute Nucleated RBC Nucleated RBC % (auto) ESR Sodium Potassium Chloride Carbon Dioxide Anion Gap BUN Creatinine Est Cr Clr Drug Dosing Est GFR ( Amer) Est GFR (Non-Af Amer) BUN/Creatinine Ratio Glucose Calcium Magnesium Total Bilirubin AST ALT Alkaline Phosphatase C-Reactive Protein 5.22 H Total Protein Albumin Globulin Albumin/Globulin Ratio Procalcitonin Urine Color Urine Appearance Urine pH Ur Specific Clio Urine Protein Urine Glucose (UA) Urine Ketones Urine Blood Urine Nitrite Urine Bilirubin Urine Urobilinogen Ur Leukocyte Esterase Urine WBC (Auto) Urine RBC (Auto) U Hyaline Cast (Auto) U Epithel Cells (Auto) Urine Bacteria (Auto) Nasal Screen MRSA (PCR) Stl C. cayetanensis PCR Stool Rotavirus A PCR Stl Adenov F 40/41 PCR Stool Astrovirus (PCR) Stool Campylobacter PCR Stl C. diff Tox B Gene Stool Cryptosporidium PCR Stl E.coli Shiga Tox PCR Stl Enterotoxigenic E PCR Stool EPEC (PCR) Stool EAEC (PCR) Stl E. histolytica PCR Stool Giardia Lamblia PCR Stool Salmonella PCR Stool Sapovirus (PCR) Stl P. shigelloides PCR Stl Shigella/EIEC PCR St Y.enterocolitica PCR Stool Vibrio (PCR) Stl Vibrio cholerae PCR Stl Norovirus GI/GII PCR Adenovirus (PCR) Anaplasma Smear See Comment B. pertussis DNA (PCR) B.parapertussis DNA PCR Lyme Disease IgG Ab Lyme Disease IgM Ab C. pneumoniae DNA (PCR) Coronavirus OC43 (PCR) Coronavirus HKU1 (PCR) Coronavirus 229E (PCR) SARS-CoV-2 (PCR) Coronavirus NL63 (PCR) Human Metapneumovir PCR Influenza Type A (PCR) Influenza Type B (PCR) M. pneumoniae (PCR) Parainfluenza 1 (PCR) Parainfluenza 2 (PCR) Parainfluenza 3 (PCR) Parainfluenza 4 (PCR) RSV (PCR) Entero/Rhino (PCR) Blood Type O Positive Antibody Screen NEGATIVE Crossmatch See Detail 05/24/22 05/24/22 05/24/22 16:32 22:00 23:18 WBC RBC Hgb 6.9 L* Hct 20.5 L* MCV MCH MCHC RDW Std Deviation RDW Coeff of Garcia Plt Count Immature Gran % (Auto) Neut % (Auto) Lymph % (Auto) Ross % (Auto) Eos % (Auto) Baso % (Auto) Neut # (Auto) Lymph # (Auto) Ross # (Auto) Eos # (Auto) Baso # (Auto) Immature Gran # (Auto) Absolute Nucleated RBC Nucleated RBC % (auto) ESR Sodium Potassium Chloride Carbon Dioxide Anion Gap BUN Creatinine Est Cr Clr Drug Dosing Est GFR ( Amer) Est GFR (Non-Af Amer) BUN/Creatinine Ratio Glucose Calcium Magnesium Total Bilirubin AST ALT Alkaline Phosphatase C-Reactive Protein Total Protein Albumin Globulin Albumin/Globulin Ratio Procalcitonin Urine Color Yellow Urine Appearance Clear Urine pH 6.0 Ur Specific Clio 1.006 Urine Protein Negative Urine Glucose (UA) Negative Urine Ketones Negative Urine Blood Trace H Urine Nitrite Negative Urine Bilirubin Negative Urine Urobilinogen Negative Ur Leukocyte Esterase Negative Urine WBC (Auto) 0 Urine RBC (Auto) 0-4 U Hyaline Cast (Auto) 0 U Epithel Cells (Auto) 5-10 H Urine Bacteria (Auto) Negative Nasal Screen MRSA (PCR) Stl C. cayetanensis PCR Stool Rotavirus A PCR Stl Adenov F 40/41 PCR Stool Astrovirus (PCR) Stool Campylobacter PCR Stl C. diff Tox B Gene Stool Cryptosporidium PCR Stl E.coli Shiga Tox PCR Stl Enterotoxigenic E PCR Stool EPEC (PCR) Stool EAEC (PCR) Stl E. histolytica PCR Stool Giardia Lamblia PCR Stool Salmonella PCR Stool Sapovirus (PCR) Stl P. shigelloides PCR Stl Shigella/EIEC PCR St Y.enterocolitica PCR Stool Vibrio (PCR) Stl Vibrio cholerae PCR Stl Norovirus GI/GII PCR Adenovirus (PCR) Anaplasma Smear B. pertussis DNA (PCR) B.parapertussis DNA PCR Lyme Disease IgG Ab Negative Lyme Disease IgM Ab Negative C. pneumoniae DNA (PCR) Coronavirus OC43 (PCR) Coronavirus HKU1 (PCR) Coronavirus 229E (PCR) SARS-CoV-2 (PCR) Coronavirus NL63 (PCR) Human Metapneumovir PCR Influenza Type A (PCR) Influenza Type B (PCR) M. pneumoniae (PCR) Parainfluenza 1 (PCR) Parainfluenza 2 (PCR) Parainfluenza 3 (PCR) Parainfluenza 4 (PCR) RSV (PCR) Entero/Rhino (PCR) Blood Type Antibody Screen Crossmatch 05/24/22 05/24/22 05/25/22 Unknown Unknown 06:51 WBC 4.40 L RBC 2.73 L Hgb 8.3 L Hct 23.6 L MCV 86.4 MCH 30.4 MCHC 35.2 RDW Std Deviation 42.4 RDW Coeff of Garcia 13.6 Plt Count 14 L* Immature Gran % (Auto) 3.4 Neut % (Auto) 66.2 Lymph % (Auto) 20.9 Ross % (Auto) 7.7 Eos % (Auto) 0.2 Baso % (Auto) 1.6 Neut # (Auto) 2.91 Lymph # (Auto) 0.92 L Ross # (Auto) 0.34 Eos # (Auto) 0.01 Baso # (Auto) 0.07 Immature Gran # (Auto) 0.15 Absolute Nucleated RBC Nucleated RBC % (auto) ESR Sodium Potassium Chloride Carbon Dioxide Anion Gap BUN Creatinine Est Cr Clr Drug Dosing Est GFR ( Amer) Est GFR (Non-Af Amer) BUN/Creatinine Ratio Glucose Calcium Magnesium Total Bilirubin AST ALT Alkaline Phosphatase C-Reactive Protein Total Protein Albumin Globulin Albumin/Globulin Ratio Procalcitonin Urine Color Urine Appearance Urine pH Ur Specific Clio Urine Protein Urine Glucose (UA) Urine Ketones Urine Blood Urine Nitrite Urine Bilirubin Urine Urobilinogen Ur Leukocyte Esterase Urine WBC (Auto) Urine RBC (Auto) U Hyaline Cast (Auto) U Epithel Cells (Auto) Urine Bacteria (Auto) Nasal Screen MRSA (PCR) Negative Stl C. cayetanensis PCR Stool Rotavirus A PCR Stl Adenov F 40/41 PCR Stool Astrovirus (PCR) Stool Campylobacter PCR Stl C. diff Tox B Gene Stool Cryptosporidium PCR Stl E.coli Shiga Tox PCR Stl Enterotoxigenic E PCR Stool EPEC (PCR) Stool EAEC (PCR) Stl E. histolytica PCR Stool Giardia Lamblia PCR Stool Salmonella PCR Stool Sapovirus (PCR) Stl P. shigelloides PCR Stl Shigella/EIEC PCR St Y.enterocolitica PCR Stool Vibrio (PCR) Stl Vibrio cholerae PCR Stl Norovirus GI/GII PCR Adenovirus (PCR) Not Detected Anaplasma Smear B. pertussis DNA (PCR) Not Detected B.parapertussis DNA PCR Not Detected Lyme Disease IgG Ab Lyme Disease IgM Ab C. pneumoniae DNA (PCR) Not Detected Coronavirus OC43 (PCR) Not Detected Coronavirus HKU1 (PCR) Not Detected Coronavirus 229E (PCR) Not Detected SARS-CoV-2 (PCR) Not Detected Coronavirus NL63 (PCR) Not Detected Human Metapneumovir PCR Not Detected Influenza Type A (PCR) Not Detected Influenza Type B (PCR) Not Detected M. pneumoniae (PCR) Not Detected Parainfluenza 1 (PCR) Not Detected Parainfluenza 2 (PCR) Not Detected Parainfluenza 3 (PCR) Not Detected Parainfluenza 4 (PCR) Not Detected RSV (PCR) Not Detected Entero/Rhino (PCR) Not Detected Blood Type Antibody Screen Crossmatch 05/25/22 05/25/22 05/26/22 06:51 14:52 09:07 WBC RBC Hgb Hct MCV MCH MCHC RDW Std Deviation RDW Coeff of Garcia Plt Count Immature Gran % (Auto) Neut % (Auto) Lymph % (Auto) Ross % (Auto) Eos % (Auto) Baso % (Auto) Neut # (Auto) Lymph # (Auto) Ross # (Auto) Eos # (Auto) Baso # (Auto) Immature Gran # (Auto) Absolute Nucleated RBC Nucleated RBC % (auto) ESR Sodium 139 139 Potassium 4.0 3.7 Chloride 109 H 108 H Carbon Dioxide 26 26 Anion Gap 4 5 BUN 20 19 Creatinine 0.85 0.81 Est Cr Clr Drug Dosing 61.1 64.4 Est GFR ( Amer) 82.2 87.1 Est GFR (Non-Af Amer) 70.9 75.2 BUN/Creatinine Ratio 23.5 H 23.5 H Glucose 118 H 98 Calcium 9.0 8.8 Magnesium 2.0 Total Bilirubin 1.1 H D 0.9 AST 13 11 L ALT 16 13 Alkaline Phosphatase 54 47 C-Reactive Protein Total Protein 6.5 6.4 Albumin 3.6 3.5 Globulin 2.9 2.9 Albumin/Globulin Ratio 1.2 1.2 Procalcitonin 0.05 Urine Color Urine Appearance Urine pH Ur Specific Clio Urine Protein Urine Glucose (UA) Urine Ketones Urine Blood Urine Nitrite Urine Bilirubin Urine Urobilinogen Ur Leukocyte Esterase Urine WBC (Auto) Urine RBC (Auto) U Hyaline Cast (Auto) U Epithel Cells (Auto) Urine Bacteria (Auto) Nasal Screen MRSA (PCR) Stl C. cayetanensis PCR Stool Rotavirus A PCR Stl Adenov F 40 PCR Stool Astrovirus (PCR) Stool Campylobacter PCR Stl C. diff Tox B Gene Stool Cryptosporidium PCR Stl E.coli Shiga Tox PCR Stl Enterotoxigenic E PCR Stool EPEC (PCR) Stool EAEC (PCR) Stl E. histolytica PCR Stool Giardia Lamblia PCR Stool Salmonella PCR Stool Sapovirus (PCR) Stl P. shigelloides PCR Stl Shigella/EIEC PCR St Y.enterocolitica PCR Stool Vibrio (PCR) Stl Vibrio cholerae PCR Stl Norovirus GI/GII PCR Adenovirus (PCR) Anaplasma Smear B. pertussis DNA (PCR) B.parapertussis DNA PCR Lyme Disease IgG Ab Lyme Disease IgM Ab C. pneumoniae DNA (PCR) Coronavirus OC43 (PCR) Coronavirus HKU1 (PCR) Coronavirus 229E (PCR) SARS-CoV-2 (PCR) Coronavirus NL63 (PCR) Human Metapneumovir PCR Influenza Type A (PCR) Influenza Type B (PCR) M. pneumoniae (PCR) Parainfluenza 1 (PCR) Parainfluenza 2 (PCR) Parainfluenza 3 (PCR) Parainfluenza 4 (PCR) RSV (PCR) Entero/Rhino (PCR) Blood Type Antibody Screen Crossmatch 05/26/22 05/26/22 05/26/22 09:07 09:07 09:07 WBC 3.06 L RBC 2.66 L Hgb 7.9 L Hct 23.0 L MCV 86.5 MCH 29.7 MCHC 34.3 RDW Std Deviation 44.3 RDW Coeff of Garcia 14.4 Plt Count 14 L* Immature Gran % (Auto) 4.2 Neut % (Auto) 44.2 Lymph % (Auto) 37.9 Ross % (Auto) 10.1 Eos % (Auto) 1.3 Baso % (Auto) 2.3 Neut # (Auto) 1.35 L Lymph # (Auto) 1.16 L Ross # (Auto) 0.31 Eos # (Auto) 0.04 Baso # (Auto) 0.07 Immature Gran # (Auto) 0.13 Absolute Nucleated RBC 0.03 Nucleated RBC % (auto) 1.0 ESR 32 H Sodium Potassium Chloride Carbon Dioxide Anion Gap BUN Creatinine Est Cr Clr Drug Dosing Est GFR ( Amer) Est GFR (Non-Af Amer) BUN/Creatinine Ratio Glucose Calcium Magnesium Total Bilirubin AST ALT Alkaline Phosphatase C-Reactive Protein 9.61 H Total Protein Albumin Globulin Albumin/Globulin Ratio Procalcitonin Urine Color Urine Appearance Urine pH Ur Specific Clio Urine Protein Urine Glucose (UA) Urine Ketones Urine Blood Urine Nitrite Urine Bilirubin Urine Urobilinogen Ur Leukocyte Esterase Urine WBC (Auto) Urine RBC (Auto) U Hyaline Cast (Auto) U Epithel Cells (Auto) Urine Bacteria (Auto) Nasal Screen MRSA (PCR) Stl C. cayetanensis PCR Stool Rotavirus A PCR Stl Adenov F 40/ PCR Stool Astrovirus (PCR) Stool Campylobacter PCR Stl C. diff Tox B Gene Stool Cryptosporidium PCR Stl E.coli Shiga Tox PCR Stl Enterotoxigenic E PCR Stool EPEC (PCR) Stool EAEC (PCR) Stl E. histolytica PCR Stool Giardia Lamblia PCR Stool Salmonella PCR Stool Sapovirus (PCR) Stl P. shigelloides PCR Stl Shigella/EIEC PCR St Y.enterocolitica PCR Stool Vibrio (PCR) Stl Vibrio cholerae PCR Stl Norovirus GI/GII PCR Adenovirus (PCR) Anaplasma Smear B. pertussis DNA (PCR) B.parapertussis DNA PCR Lyme Disease IgG Ab Lyme Disease IgM Ab C. pneumoniae DNA (PCR) Coronavirus OC43 (PCR) Coronavirus HKU1 (PCR) Coronavirus 229E (PCR) SARS-CoV-2 (PCR) Coronavirus NL63 (PCR) Human Metapneumovir PCR Influenza Type A (PCR) Influenza Type B (PCR) M. pneumoniae (PCR) Parainfluenza 1 (PCR) Parainfluenza 2 (PCR) Parainfluenza 3 (PCR) Parainfluenza 4 (PCR) RSV (PCR) Entero/Rhino (PCR) Blood Type Antibody Screen Crossmatch 05/26/22 05/26/22 09:49 12:30 WBC RBC Hgb Hct MCV MCH MCHC RDW Std Deviation RDW Coeff of Garcia Plt Count Immature Gran % (Auto) Neut % (Auto) Lymph % (Auto) Ross % (Auto) Eos % (Auto) Baso % (Auto) Neut # (Auto) Lymph # (Auto) Ross # (Auto) Eos # (Auto) Baso # (Auto) Immature Gran # (Auto) Absolute Nucleated RBC Nucleated RBC % (auto) ESR Sodium Potassium Chloride Carbon Dioxide Anion Gap BUN Creatinine Est Cr Clr Drug Dosing Est GFR ( Amer) Est GFR (Non-Af Amer) BUN/Creatinine Ratio Glucose Calcium Magnesium Total Bilirubin AST ALT Alkaline Phosphatase C-Reactive Protein Total Protein Albumin Globulin Albumin/Globulin Ratio Procalcitonin Urine Color Urine Appearance Urine pH Ur Specific Clio Urine Protein Urine Glucose (UA) Urine Ketones Urine Blood Urine Nitrite Urine Bilirubin Urine Urobilinogen Ur Leukocyte Esterase Urine WBC (Auto) Urine RBC (Auto) U Hyaline Cast (Auto) U Epithel Cells (Auto) Urine Bacteria (Auto) Nasal Screen MRSA (PCR) Stl C. cayetanensis PCR Not Detected Stool Rotavirus A PCR Not Detected Stl Adenov F 40/41 PCR Not Detected Stool Astrovirus (PCR) Not Detected Stool Campylobacter PCR Not Detected Stl C. diff Tox B Gene Negative Cdiff Gene Stool Cryptosporidium PCR Not Detected Stl E.coli Shiga Tox PCR Not Detected Stl Enterotoxigenic E PCR Not Detected Stool EPEC (PCR) Not Detected Stool EAEC (PCR) Not Detected Stl E. histolytica PCR Not Detected Stool Giardia Lamblia PCR Not Detected Stool Salmonella PCR Not Detected Stool Sapovirus (PCR) Not Detected Stl P. shigelloides PCR Not Detected Stl Shigella/EIEC PCR Not Detected St Y.enterocolitica PCR Not Detected Stool Vibrio (PCR) Not Detected Stl Vibrio cholerae PCR Not Detected Stl Norovirus GI/GII PCR Not Detected Adenovirus (PCR) Anaplasma Smear B. pertussis DNA (PCR) B.parapertussis DNA PCR Lyme Disease IgG Ab Lyme Disease IgM Ab C. pneumoniae DNA (PCR) Coronavirus OC43 (PCR) Coronavirus HKU1 (PCR) Coronavirus 229E (PCR) SARS-CoV-2 (PCR) Coronavirus NL63 (PCR) Human Metapneumovir PCR Influenza Type A (PCR) Influenza Type B (PCR) M. pneumoniae (PCR) Parainfluenza 1 (PCR) Parainfluenza 2 (PCR) Parainfluenza 3 (PCR) Parainfluenza 4 (PCR) RSV (PCR) Entero/Rhino (PCR) Blood Type Antibody Screen Crossmatch Microbiology 05/24/22 16:32 Blood Aerobic Blood Culture - Preliminary No growth in Aerobic bottle after 24 hours. 05/24/22 16:32 Blood Anaerobic Blood Culture - Preliminary No growth in Anaerobic bottle after 24 hours. 05/24/22 16:37 Blood Aerobic Blood Culture - Preliminary No growth in Aerobic bottle after 24 hours. 05/24/22 16:37 Blood Anaerobic Blood Culture - Preliminary No growth in Anaerobic bottle after 24 hours.
--- NOTE | 2022-05-27 07:57 | Hospitalist Progress Note ---
Date of Service May 27, 2022 Assessment & Plan (1) Fever: Plan: Viral versus bacterial sepsis in the setting of an immunocompromised patient Fever of unknown origin (of note, patient on multiple rounds of abx over past 6 weeks, ~ 4 different courses, negative cultures difficult to interpret currently however no obvious infectious etiology at this time) ABx on admit : cefepime, Doxy IV and PO vanco given hx cdiff w/ recurrance Lyme negative, anaplasmosis smear negative, PCR pending but ID d/c Doxy given emesis and testing Biofire negative Stool PCR/cdiff NEGATIVE Procal 0.05 Blood cultures remain NGTD Fever 39C on @16:48, nothing further CT Chest/Abd/Pelvis without significant abn CT hip done given prior replacement for completeness, negative Prior GB sludge, and obtained RUQ US for further eval -- sludge but no pericholecystic fluid noted (did discuss w/ patient could have HIDA outpt once off abx if ongoing issues after plan as outlined) Heme/onc, ID consulted -- discussed and could be from underlying malignancy vs viral process -- also discussed w/ Dr Vidal and neg cultures/prior abx use and caution. Did discuss could call to [facility] to see about tx for treatment/eval however they may given push back. Patient does have appt on this upcoming week and if remains stable could complete the 5 days Cefepime per ID and have her f/u [facility] this upcoming week. Hepatitis panel negative, CMV nonreactive, EBV suggestive of prior infection Fungitel pending Discussed w/ ID and can probably stop abx tomorrow and watch off abx for ongoing fevers messaged ID this evening given prior scattered calcified granulomata throughout R lung on prior CT chest in Mar/Apr -- also going to ask pulm to review those prior imaging if available today Continued inpatient stay (2) MDS (myelodysplastic syndrome): Plan: MDS Hgb <7 on admit 2u PRBC Repeat hgb 8.3 --> 7.9 and continue to monitor Transfuse for hgb <7.5, platelets w/ bleeding <20k, <10 otherwise > Of note, requires irradiated blood products Heme/onc consulted -- messaged about blown vessel to her LEFT eye morning 05/26/need for platelets -- to hold off for now, plt stable on repeat at 13k Hgb actually improved from 7.9 to 8.2 on IVF yesterday while NPO awaiting RUQ US Monitor CBC in AM Posttreatment myelodysplastic syndrome Noted 05/2021 Bone marrow biopsy with multilineage dysplasia Following with [facility] for consideration of allogenic transplant from son versus imm unity transplant. 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 difficile while with biotics On empiric Vanco PO 125,mg BID Reporting BM x 5 in AM 05/25 -- checked stool biofire/cdiff testing -- NEGATIVE Also getting CTAP as above May require PO dificid if recurrence infection not resolved w/ PO vanco --> stool testing NEGATIVE stool PCR and can consider d/c but will continue while on IV abx inpatient less diarrhea/more formed bms (5) Pancytopenia: Plan: as above (6) Nausea and vomiting: Plan: morning 05/26 following doxycycline use doxy d/c by ID as possible cause added zofran prn, has not required start pepcid IVP daily while on abx , consideration for PPI if needed/ineffective (she declined that this morning, did have some reflux but thought from abx but discussed available if needed) RUQ US unrevealing, can consider HIDA outpt off abx for further eval EF (7) Subconjunctival hemorrhage: Plan: suspected 2nd to nausea/vomiting after PO Doxy use 05/26, stable and plt stable 14-->13k, no further bleeding No loss of vision/change in vision however is slightly painful ice/heat declined this morning but requested later and RN to provide Continue to monitor DVT prophylaxis: Pharmacal prophylaxis contraindicated due to thrombocytopenia and anemia Plan continued inpatient stay on cefepime with possible stop tomorrow and monitor off abx per discussion w/ ID this evening monitor cultures/cbc/plt count and for any further fevers Admission and Anticipated Discharge Date Admission Date: May 24, 2022 Supervising Physician Co-Signing Physician Notes The patient was not seen by me. The chart was reviewed. Case discussed with SHANTEL Alaniz. Agree with assessment and plan Subjective eval this morning, doing alright. having a bit of a headache but improved since she ate lunch. having some pain to her left eye from blown vessel, did state RN asked about heat/ice but she declined but would like some ice-- asked RN to provide. Denies vision loss/change in vision. Plt stable, hgb stable despite IVF given yesterday. No further fevers last evening, she is wondering if maybe because she didn't eat supper until later/bagged lunch. Discussed asked general surgery for review of US and they didn't not feel anything to intervene if not having ongoing n/v, leukocytosis and rec outpatient imaging. Diffficult cultures continue negative but in setting of multiple rounds of abx recently. Notes she has appt w/ [facility] this upcoming surgery. Hep panel/EBV/CMV pending and funtigell but also discussed if any worsening/unstable will attempt to reach out to [facility] but there may be resistance to transfer without known cause and may be better served following up this upcoming week. Planning to complete 5 days w/ Cefepime. Questions/concerns addressed at this time. Physical Exam Physical Exam: General: WD/WN female , general pallor, getting washed up in the bathroom, just finished lunch, NAD HEENT: Atraumatic, normocephalic, mm improved dry, trachea midline, no deviation LEFT eye w/ blown vessel medial/inferiorly, no vision changes, pupil equal/reactive Chest: port to LEFT chest, covered. dressing c/d/i, no evidence for infection Resp: CTAB, no w/c, on room air CV: RRR, no significant m/r/g, no pitting edema, pulses palpable, calves nontender GI: +BS, soft/NT, no rebound/guarding : voiding spontaneously MSK/Neuro: no focal deficit Psych: AOx3, pleasant and cooperative Results & Data Results & Data ([facility]) Vital Signs (Past 12 Hours) Vital Signs Temp Pulse Pulse Resp BP BP Pulse Ox 05/27/22 07:53 37.2 C 82 16 123/75 97 05/27/22 07:23 83 05/27/22 04:00 36.8 C 76 20 113/63 96 05/26/22 23:43 36.8 C 90 20 121/64 96 05/26/22 22:00 85 05/26/22 20:01 36.8 C 83 18 126/68 96 O2 Del Method 05/27/22 07:53 Room Air 05/27/22 07:23 05/27/22 04:00 Room Air 05/26/22 23:43 Room Air 05/26/22 22:00 05/26/22 20:01 Room Air Laboratory Results 05/27/22 05/27/22 05/26/22 Range/Units 07:14 07:14 09:49 WBC 3.02 L (4.8-10.8) K/ul RBC 2.70 L (4.20-5.40) M/uL Hgb 8.2 L (12.0-16.0) g/dl Hct 23.5 L (37.0-47.0) % MCV 87.0 (80.0-100.0) fL MCH 30.4 (25.0-34.0) pg MCHC 34.9 (32.0-36.0) g/dL RDW Std Deviation 45.0 (36.4-46.3) fL RDW Coeff of Garcia 14.5 (11.5-14.5) % Plt Count 13 L* (130-400) K/uL Immature Gran % (Auto) 2.6 % Neut % (Auto) 39.1 % Lymph % (Auto) 45.7 % Harvey % (Auto) 8.3 % Eos % (Auto) 1.3 % Baso % (Auto) 3.0 % Neut # (Auto) 1.18 L (1.40-6.50) K/uL Lymph # (Auto) 1.38 (1.2-3.4) K/uL Harvey # (Auto) 0.25 (0.11-0.59) K/uL Eos # (Auto) 0.04 (0-0.50) K/uL Baso # (Auto) 0.09 (0-0.2) K/uL Immature Gran # (Auto) 0.08 (0.01-0.20) K/uL Sodium 139 (136-145) mmol/L Potassium 4.1 (3.5-5.1) mmol/L Chloride 107 (98-107) mmol/L Carbon Dioxide 28 (21-32) mmol/L Anion Gap 4 (3-11) BUN 18 (6-23) mg/dl Creatinine 0.77 (0.6-1.2) mg/dl Est Cr Clr Drug Dosing 66.8 ml/min Est GFR ( Amer) 92.6 ml/min Est GFR (Non-Af Amer) 79.9 ml/min BUN/Creatinine Ratio 23.4 H (10-20) Glucose 85 (70-99(Fasting)) mg/dl Calcium 8.8 (8.5-10.1) mg/dl Magnesium 2.0 (1.7-2.4) mg/dl Total Bilirubin 0.8 (0.2-1.0) mg/dl AST 10 L (13-39) U/L ALT 11 (7-52) U/L Alkaline Phosphatase 49 (34-104) U/L Total Protein 6.4 (6.0-8.3) gm/dl Albumin 3.6 (3.4-5.0) gm/dl Globulin 2.8 (2.5-4.0) gm/dl Albumin/Globulin Ratio 1.3 (0.9-2) Stl C. cayetanensis PCR Not Detected (NotDetected) Stool Rotavirus A PCR Not Detected (NotDetected) Stl Adenov F 40/41 PCR Not Detected (NotDetected) Stool Astrovirus (PCR) Not Detected (NotDetected) Stool Campylobacter PCR Not Detected (NotDetected) Stool Cryptosporidium PCR Not Detected (NotDetected) Stl E.coli Shiga Tox PCR Not Detected (NotDetected) Stl Enterotoxigenic E PCR Not Detected (NotDetected) Stool EPEC (PCR) Not Detected (NotDetected) Stool EAEC (PCR) Not Detected (NotDetected) Stl E. histolytica PCR Not Detected (NotDetected) Stool Giardia Lamblia PCR Not Detected (NotDetected) Stool Salmonella PCR Not Detected (NotDetected) Stool Sapovirus (PCR) Not Detected (NotDetected) Stl P. shigelloides PCR Not Detected (NotDetected) Stl Shigella/EIEC PCR Not Detected (NotDetected) St Y.enterocolitica PCR Not Detected (NotDetected) Stool Vibrio (PCR) Not Detected (NotDetected) Stl Vibrio cholerae PCR Not Detected (NotDetected) Stl Norovirus GI/GII PCR Not Detected (NotDetected) CMV IgM Ab AU/mL CMV IgG Ab/TORCH U/mL EBV Capsid Ag IgG Ab U/mL EBV Capsid Ag IgM Ab U/mL EBV Nuclear Antigen Ab U/mL EBV Antibody Interp Hepatitis A IgM Ab (NON-REACTIVE) Hep Bs Antigen (NON-REACTIVE) Hep Bs Ag Confirmation Hep B Core IgM Ab (NON-REACTIVE) Hepatitis C Ab (EIA) (NON-REACTIVE) Hep C Ab Signal/Cutoff (<1.00) 05/26/22 05/26/22 Range/Units 09:07 09:07 WBC (4.8-10.8) K/ul RBC (4.20-5.40) M/uL Hgb (12.0-16.0) g/dl Hct (37.0-47.0) % MCV (80.0-100.0) fL MCH (25.0-34.0) pg MCHC (32.0-36.0) g/dL RDW Std Deviation (36.4-46.3) fL RDW Coeff of Garcia (11.5-14.5) % Plt Count (130-400) K/uL Immature Gran % (Auto) % Neut % (Auto) % Lymph % (Auto) % Harvey % (Auto) % Eos % (Auto) % Baso % (Auto) % Neut # (Auto) (1.40-6.50) K/uL Lymph # (Auto) (1.2-3.4) K/uL Harvey # (Auto) (0.11-0.59) K/uL Eos # (Auto) (0-0.50) K/uL Baso # (Auto) (0-0.2) K/uL Immature Gran # (Auto) (0.01-0.20) K/uL Sodium (136-145) mmol/L Potassium (3.5-5.1) mmol/L Chloride (98-107) mmol/L Carbon Dioxide (21-32) mmol/L Anion Gap (3-11) BUN (6-23) mg/dl Creatinine (0.6-1.2) mg/dl Est Cr Clr Drug Dosing ml/min Est GFR ( Amer) ml/min Est GFR (Non-Af Amer) ml/min BUN/Creatinine Ratio (10-20) Glucose (70-99(Fasting)) mg/dl Calcium (8.5-10.1) mg/dl Magnesium (1.7-2.4) mg/dl Total Bilirubin (0.2-1.0) mg/dl AST (13-39) U/L ALT (7-52) U/L Alkaline Phosphatase (34-104) U/L Total Protein (6.0-8.3) gm/dl Albumin (3.4-5.0) gm/dl Globulin (2.5-4.0) gm/dl Albumin/Globulin Ratio (0.9-2) Stl C. cayetanensis PCR (NotDetected) Stool Rotavirus A PCR (NotDetected) Stl Adenov F 40/41 PCR (NotDetected) Stool Astrovirus (PCR) (NotDetected) Stool Campylobacter PCR (NotDetected) Stool Cryptosporidium PCR (NotDetected) Stl E.coli Shiga Tox PCR (NotDetected) Stl Enterotoxigenic E PCR (NotDetected) Stool EPEC (PCR) (NotDetected) Stool EAEC (PCR) (NotDetected) Stl E. histolytica PCR (NotDetected) Stool Giardia Lamblia PCR (NotDetected) Stool Salmonella PCR (NotDetected) Stool Sapovirus (PCR) (NotDetected) Stl P. shigelloides PCR (NotDetected) Stl Shigella/EIEC PCR (NotDetected) St Y.enterocolitica PCR (NotDetected) Stool Vibrio (PCR) (NotDetected) Stl Vibrio cholerae PCR (NotDetected) Stl Norovirus GI/GII PCR (NotDetected) CMV IgM Ab <30.00 AU/mL CMV IgG Ab/TORCH <0.60 U/mL EBV Capsid Ag IgG Ab 376.00 H U/mL EBV Capsid Ag IgM Ab <36.00 U/mL EBV Nuclear Antigen Ab 30.50 H U/mL EBV Antibody Interp SEE NOTE Hepatitis A IgM Ab NON-REACTIVE (NON-REACTIVE) Hep Bs Antigen NON-REACTIVE (NON-REACTIVE) Hep Bs Ag Confirmation TNP Hep B Core IgM Ab NON-REACTIVE (NON-REACTIVE) Hepatitis C Ab (EIA) NON-REACTIVE (NON-REACTIVE) Hep C Ab Signal/Cutoff 0.02 (<1.00) Diagnostic Findings Liver Ultrasound 05/26/22 14:18 US liver CLINICAL HISTORY: GB sludge, fever, eval TECHNIQUE: Multiple real-time sonographic images of the right upper quadrant were obtained. Comparison: None available at the time of this dictation. FINDINGS: The liver is diffusely echogenic in appearance with poor ultrasound penetration, with normal contour, which is consistent with fatty infiltration. Focal fatty sparing seen about the gallbladder fossa. No intrahepatic ductal dilatation is seen. Low level internal echoes are identified layering dependently within the gallbladder, which is consistent with gallbladder sludge. The gallbladder wall is not thickened. There is no pericholecystic fluid present. A sonographic Covington's sign was not elicited by the front load trash truck driver. The common duct measures 0.4 cm in diameter at the level of the hepatic artery. The visualized portions of the pancreas appear normal. The right kidney shows normal echogenicity, cortical thickness and renal contour. The right kidney shows no evidence of hydronephrosis or mass. No ascites or free fluid is seen in Mello's pouch. IMPRESSION: Unremarkable right upper quadrant ultrasound. ACT 112: Negative or not required by law. Electronically signed by: Jose Tom M.D. 05/27/2022 9:01 AM PG Care Time/CCT Total # of Minutes Spent Total Time Spent with Patient: Total time spent is greater than 50% in coordination of care (as documented) at patient's floor/unit and/or counseling patient: Coding Level of Care Code 97170 SUB INP/OBS CARE 3/50MIN Diagnoses Fever R50.9 MDS (myelodysplastic syndrome) D46.9 Lymphoma C85.90 History of Clostridioides difficile infection Z86.19 Pancytopenia D61.818 Nausea and vomiting R11.2 Subconjunctival hemorrhage H11.30
[2022-05-27 08:33] LABS: Albumin Level 3.6 gm/dl (3.4-5.0); Bilirubin,Total 0.8 mg/dl (0.2-1.0); Calcium 8.8 mg/dl (8.5-10.1); Potassium 4.1 mmol/L (3.5-5.1)
[2022-05-27 08:39] LABS: Albumin Globulin Ratio 1.3 (0.9-2); BUN Creatinine Ratio 23.4 (10-20); Creatinine Clr Calc Pharmacy 66.8 ml/min; Est GFR (African American) 92.6 ml/min; Est GFR (Non-African American) 79.9 ml/min; Globulin 2.8 gm/dl (2.5-4.0); Total Protein 6.4 gm/dl (6.0-8.3)
[2022-05-27 08:55] LABS: Basophils # (auto) 0.09 K/uL (0-0.2); Eosinophils # (auto) 0.04 K/uL (0-0.50); Eosinophils % (auto) 1.3 %; Hematocrit (blood only) 23.5 % (37.0-47.0); Hemoglobin 8.2 g/dl (12.0-16.0); Immature Granulocytes # (auto) 0.08 K/uL (0.01-0.20); Immature Granulocytes % (auto) 2.6 %; Lymphocytes # (auto) 1.38 K/uL (1.2-3.4); Lymphocytes % (auto) 45.7 %; Mean Corpuscular Hemoglobin 30.4 pg (25.0-34.0); Mean Corpuscular Hgb Conc 34.9 g/dL (32.0-36.0); Monocytes # (auto) 0.25 K/uL (0.11-0.59); Monocytes % (auto) 8.3 %; Neutrophils # (auto) 1.18 K/uL (1.40-6.50); Neutrophils % (auto) 39.1 %; RDW Coefficient of Variation 14.5 % (11.5-14.5); White Blood Count 3.02 K/ul (4.8-10.8)
[2022-05-27] MEDS: VANCOMYCIN HCL 125 MG/2.5ML SOLN PO SCH ×2 (08:56→21:43)
[2022-05-27] MEDS: RASPBERRY SYRUP 5 ML UDP PO SCH ×2 (08:56→21:43)
[2022-05-27] MEDS: FAMOTIDINE 20 MG in SYRINGE 3 ML IV SCH (08:56)
--- NOTE | 2022-05-27 09:00 | Infectious Disease Progress Nt ---
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 Infectious Diseases consulted in setting of immunodeficiency and fevers. She has a h/o pre B ALL who had induction therapy completed in 01/2019 not completing last 3 cycles because of quality of life issues, continued on POMP maintenance through 09/2019. She is currently being considered for allogenic transplant vs immunity transplant. She has h/o recurrent uppers respiratory symptoms starting 02/2022 treated with Azithromycin then cefpodoxime. 03/25/[address] showed small nodular irregular airspace opacities with GGO halo favoring multifocal PNA. 04/23/22 she was prescribed Cefidinir but couldnt be filled and she received levofloxacin for 7 days. 05/[address] no evidence of sinusitis. Repeat CT chest showed resolved aeration of lungs with only minimal residual GGO of L lung. She was admitted to [facility] on 05/24 with 5 days of fevers to 101-102F occurring at night. She reports that since 5 days ago she has had continued night sweats and fevers responding to Tylenol/ibuprofen. She has not had any cough or sputum production. No abdominal pain, has been a little constipated with firm bowel movements. [place], has not noted any tick bites or rashes. Admission Vitals stable. Initial WBC 2.81 (neutrophils 1.05) Hgb 6.4 platelets 14, chemistry normal. UA clear except for trace blood. RVP negative. MRSA nares are negative. CXR showed cardiomegaly, lungs negative for active disease. 3/ Blood cultures are in lab. Review of prior cultures 3/2 Ucx grew lactobacillus (10,000 cfu/mL) 3/2 Blood cultures NG Patient placed on Cefepime, Vancomycin, Doxycycline and Vanco po ppx. CT C/A/P negative for infectious etiology 2DE no obvious vegetation or valvular lesion L Hip CT negative Liver U/S gallbladder sludge Line: L subclavian port Hardware: L ALEXIS Discussion: Patient with 2 weeks of fevers without clear source, in setting of pancytopenia. She is not neutropenic as of yesterday and her labs are pending today. CXR negative and UA is clear. She has a L chest port. Blood cultures are NG at [address] CAP no obvious pathology and GB shows some sludge but no clear cholecystitis or elevated tranaminases. Lyme test negative, dcd Doxy given her emesis. These findings make bacterial infection much less likely. I will plan to give her 5 days of Cefepime in lieu of gall bladder results. However etiologies now non-infectious (MDS?) vs viral (EBV, CMV P) and fungal (less likely) Heme/Onc evaluation is pending (2) Lymphoma: (3) Acute URI of multiple sites: Plan -C/W Cefepime will plan for 5 days total -BDG, CMV, EBV testing -Heme/Onc evaluation I am available by page this weekend, will RT service on Monday. Will d/w Dr. Margie Ramirez MD Infectious Diseases [facility] Admission and Anticipated Discharge Date Admission Date: May 24, 2022 Subjective This patient recommendation is based on a telemedicine consult request which was completed asynchronously through chart review and information provided by the primary physician. The patient was not seen or examined today. The evaluation is consultative in nature and all patient care and treatment decisions can either be accepted or rejected by the patient's primary hospital-based treating physician using their own independent medical judgment for their patient. Time Spent Reviewing Chart: 21 - 30 minutes 24 hours No documented fevers overnight U/S of liver shows some gallbladder sludge Results & Data ([facility]) Vital Signs (Past 12 Hours) Vital Signs Temp Pulse Pulse Resp BP BP Pulse Ox 05/27/22 07:53 37.2 C 82 16 123/75 97 05/27/22 07:23 83 05/27/22 04:00 36.8 C 76 20 113/63 96 05/26/22 23:43 36.8 C 90 20 121/64 96 05/26/22 22:00 85 O2 Del Method 05/27/22 07:53 Room Air 05/27/22 07:23 05/27/22 04:00 Room Air 05/26/22 23:43 Room Air 05/26/22 22:00 Laboratory Results Short CBC 05/26/22 05/27/22 Range/Units 09:07 07:14 WBC 3.06 L 3.02 L (4.8-10.8) K/ul Hgb 7.9 L 8.2 L (12.0-16.0) g/dl Hct 23.0 L 23.5 L (37.0-47.0) % Plt Count 14 L* (130-400) K/uL BMP 05/26/22 05/27/22 09:07 07:14 Sodium 139 139 Potassium 3.7 4.1 Chloride 108 H 107 Carbon Dioxide 26 28 BUN 19 18 Creatinine 0.81 0.77 Glucose 98 85 Calcium 8.8 8.8 Liver Function 05/26/22 05/27/22 Range/Units 09:07 07:14 Total Bilirubin 0.9 0.8 (0.2-1.0) mg/dl AST 11 L 10 L (13-39) U/L ALT 13 11 (7-52) U/L Alkaline Phosphatase 47 49 (34-104) U/L Albumin 3.5 3.6 (3.4-5.0) gm/dl Microbiology 05/24/22 16:32 Blood Aerobic Blood Culture - Preliminary No growth in Aerobic bottle after 48 hours. 05/24/22 16:32 Blood Anaerobic Blood Culture - Preliminary No growth in Anaerobic bottle after 48 hours. 05/24/22 16:37 Blood Aerobic Blood Culture - Preliminary No growth in Aerobic bottle after 48 hours. 05/24/22 16:37 Blood Anaerobic Blood Culture - Preliminary No growth in Anaerobic bottle after 48 hours. Diagnostic Findings Liver Ultrasound 05/26/22 14:18 US liver CLINICAL HISTORY: GB sludge, fever, eval TECHNIQUE: Multiple real-time sonographic images of the right upper quadrant were obtained. Comparison: None available at the time of this dictation. FINDINGS: The liver is diffusely echogenic in appearance with poor ultrasound penetration, with normal contour, which is consistent with fatty infiltration. Focal fatty sparing seen about the gallbladder fossa. No intrahepatic ductal dilatation is seen. Low level internal echoes are identified layering dependently within the gallbladder, which is consistent with gallbladder sludge. The gallbladder wall is not thickened. There is no pericholecystic fluid present. A sonographic Covington's sign was not elicited by the breakfast and room attendant. The common duct measures 0.4 cm in diameter at the level of the hepatic artery. The visualized portions of the pancreas appear normal. The right kidney shows normal echogenicity, cortical thickness and renal contour. The right kidney shows no evidence of hydronephrosis or mass. No ascites or free fluid is seen in Mello's pouch. IMPRESSION: Unremarkable right upper quadrant ultrasound. ACT 112: Negative or not required by law. Electronically signed by: Jose Tom M.D. 05/27/2022 9:01 AM Medications Administered Current Inpatient Medications Acetaminophen (Acetaminophen 500 Mg Tab) 1,000 mg PO Q8H PRN PRN Reason: Pain or Fever Stop: 06/24/22 16:05 Last Admin: 05/25/22 16:56 Dose: 1,000 mg Famotidine 20 mg/ Syringe 5 mls @ 2.5 mls/min IV QAM EDWIN Stop: 06/25/22 14:29 Last Admin: 05/27/22 08:56 Dose: Not Given Cefepime HCl 2,000 mg/ Syringe 20 mls @ 5 mls/min IV Q8H EDWIN; Protocol Stop: 06/01/22 08:59 Ondansetron HCl (Ondansetron Inj 2 Mg/Ml 2 Ml Vial) 4 mg IV Q4H PRN PRN Reason: Nausea Stop: 06/25/22 14:26 Raspberry (Raspberry Syrup 5 Ml Udp) 5 ml PO BID EDWIN Stop: 06/23/22 20:59 Last Admin: 05/27/22 08:56 Dose: 5 ml Vancomycin HCl (Vancomycin Hcl 125 Mg/2.5ml Soln) 125 mg PO BID EDWIN Stop: 06/23/22 20:59 Last Admin: 05/27/22 08:56 Dose: 125 mg
[2022-05-27 09:11] LABS: Platelet Count 13 K/uL (130-400)
[2022-05-27] MEDS: CEFEPIME 2,000 MG in SYRINGE 0 ML IV SCH ×2 (10:31→16:47)
[2022-05-27 14:12] LABS: CMV IgG Antibody <0.60 U/mL; CMV IgM Antibody <30.00 AU/mL; HBSAG NON-REACTIVE (NON-REACTIVE); Hepatitis A Antibody IgM NON-REACTIVE (NON-REACTIVE); Hepatitis B Core Antibody IgM NON-REACTIVE (NON-REACTIVE)
[2022-05-28] MEDS: CEFEPIME 2,000 MG in SYRINGE 0 ML IV SCH ×4 (01:58→16:59)
--- NOTE | 2022-05-28 06:49 | Hospitalist Progress Note ---
Date of Service May 28, 2022 Assessment & Plan (1) Fever: Plan: Patient has been afebrile for more than 48 hours and exhaustive work-up has not revealed any identifiable infection. 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 Furthermore, that was treated to remission and there have been no signs of that recurring. She has a remote history of rectal adenocarcinoma but neither has there been any suggestion of its recurrence. She has never had a specific diagnosis of lymphoma nor or either of her previous diagnoses of ALL 4 rectal adenocarcinoma associated with a fever. Her current diagnosis is of myelodysplasia with potential "tipping over" into an acute myeloid leukemia like picture though she does not show donato clinical evidence of the latter at this time. Anticipate that bone marrow aspiration biopsy may be repeated in the near future by her [facility] team but even if she has progressed to the latter, neither MDS nor AML are typically associated with "tumor fever." In the context of that as the primary diagnosis, any fever especially to 39 C is assumed to represent infection or the very least have a nononcologic origin. While the work-up has been negative, there has to be some concern that the multiple rounds of previous antibiotics may have sufficiently suppressed some smoldering infection to escape easy detection but the continual recurrence of fe nicole even after aggressive antibiotic therapy has to raise significant concerns over some persistent but as yet occult focus. In particular, even though cultures have been repetitively negative there might be some ongoing suspicion of an infected Port-A-Cath and its empiric removal may need to be part of a future effort to address her recurring fevers if indeed they do relapse in time which has certainly been the pattern to date. Fortunately that would be a relatively minor procedure and moreover as she moves towards transplant she may need alternative access in any case. Practical challenge would be the bridging from the time the port is removed to the time that she has another device placed for the transplant itself both in terms of clearing any infection prior to the placement of the latter avoiding its own contamination but also the practical issue of the need for possible transfusion support during that time with poor peripheral access. Her hip replacement might be another site of a smoldering persistent infection that waxes and wanes in its manifestations and may not be sufficient to detect by imaging or culture. Obviously that would be a much more difficult issue with respect to "empiric" removal and that certainly does not seem to be practical in the absence of an unequivocal indicator of such infection. Iif she were to relapse with major fevers spikes even during the current admission, transfer to [facility] might be worthwhile to more robustly access infectious disease resources. If she remains clinically stable, could discharge by early week. She is scheduled to see the [facility] transplant team next and that would be at least an opportunity to "plug in" to all the resources there. Given the anticipation of a haploidentical stem cell transplant, any potential concern for infection has to be completely eliminated before proceeding as the intense and prolonged immunosuppression that would accompany the transplant could turn a smoldering infection into a life-ending process. At the same time, there is some urgency to proceed with transplant as her hematologic status is not likely to remain stable ongoing and thus we do not necessarily have the luxury of additional months of simple observation. Plan As above, if she remains afebrile would discharge after an appropriate course of antibiotics here for outpatient follow-up with the [facility] transplant team. If significant temperature spikes recur, would consider hospital to hospital transfer to [place]. In the absence of the latter, do not anticipate any further specific hematology/oncology issues will arise and I will "sign off." Please do not hesitate to call if additional issues arise during the remainder of her hospitalization here Admission and Anticipated Discharge Date Admission Date: May 24, 2022 Subjective Feels relatively well, somewhat tired but without major focal symptomatology Physical Exam Physical Exam: Has been afebrile for a little bit more than 48 hours, vital signs are stable Alert, appropriate, does not seem in any significant distress Lungs heart and abdominal examination seem stable Results & Data Results & Data ([facility]) Vital Signs (Past 12 Hours) Vital Signs Temp Pulse Pulse Resp BP BP Pulse Ox 05/28/22 03:50 37.0 C 80 18 113/60 96 05/27/22 22:01 85 05/28/22 00:00 37.0 C 84 18 119/67 94 05/27/22 20:00 37.0 C 85 18 106/62 98 O2 Del Method 05/28/22 03:50 Room Air 05/27/22 22:01 05/28/22 00:00 Room Air 05/27/22 20:00 Room Air Laboratory Results Abnormal lab results 0305/27/22 05/27/22 Range/Units 09:07 07:14 07:14 WBC 3.02 L (4.8-10.8) K/ul RBC 2.70 L (4.20-5.40) M/uL Hgb 8.2 L (12.0-16.0) g/dl Hct 23.5 L (37.0-47.0) % Plt Count 13 L* (130-400) K/uL Neut # (Auto) 1.18 L (1.40-6.50) K/uL BUN/Creatinine Ratio 23.4 H (10-20) AST 10 L (13-39) U/L EBV Capsid Ag IgG Ab 376.00 H U/mL EBV Nuclear Antigen Ab 30.50 H U/mL PG Care Time/CCT Total # of Minutes Spent Total Time Spent with Patient: Total time spent is greater than 50% in coordination of care (as documented) at patient's floor/unit and/or counseling patient: Coding Level of Care Code 09629 SUB INP/OBS CARE 1/25MIN Diagnoses Fever R50.9
[2022-05-28] MEDS ORDERED: HEPARIN 100 UNIT/ML 5ML FLUSH ONE ×3 (07:25→16:55)
--- NOTE | 2022-05-28 07:38 | Hospitalist Progress Note ---
Date of Service May 28, 2022 Assessment & Plan (1) Fever: Plan: Viral versus bacterial sepsis in the setting of an immunocompromised patient Fever of unknown origin (of note, patient on multiple rounds of abx over past 6 weeks, ~ 4 different courses, negative cultures difficult to interpret currently however no obvious infectious etiology at this time) ABx on admit : cefepime, Doxy IV and PO Vanco given hx c.diff w/ recurrence Lyme negative, anaplasmosis smear negative, PCR pending but ID d/c Doxy given emesis and testing Biofire negative Stool PCR/cdiff NEGATIVE Procal 0.05 Blood cultures remain NGTD Fever 39C on @16:48, nothing further CT Chest/Abd/Pelvis without significant abn CT hip done given prior replacement for completeness, negative Prior GB sludge, and obtained RUQ US for further eval -- sludge but no pericholecystic fluid noted (did discuss w/ patient could have HIDA outpt once off abx if ongoing issues after plan as outlined) Heme/onc, ID consulted -- discussed and could be from underlying malignancy vs viral process -- also discussed w/ Dr Vidal and neg cultures/prior abx use and caution. Did discuss could call to [facility] to see about tx for treatment/eval however they may given push back. Patient does have appt on this upcoming week and if remains stable could complete the 5 days Cefepime per ID and have her f/u [facility] this upcoming week. Hepatitis panel negative, CMV nonreactive, EBV suggestive of prior infection Fungitel pending Discussed w/ ID and can probably stop abx tomorrow and watch off abx for ongoing fevers --> messaged ID this evening given prior scattered calcified granulomata throughout R lung on prior CT chest in Mar/Apr -- per pulm, no concerns for TB given subsequent imaging clear. Imaging from earlier this month c/w multifocal pna 05/28 --> instructions to give AM dose of cefepime and will discontinue further after total 5 days (will be after this afternoon's dose) and monitor for any further fevers BCx remain NGTD Will d/c PO Vanco as well If not having any more fevers will plan to dc tomorrow and have patient follow up with [facility] on as already arranged Will burn disc for imaging/call xray to push imaging prior to d/c so they have imaging for review (2) MDS (myelodysplastic syndrome): Plan: MDS Hgb <7 on admit 2u PRBC Repeat hgb 8.3 --> 7.9 and continue to monitor Transfuse for hgb <7.5, platelets w/ bleeding <20k, <10 otherwise > Of note, requires irradiated blood products Heme/onc consulted -- messaged about blown vessel to her LEFT eye morning 05/26/need for platelets -- to hold off for now, plt stable on repeat at 13k Hgb actually improved from 7.9 to 8.2 on IVF 05/26 while NPO awaiting RUQ US Hgb stable at 8.2, plt lower at 11 and will monitor (likely from subconjunctival hemm) Monitor CBC in AM Posttreatment myelodysplastic syndrome 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 difficile while with biotics On empiric Vanco PO 125,mg BID Reporting BM x 5 in AM 05/25 -- checked stool biofire/cdiff testing -- NEGATIVE Also getting CTAP as above May require PO dificid if recurrence infection not resolved w/ PO vanco --> stool testing NEGATIVE stool PCR and can consider d/c but will continue while on IV abx inpatient and d/c later today (5) Pancytopenia: Plan: as above (6) Nausea and vomiting: Plan: morning 05/26 following doxycycline use doxy d/c by ID as possible cause added zofran prn, has not required start pepcid IVP daily while on abx , consideration for PPI if needed/ineffective (she declined that this morning, did have some reflux but thought from abx but discussed available if needed) RUQ US unrevealing, can consider HIDA outpt off abx for further eval EF (7) Subconjunctival hemorrhage: Plan: suspected 2nd to nausea/vomiting after PO Doxy use 05/26, stable and plt stable 14-->13k, no further bleeding No loss of vision/change in vision however is slightly painful ice/heat declined 05/27 but requested later and RN to provide stable at present -- to f/u ophth if persistent >2wks outpatient or worsened Continue to monitor DVT prophylaxis: Pharmacal prophylaxis contraindicated due to thrombocytopenia and anemia Plan d/c cefepime after this afternoon dose monitor for any fevers but if none can d/c tomorrow Admission and Anticipated Discharge Date Admission Date: May 24, 2022 Supervising Physician Co-Signing Physician Notes The patient was not seen by me. The chart was reviewed. Case discussed with SHANTEL Alaniz. Agree with assessment and plan Subjective eval this morning, doing alright feeling tired. no further fevers Eating more than she had been in a while, thinks she might have overdone it and had some indigestion, no issues currently. states got cefepime this morning (confirmed w/ nursing wasn't given but asked to give that dose and then discontinue further) and monitor off abx for any further fevers. If remains stable will plan for d/c tomorrow and have outpt follow up. States discussion w/ ortho and imaging removed but if not having issues w/ pain then would not removed. Dr Vidal did discuss possible need to remove her port (does look good on exam however) as could be potential source w/o other causes identified. Questions/concerns addressed at this time. Physical Exam Physical Exam: General: WD/WN female , general pallor, sleeping in bed initially, easily awoken, NAD but reporting feeling tired HEENT: Atraumatic, normocephalic, mm improved , trachea midline, no deviation LEFT eye w/ subconjunctival hemorrhage medial/inferiorly, no vision changes, pupil equal/reactive Chest: port to LEFT chest, covered. dressing c/d/i, no evidence for infection Resp: CTAB, no w/c, on room air CV: RRR, no significant m/r/g, no pitting edema, pulses palpable, calves nontender GI: +BS, soft/NT, no rebound/guarding : voiding spontaneously MSK/Neuro: no focal deficit Psych: AOx3, pleasant and cooperative Results & Data Results & Data ([facility]) Vital Signs (Past 12 Hours) Vital Signs Temp Pulse Pulse Resp BP BP Pulse Ox 05/28/22 07:14 73 05/28/22 03:50 37.0 C 80 18 113/60 96 05/27/22 22:01 85 05/28/22 00:00 37.0 C 84 18 119/67 94 05/27/22 20:00 37.0 C 85 18 106/62 98 O2 Del Method 05/28/22 07:14 05/28/22 03:50 Room Air 05/27/22 22:01 05/28/22 00:00 Room Air 05/27/22 20:00 Room Air Laboratory Results 05/27/22 05/27/22 05/26/22 Range/Units 07:14 07:14 09:07 WBC 3.02 L (4.8-10.8) K/ul RBC 2.70 L (4.20-5.40) M/uL Hgb 8.2 L (12.0-16.0) g/dl Hct 23.5 L (37.0-47.0) % MCV 87.0 (80.0-100.0) fL MCH 30.4 (25.0-34.0) pg MCHC 34.9 (32.0-36.0) g/dL RDW Std Deviation 45.0 (36.4-46.3) fL RDW Coeff of Garcia 14.5 (11.5-14.5) % Plt Count 13 L* (130-400) K/uL Immature Gran % (Auto) 2.6 % Neut % (Auto) 39.1 % Lymph % (Auto) 45.7 % Placer % (Auto) 8.3 % Eos % (Auto) 1.3 % Baso % (Auto) 3.0 % Neut # (Auto) 1.18 L (1.40-6.50) K/uL Lymph # (Auto) 1.38 (1.2-3.4) K/uL Placer # (Auto) 0.25 (0.11-0.59) K/uL Eos # (Auto) 0.04 (0-0.50) K/uL Baso # (Auto) 0.09 (0-0.2) K/uL Immature Gran # (Auto) 0.08 (0.01-0.20) K/uL Sodium 139 (136-145) mmol/L Potassium 4.1 (3.5-5.1) mmol/L Chloride 107 (98-107) mmol/L Carbon Dioxide 28 (21-32) mmol/L Anion Gap 4 (3-11) BUN 18 (6-23) mg/dl Creatinine 0.77 (0.6-1.2) mg/dl Est Cr Clr Drug Dosing 66.8 ml/min Est GFR ( Amer) 92.6 ml/min Est GFR (Non-Af Amer) 79.9 ml/min BUN/Creatinine Ratio 23.4 H (10-20) Glucose 85 (70-99(Fasting)) mg/dl Calcium 8.8 (8.5-10.1) mg/dl Magnesium 2.0 (1.7-2.4) mg/dl Total Bilirubin 0.8 (0.2-1.0) mg/dl AST 10 L (13-39) U/L ALT 11 (7-52) U/L Alkaline Phosphatase 49 (34-104) U/L Total Protein 6.4 (6.0-8.3) gm/dl Albumin 3.6 (3.4-5.0) gm/dl Globulin 2.8 (2.5-4.0) gm/dl Albumin/Globulin Ratio 1.3 (0.9-2) CMV IgM Ab AU/mL CMV IgG Ab/TORCH U/mL EBV Capsid Ag IgG Ab 376.00 H U/mL EBV Capsid Ag IgM Ab <36.00 U/mL EBV Nuclear Antigen Ab 30.50 H U/mL EBV Antibody Interp SEE NOTE Hepatitis A IgM Ab (NON-REACTIVE) Hep Bs Antigen (NON-REACTIVE) Hep Bs Ag Confirmation Hep B Core IgM Ab (NON-REACTIVE) Hepatitis C Ab (EIA) (NON-REACTIVE) Hep C Ab Signal/Cutoff (<1.00) 05/26/22 Range/Units 09:07 WBC (4.8-10.8) K/ul RBC (4.20-5.40) M/uL Hgb (12.0-16.0) g/dl Hct (37.0-47.0) % MCV (80.0-100.0) fL MCH (25.0-34.0) pg MCHC (32.0-36.0) g/dL RDW Std Deviation (36.4-46.3) fL RDW Coeff of Garcia (11.5-14.5) % Plt Count (130-400) K/uL Immature Gran % (Auto) % Neut % (Auto) % Lymph % (Auto) % Placer % (Auto) % Eos % (Auto) % Baso % (Auto) % Neut # (Auto) (1.40-6.50) K/uL Lymph # (Auto) (1.2-3.4) K/uL Placer # (Auto) (0.11-0.59) K/uL Eos # (Auto) (0-0.50) K/uL Baso # (Auto) (0-0.2) K/uL Immature Gran # (Auto) (0.01-0.20) K/uL Sodium (136-145) mmol/L Potassium (3.5-5.1) mmol/L Chloride (98-107) mmol/L Carbon Dioxide (21-32) mmol/L Anion Gap (3-11) BUN (6-23) mg/dl Creatinine (0.6-1.2) mg/dl Est Cr Clr Drug Dosing ml/min Est GFR ( Amer) ml/min Est GFR (Non-Af Amer) ml/min BUN/Creatinine Ratio (10-20) Glucose (70-99(Fasting)) mg/dl Calcium (8.5-10.1) mg/dl Magnesium (1.7-2.4) mg/dl Total Bilirubin (0.2-1.0) mg/dl AST (13-39) U/L ALT (7-52) U/L Alkaline Phosphatase (34-104) U/L Total Protein (6.0-8.3) gm/dl Albumin (3.4-5.0) gm/dl Globulin (2.5-4.0) gm/dl Albumin/Globulin Ratio (0.9-2) CMV IgM Ab <30.00 AU/mL CMV IgG Ab/TORCH <0.60 U/mL EBV Capsid Ag IgG Ab U/mL EBV Capsid Ag IgM Ab U/mL EBV Nuclear Antigen Ab U/mL EBV Antibody Interp Hepatitis A IgM Ab NON-REACTIVE (NON-REACTIVE) Hep Bs Antigen NON-REACTIVE (NON-REACTIVE) Hep Bs Ag Confirmation TNP Hep B Core IgM Ab NON-REACTIVE (NON-REACTIVE) Hepatitis C Ab (EIA) NON-REACTIVE (NON-REACTIVE) Hep C Ab Signal/Cutoff 0.02 (<1.00) Diagnostic Findings Liver Ultrasound 05/26/22 14:18 US liver CLINICAL HISTORY: GB sludge, fever, eval TECHNIQUE: Multiple real-time sonographic images of the right upper quadrant were obtained. Comparison: None available at the time of this dictation. FINDINGS: The liver is diffusely echogenic in appearance with poor ultrasound penetration, with normal contour, which is consistent with fatty infiltration. Focal fatty sparing seen about the gallbladder fossa. No intrahepatic ductal dilatation is seen. Low level internal echoes are identified layering dependently within the gallbladder, which is consistent with gallbladder sludge. The gallbladder wall is not thickened. There is no pericholecystic fluid present. A sonographic C[place]'s sign was not elicited by the pipe threading machine operator. The common duct measures 0.4 cm in diameter at the level of the hepatic artery. The visualized portions of the pancreas appear normal. The right kidney shows normal echogenicity, cortical thickness and renal contour. The right kidney shows no evidence of hydronephrosis or mass. No ascites or free fluid is seen in Mello's pouch. IMPRESSION: Unremarkable right upper quadrant ultrasound. ACT 112: Negative or not required by law. Electronically signed by: Jose Tom M.D. 05/27/2022 9:01 AM PG Care Time/CCT Total # of Minutes Spent Total Time Spent with Patient: Total time spent is greater than 50% in coordination of care (as documented) at patient's floor/unit and/or counseling patient: Coding Level of Care Code 13373 SUB INP/OBS CARE 2/35MIN Diagnoses Fever R50.9 MDS (myelodysplastic syndrome) D46.9 Lymphoma C85.90 History of Clostridioides difficile infection Z86.19 Pancytopenia D61.818 Nausea and vomiting R11.2 Subconjunctival hemorrhage H11.30
[2022-05-28] MEDS: FAMOTIDINE 20 MG in SYRINGE 3 ML IV SCH (07:40)
[2022-05-28] MEDS: VANCOMYCIN HCL 125 MG/2.5ML SOLN PO SCH (07:50)
[2022-05-28] MEDS: RASPBERRY SYRUP 5 ML UDP PO SCH (07:50)
[2022-05-28 08:00] LABS: Hematocrit (blood only) 23.7 % (37.0-47.0); Hemoglobin 8.2 g/dl (12.0-16.0); Mean Corpuscular Hemoglobin 30.1 pg (25.0-34.0); Mean Corpuscular Hgb Conc 34.6 g/dL (32.0-36.0); Mean Corpuscular Volume 87.1 fL (80.0-100.0); Platelet Count 11 K/uL (130-400); RDW Coefficient of Variation 14.6 % (11.5-14.5); RDW Standard Deviation 45.4 fL (36.4-46.3); Red Blood Count 2.72 M/uL (4.20-5.40); White Blood Count 3.33 K/ul (4.8-10.8)
[2022-05-28 08:11] LABS: Calcium 8.8 mg/dl (8.5-10.1); Creatinine Clr Calc Pharmacy 67.5 ml/min; Est GFR (African American) 94.1 ml/min; Est GFR (Non-African American) 81.2 ml/min; Potassium 4.2 mmol/L (3.5-5.1)
[2022-05-28 08:14] LABS: Eosinophils # (auto) 0.04 K/uL (0-0.50); Eosinophils % (auto) 1.2 %; Immature Granulocytes # (auto) 0.11 K/uL (0.01-0.20); Immature Granulocytes % (auto) 3.3 %; Lymphocytes # (auto) 1.51 K/uL (1.2-3.4); Lymphocytes % (auto) 45.3 %; Monocytes # (auto) 0.32 K/uL (0.11-0.59); Monocytes % (auto) 9.6 %; Neutrophils # (auto) 1.25 K/uL (1.40-6.50); Neutrophils % (auto) 37.6 %
[2022-05-28 19:28] LABS: Fungitell (1-3)-B-D-Glucan <31 pg/mL
--- NOTE | 2022-05-29 07:31 | Hospitalist Progress Note ---
Date of Service May 29, 2022 Assessment & Plan (1) Fever: Plan: Viral versus bacterial sepsis in the setting of an immunocompromised patient Fever of unknown origin (of note, patient on multiple rounds of abx over past 6 weeks, ~ 4 different courses, negative cultures difficult to interpret currently however no obvious infectious etiology at this time) ABx on admit : cefepime, Doxy IV and PO Vanco given hx c.diff w/ recurrence Lyme negative, anaplasmosis smear negative, PCR pending but ID d/c Doxy given emesis and testing Biofire negative Stool PCR/cdiff NEGATIVE Procal 0.05 Blood cultures remain NGTD Fever 39C on @16:48, nothing further CT Chest/Abd/Pelvis without significant abn CT hip done given prior replacement for completeness, negative Prior GB sludge, and obtained RUQ US for further eval -- sludge but no pericholecystic fluid noted (did discuss w/ patient could have HIDA outpt once off abx if ongoing issues after plan as outlined) Heme/onc, ID consulted -- discussed and could be from underlying malignancy vs viral process -- also discussed w/ Dr Vidal and neg cultures/prior abx use and caution. Did discuss could call to [facility] to see about tx for treatment/eval however they may given push back. Patient does have appt on this upcoming week and if remains stable could complete the 5 days Cefepime per ID and have her f/u [facility] this upcoming week. Hepatitis panel negative, CMV nonreactive, EBV suggestive of prior infection Fungitel pending Discussed w/ ID and can probably stop abx tomorrow and watch off abx for ongoing fevers --> messaged ID this evening given prior scattered calcified granulomata throughout R lung on prior CT chest in Mar/Apr -- per pulm, no concerns for TB given subsequent imaging clear. Imaging from earlier this month c/w multifocal pna 05/28 --> instructions to give AM dose of cefepime and will discontinue further after total 5 days (will be after this afternoon's dose) and monitor for any further fevers BCx remain NGTD Will d/c PO Vanco as well If not having any more fevers will plan to dc tomorrow and have patient follow up with [facility] on as already arranged Will burn disc for imaging/call xray to push imaging prior to d/c so they have imaging for review (2) MDS (myelodysplastic syndrome): Plan: MDS Hgb <7 on admit 2u PRBC Repeat hgb 8.3 --> 7.9 and continue to monitor Transfuse for hgb <7.5, platelets w/ bleeding <20k, <10 otherwise > Of note, requires irradiated blood products Heme/onc consulted -- messaged about blown vessel to her LEFT eye morning 05/26/need for platelets -- to hold off for now, plt stable on repeat at 13k Hgb actually improved from 7.9 to 8.2 on IVF 05/26 while NPO awaiting RUQ US Hgb stable at 8.2, plt lower at 11 and will monitor (likely from subconjunctival hemm) Monitor CBC in AM Posttreatment myelodysplastic syndrome 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 difficile while with biotics On empiric Vanco PO 125,mg BID Reporting BM x 5 in AM 05/25 -- checked stool biofire/cdiff testing -- NEGATIVE Also getting CTAP as above May require PO dificid if recurrence infection not resolved w/ PO vanco --> stool testing NEGATIVE stool PCR and can consider d/c but will continue while on IV abx inpatient and d/c later today (5) Pancytopenia: Plan: as above (6) Nausea and vomiting: Plan: morning 05/26 following doxycycline use doxy d/c by ID as possible cause added zofran prn, has not required start pepcid IVP daily while on abx , consideration for PPI if needed/ineffective (she declined that this morning, did have some reflux but thought from abx but discussed available if needed) RUQ US unrevealing, can consider HIDA outpt off abx for further eval EF (7) Subconjunctival hemorrhage: Plan: suspected 2nd to nausea/vomiting after PO Doxy use 05/26, stable and plt stable 14-->13k, no further bleeding No loss of vision/change in vision however is slightly painful ice/heat declined 05/27 but requested later and RN to provide stable at present -- to f/u ophth if persistent >2wks outpatient or worsened Continue to monitor DVT prophylaxis: Pharmacal prophylaxis contraindicated due to thrombocytopenia and anemia Plan d/c cefepime after this afternoon dose monitor for any fevers but if none can d/c tomorrow Admission and Anticipated Discharge Date Admission Date: May 24, 2022 Results & Data Results & Data ([facility]) Vital Signs (Past 12 Hours) Vital Signs Temp Pulse Resp BP BP Pulse Ox O2 Del Method 05/28/22 23:40 37.0 C 86 18 111/63 96 Room Air 05/28/22 19:00 37.0 C 82 18 114/64 94 Room Air PG Care Time/CCT Total # of Minutes Spent Total Time Spent with Patient: Total time spent is greater than 50% in coordination of care (as documented) at patient's floor/unit and/or counseling patient: Coding Diagnoses Fever R50.9 MDS (myelodysplastic syndrome) D46.9 Lymphoma C85.90 History of Clostridioides difficile infection Z86.19 Pancytopenia D61.818 Nausea and vomiting R11.2 Subconjunctival hemorrhage H11.30
[2022-05-29] MEDS: ACETAMINOPHEN 500 MG TAB PO PRN (07:37)
[2022-05-29 08:05] LABS: Hematocrit (blood only) 24.2 % (37.0-47.0); Hemoglobin 8.2 g/dl (12.0-16.0); Mean Corpuscular Hemoglobin 29.4 pg (25.0-34.0); Mean Corpuscular Hgb Conc 33.9 g/dL (32.0-36.0); Mean Corpuscular Volume 86.7 fL (80.0-100.0); Platelet Count 10 K/uL (130-400); RDW Coefficient of Variation 14.3 % (11.5-14.5); Red Blood Count 2.79 M/uL (4.20-5.40); White Blood Count 3.74 K/ul (4.8-10.8)
[2022-05-29 08:14] LABS: Basophils # (auto) 0.11 K/uL (0-0.2); Basophils % (auto) 2.9 %; Eosinophils # (auto) 0.04 K/uL (0-0.50); Eosinophils % (auto) 1.1 %; Immature Granulocytes % (auto) 2.7 %; Lymphocytes # (auto) 1.57 K/uL (1.2-3.4); Monocytes # (auto) 0.38 K/uL (0.11-0.59); Monocytes % (auto) 10.2 %; Neutrophils # (auto) 1.54 K/uL (1.40-6.50); Neutrophils % (auto) 41.1 %
[2022-05-29] MEDS: FAMOTIDINE 20 MG in SYRINGE 3 ML IV SCH (08:40)
[2022-05-29 09:01] LABS: Albumin Globulin Ratio 1.2 (0.9-2); Albumin Level 3.7 gm/dl (3.4-5.0); BUN Creatinine Ratio 24.7 (10-20); Bilirubin,Total 0.7 mg/dl (0.2-1.0); Calcium 8.8 mg/dl (8.5-10.1); Creatinine Clr Calc Pharmacy 70.2 ml/min; Est GFR (African American) 98.8 ml/min; Est GFR (Non-African American) 85.2 ml/min; Magnesium 1.9 mg/dl (1.7-2.4); Potassium 4.3 mmol/L (3.5-5.1); Total Protein 6.7 gm/dl (6.0-8.3)
[2022-05-29] MEDS ORDERED: diphenhydrAMINE Capsule 25 MG CAP PO ONE (10:04)
[2022-05-29] MEDS ORDERED: ACETAMINOPHEN 325 MG TAB PO ONE (10:05)
[2022-05-29] MEDS ORDERED: HYDROCORTISONE SOD 50 MG in SYRINGE 0 ML IV ONE (10:10)
--- NOTE | 2022-05-29 10:44 | Discharge Summary ---
Date of Service May 29, 2022 Admission HPI Per Admitting Provider Mariana is a 66-year-old female with a past medical history of B-cell AL L, hypertension, atrial fibrillation, recurrent UTI Mariana is a 69-year-old female with a history of B-cell leukemia, A-fib, hypertension, pancytopenia who presents as a direct admit from the cancer care center for persistent fever with pancytopenia despite ciprofloxacin treatment, and anemia less than 7 in the setting of 1 year of myelodysplastic syndrome. Currently seen at the bedside with her present. She reports that since 5 days ago she has had continued night sweats and fevers of 101-102 F which mostly occur at night and which are intermittent and more rare throughout the day and which respond to Tylenol/ibuprofen. She has not had any cough or sputum production. No abdominal pain, has been a little constipated with firm bowel movements. [place], has not noted any tick bites or rashes. She did have bronchitis back in February and has been treated with azithromycin followed by cefpodoxime, and more recently ciprofloxacin which she has been taking twice daily for last 5 days and took this morning. Her fevers and chills have not improved with ciprofloxacin. She reports she has taken a fourth antibiotic between February and now, but does not recall the name of it. Cefdinir is noted on her chart, but notes this was switched to another similar medicine which she does not recall, was switched as pharmacy was on backorder for cefdinir. She has had some bloating and constipation, but again no abdominal pain or diarrhea. She has a history of B-cell lymphoma and 1 year of myelodysplastic syndrome with recurrent red blood cell transfusions. Last transfusion was 3 weeks ago. Generally fatigued, but no focal aches. Medical History: Reviewed Medications: Reviewed Surgical History: Reviewed Family history: Reviewed Allergies: Reviewed Social History: No tobacco/etoh/rec drug Code Status: DNR?DNI Admission Exam Per Admitting Provider General: A&Ox3. NAD. Cooperative. HEENT: Atraumatic, normocephalic. Vision and hearing grossly intact. No scleral injection. Thorax: Left port in place, without tenderness or overlying erythema/discharge Pulm: CTAB A&P. -wheezes, -rales, -rhonchi. Symmetrical chest rise. No increased work of breathing. No respiratory distress. Cardiac: Mild intermittent tachycardia, regular., -mrg. Radial pulses intact and symmetrical. Abdominal: Nontender, nondistended, soft. BS present. Extremities: Warm, dry. No edema. No lesions. Sensation soft touch intact in hands and feet without deficit, distal extremity strength is intact and symmetrical Principal Diagnosis Fever Unknown Origin Discharge Exam General: WD/WN female , general pallor, resting in bed, at bedside, NAD HEENT: Atraumatic, normocephalic, mm improved , trachea midline, no deviation LEFT eye w/ subconjunctival hemorrhage medial/inferiorly, IMPROVING, pupils equal in size Chest: port to LEFT chest, covered. dressing c/d/i, no evidence for infection Resp: CTAB, no w/c, on room air CV: RRR, no significant m/r/g, no pitting edema, pulses palpable, calves nontender GI: +BS, soft/NT, no rebound/guarding : voiding spontaneously MSK/Neuro: no focal deficit Psych: AOx3, pleasant and cooperative Skin: slight faint bruising anterior pete L leg, R leg, R elbow, no cuts noted/active bleeding Discharge Data Allergies Allergy/AdvReac Type Severity Reaction Status Date / Time hydromorphone [From Dilaudid] Allergy Severe Hallucinati Verified 05/03/22 08:02 ng latex Allergy Severe SYSTEMIC Verified 05/03/22 08:02 ALLERGIC RESPONSE Penicillins Allergy Severe HIVES,DIFF. Verified 05/03/22 08:02 BREATHING codeine AdvReac Intermediate INDUCES Verified 05/03/22 08:02 MIGRAINE HEADACHES verapamil AdvReac Mild very sleepy Verified 05/03/22 08:02 morphine AdvReac Migraine Verified 05/03/22 08:02 Consultations 05/24/22 14:59 Consult Infectious Diseases Routine 05/25/22 14:24 Consult Oncology Routine 05/29/22 09:08 Burn CD for patient Routine Ordered Studies Chest X-Ray 05/24/22 14:59 SINGLE VIEW CHEST CLINICAL HISTORY: Fever FINDINGS: An AP, portable, upright chest radiograph is compared to study dated 03/23/2022 and correlated with chest CT dated 05/02/2022. A left subclavian central venous infusion port is unchanged in position. The heart is enlarged. The pulmonary vasculature is noncongested. Calcified mediastinal and right hilar lymph nodes are similar to previous. The lungs and pleural spaces are clear. No pneumothorax is seen. The skeletal structures are osteopenic. The bony thorax is grossly intact. IMPRESSION: Cardiomegaly with no active disease in the chest. ACT 112: Negative or not required by law. Electronically signed by: Irvin Martinez M.D. 05/24/2022 6:04 PM Abdomen/Pelvis CT 05/24/22 16:30 CT abd pelvis IV con only CLINICAL HISTORY: persistent fever, hx B-cell lymphoma. ?splenic les TECHNIQUE: Helical axial images of the abdomen and pelvis were obtained and displayed. Automated dose lowering techniques and/or adjustment according to patient size were utilized for this exam. This exam was performed with intra venous contrast. COMPARISON: Comparison is made to CT abdomen pelvis 10/03/2021 FINDINGS: Lower chest: For findings above the diaphragm, please see CT chest performed same day. Liver: Hepatic steatosis is noted. Gallbladder and biliary tree: Layering radiodense material is seen in the dependent portion of the likely representing sludge. No intra- or extrahepatic biliary ductal dilation. Pancreas: Unremarkable, no focal lesions. Spleen: Calcifications are noted in the spleen compatible with prior granulomatous disease. Adrenals: Unremarkable. Kidneys and ureters: Unremarkable. Bladder: Unremarkable. Reproductive organs: Unremarkable. Bowel: Patient is status post rectal resection. Numerous diverticula are seen without evidence of diverticulitis. A hiatal hernia is seen. Lymph nodes Retroperitoneal: Unremarkable. Pelvic: Unremarkable. Mesenteric: Unremarkable. Peritoneum: Normal. Vessels: Unremarkable. Abdominal wall: Unremarkable. Bones: Left hip total arthroplasty is seen. IMPRESSION: 1. No evidence of lymphadenopathy in this patient with history of B-cell lymphoma. No acute abnormalities are seen. No splenic lesion. 2. Hepatic steatosis. ACT 112: Negative or not required by law. Electronically signed by: Jose Tom M.D. 05/25/2022 3:[address] 05/25/22 13:57 CT SCAN OF THE CHEST WITH IV CONTRAST CLINICAL HISTORY: Fever. Lymphoma. COMPARISON STUDY: Chest CT scans dated 05/02/2022 and 10/26/2018. TECHNIQUE: Following the IV administration of 87 cc of Optiray 350, CT scan of the thorax was performed from the thoracic inlet to the upper abdomen. Images are reviewed in the axial, sagittal, and coronal planes. IV contrast was administered without complication. A dose lowering technique was utilized adhering to the principles of ALARA. CT DOSE: 667.33 mGy.cm FINDINGS: Thyroid: Imaged portions of the thyroid gland are normal in size and attenuation. Thoracic aorta: There is moderate atherosclerotic calcification of the thoracic aorta, which is normal in caliber and demonstrates standard 3-vessel arch anatomy. No dissection is seen. Pulmonary vasculature: The pulmonary trunk is normal in caliber. There are no filling defects identified in the central pulmonary vessels to indicate pulmonary embolus. Note that this examination was not protocoled for evaluation of the pulmonary arteries. Heart: A left subclavian central venous infusion port is in place. The heart is mildly enlarged noting trace pericardial effusion. Lungs and pleural spaces: There is no airspace consolidation or pleural effusion. Calcified granulomas are incidentally noted. The trachea and central airways are clear. Mediastinum: There are calcified mediastinal nodes. No mediastinal lymphadenopa thy is seen. Sheree: There are calcified right hilar nodes. No hilar adenopathy is identified. Axillae: There is no axillary lymphadenopathy. Upper abdomen: The liver appears steatotic. The spleen is normal in size, measuring 9.4 cm in length. A small hiatal hernia is noted. Skeletal structures: The skeletal structures are osteopenic. No lytic or blastic bony lesions are seen. Degenerative change and mild hyperkyphosis is noted in the thoracic spine. IMPRESSION: 1. The lungs are clear. 2. No thoracic lymphadenopathy is identified. 3. Cardiomegaly. 4. Hepatic steatosis. 5. Additional findings as above. ACT 112: Negative or not required by law. Electronically signed by: Irvin Martinez M.D. 05/25/2022 3:04 PM 05/26/22 ECHOCARDIOGRAM -- Compared to 07/05/20, LV no longer hyperdynamic, mild-mod TR now seen, IVC dilated. EF 55-60% Hip CT 05/26/22 12:04 CT SCAN OF THE LEFT HIP WITHOUT IV CONTRAST CLINICAL HISTORY: Fever. Hip replacement. COMPARISON STUDY: Pelvic CT dated 05/25/2022. TECHNIQUE: CT scan of the left hip is performed from the bony pelvis to the proximal femur. Images are reviewed in the axial, sagittal, and coronal planes. IV contrast was not administered for this examination. A dose lowering technique was utilized adhering to the principles of ALARA. The examination is degraded by streak artifact from a left hip arthroplasty. FINDINGS: The skeletal structures are osteopenic. A bipolar left hip arthroplasty is in place. No periprosthetic lucency is identified. No acute fracture is seen. No bony erosion or periostitis is identified. There is no CT evidence of hip joint effusion. The overlying soft tissues are normal in appearance. There is no left pelvic sidewall or inguinal lymphadenopathy. The regional musculature is normal in appearance. There is no soft tissue gas. Excreted IV contrast is noted within the decompressed bladder. IMPRESSION: 1. No acute bony or soft tissue abnormality is identified. 2. A left hip arthroplasty is in place. ACT 112: Negative or not required by law. Electronically signed by: Irvin Martinez M.D. 05/26/2022 12:52 PM Liver Ultrasound 05/26/22 14:18 US liver CLINICAL HISTORY: GB sludge, fever, eval TECHNIQUE: Multiple real-time sonographic images of the right upper quadrant were obtained. Comparison: None available at the time of this dictation. FINDINGS: The liver is diffusely echogenic in appearance with poor ultrasound penetration, with normal contour, which is consistent with fatty infiltration. Focal fatty sparing seen about the gallbladder fossa. No intrahepatic ductal dilatation is seen. Low level internal echoes are identified layering dependently within the gallbladder, which is consistent with gallbladder sludge. The gallbladder wall is not thickened. There is no pericholecystic fluid present. A sonographic Covington's sign was not elicited by the service plumber. The common duct measures 0.4 cm in diameter at the level of the hepatic artery. The visualized portions of the pancreas appear normal. The right kidney shows normal echogenicity, cortical thickness and renal contour. The right kidney shows no evidence of hydronephrosis or mass. No ascites or free fluid is seen in Mello's pouch. IMPRESSION: Unremarkable right upper quadrant ultrasound. ACT 112: Negative or not required by law. Electronically signed by: Jose Tom M.D. 05/27/2022 9:01 AM Hospital Course (1) Fever: Viral versus bacterial sepsis in the setting of an immunocompromised patient Fever of unknown origin (of note, patient on multiple rounds of abx over past 6 weeks, ~ 4 different courses, negative cultures difficult to interpret currently however no obvious infectious etiology at this time) ABx on admit : cefepime, Doxy IV and PO Vanco given hx c.diff w/ recurrence Lyme negative, anaplasmosis smear negative, PCR pending but ID d/c Doxy given emesis and testing Biofire negative Stool PCR/cdiff NEGATIVE Procal 0.05 Blood cultures remain NGTD Fungitel NEGATIVE Hep panel negative, CMV nonreactive, EBV suggestive of prior infection Fever 39C on 05/25 @16:48, nothing further ID, Heme/onc consulted CT Chest w/ resolution in prior GGO seen, no abn/infectious etiology Of note, did discuss w/ pulm inpatient, no concerns for possible TB given prior granulomatous disease on imaging given subsequent CT chest w/ resolution CT Abd/Pelvis w/o significant ab to explain CT LEFT hip done given hardward, no concerns for infection Of note, prior GB sludge --> RUQ US for further eval given issues w/ spicy/fatty foods and RUQ tenderness/under ribs -- NEGATIVE, but did not sludge. Consider HIDA in f/u if ongoing issues as discussed w/ patient did send rx for pepcid to be used as needed Per ID, Cefepime x 5 days, then stopped Has not had fever since that time, stable for discharge however important to note that patient had been on multiple rounds abx recently for respiratory process and cultures could be falsely negative ?if viral mediated vs related to underlying malignancy, vs possible related to her port however did not appear infected -- consideration in f/u for removal if ongoing issues as well Patient has f/u appt in [place] this w/ Heme/onc -- burnt disc for patient as well as called radiology to push imaging to [place] as well for review (2) MDS (myelodysplastic syndrome): MDS Hgb <7 on admit. Does get q1-2 wk infusions outpatient 2u PRBC on admit w/ repeat hgb 8.3 Plt to 10 prior to dc and discussed w/ Dr Vidal, ordered unit of platelets w/ her usual pre-med benadryl/tylenol/hydrocortisone Did have some slight brusing her shins, R elbow, but no active bleeding/cuts and Hgb remained stable even w/ IVF at 8.2 (exception bleeding -- subconjunctival hem from n/v from abx use w/ doxy earlier in the stay) Posttreatment myelodysplastic syndrome Noted 05/2021 Bone marrow biopsy with multilineage dysplasia Following with C for consideration of allogenic transplant from son versus immunity transplant. 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 difficile while with biotics Empiric Vanco PO 125,mg BID Reporting BM x 5 in AM 05/25 -- checked stool biofire/cdiff testing -- NEGATIVE If any recurrance in future, patient likely would benefit from Dificid Of note, no prior sx of significant bloating/cramping like she had with prior infections (5) Pancytopenia: as above, stable (6) Nausea and vomiting: morning 05/26 following doxycycline use doxy d/c by ID as possible cause added zofran prn, has not required start pepcid IVP daily while on abx , consideration for PPI if needed/ineffective (she declined that this morning, did have some reflux but thought from abx but discussed available if needed) --> discussed w/ patient/ and rx for pepcid at dc to use as needed for control of symptoms RUQ US unrevealing, can consider HIDA outpt off abx for further eval EF (7) Subconjunctival hemorrhage: suspected 2nd to nausea/vomiting after PO Doxy use 05/26, stable and plt stable 14-->13k, no further bleeding No loss of vision/change in vision however is slightly painful ice/heat declined 05/27 but requested later and RN to provide stable at present and improving -- to f/u ophth if persistent >2wks outpatient or worsened Continue to monitor DVT prophylaxis: Pharmacal prophylaxis contraindicated due to thrombocytopenia and anemia Plan discharge ordered after patient receiving unit of platelets if no issues f/u heme/onc in [place] on Total Time Total Time Spent Total Time Spent (In Minutes): 50 Discharge Plan Discharge Items Patient Disposition: Home - Self-Care Reason For Visit: NEUTROPENIC FEVER Discharge Diagnosis: Fever of Unknown Origin Goals: You have been hospitalized for an acute medical problem. During your stay at [facility], we have made an effort to correct the problem that brought you to the hospital while keeping you as comfortable as possible. Medications were used to bring your condition under control and your discharge instructions will include directions for any medications you should take after leaving the hospital. Please make sure you see your Primary Care Provider as part of your follow up plan. Activity: Resume your previous activity Non-emergency contact: Primary Care Provider and Oncologist Call non-emergency contact if: you have any medication questions, your symptoms worsen and you have a fever Follow-up/Referrals: Marlene Barnett MD [Primary Care Provider] - 06/06/22 11:30 am Diet: Regular Addtl Attending Provider Instructions: You have been hospitalized for a fever. We have treated with broad spectrum antibiotics and imaging with CT of the chest, abdomen, and hip were unrevealing. Viral respiratory panel was negative, stool studies were negative. Blood cultures remain negative. We have stopped antibiotics and monitored for any fevers per recommendation by infectious disease, however it is important to note that your multiple rounds of antibiotics before admission could have made these falsely negative, or this could be from another viral or fungal process. I did have pulmonary medicine look at CT chest imaging and they feel nothing to worry about at this time regarding possible TB/granulomas since repeat imaging has resolved prior findings. You have send out testing fungitell (for fungal infections, and this resulted prior to discharge and was NEGATIVE) and anaplasmosis (but initial testing and Lyme were both negative) which is pending at discharge.. We have burned disc for imaging to take in follow up with Heme/Onc at [place] this upcoming week, but discussions may include possible removal of the port as a possible source for infection however no obvious infection observed on examination. I have also called radiology to push the imaging to [place] as well. You should follow up with eye doctor if your symptoms to the left eye do not resolve within two weeks from occurrence but typically this is just watched unless worsens. I have sent in a prescription for pepcid for reflux symptoms which can be taken 30 minutes before meals, and this can also be used as needed. Please note imaging was negative for gallbladder pathology, however I do suspect this will need continued monitoring and possible HIDA scan as an outpatient to eval for possible smoldering gallbladder off antibiotics. Please follow up with primary care and your lease administration analyst/oncologist this week to monitor your status after discharge for further evaluation. Please return to the ER with any repeat fevers or for any symptoms outside of your normal/concerning for you. It has been a pleasure being a part of the medical team providing for you while you have been in the hospital. Take care! Pending Studies at Discharge: Yes Studies:: Anaplasmosis PCR Stand-Alone Forms: My [facility] [place], Smoking Cessation Medications and DC Order Prescriptions: New famotidine [Pepcid] 20 mg tablet 20 mg PO DAILY Qty: 30 0RF Continued cholecalciferol (vitamin D3) 1,250 mcg (50,000 unit) capsule 50,000 unit PO 2XWK Rx Instructions: wed, sat L. acidophilus/Bifid. animalis 2 billion cell capsule 1 cap PO DAILY Rx Instructions: with vit c, chaparro, zinc acetaminophen [Tylenol Extra Strength] 500 mg Tablet 1,000 mg PO DIRECTED PRN (Reason: Pain) folic acid 1 mg Tablet 1 mg PO DAILY Discontinued prednisone 20 mg tablet See Rx Instructions PO .COMPLEX Qty: 30 0RF Rx Instructions: 3 tabs PO daily X 5 days, then 2 tabs PO daily X 5 days, then 1 tab PO daily X 5 days, then stop. benzonatate [Tessalon Perles] 100 mg Capsule 100 mg PO TID PRN (Reason: Cough) Discharge Orders: Discharge Order (Routine); Ordered 05/29/22 Ordered By: Sherlyn Hanson Admission Data Admit Date/Time: 05/24/22 15:39 Attending Provider: Darnell Brothers Admit Provider: Micah Hurst Primary Care Provider: Marlene Barnett Other Providers: Autumn Villatoro ; Jossue Spear ; Lola Thrasher ; Jami Small ; Xuan Russell ; Karyna Ramirez ; Stephany Dumont ; Angle Wells ; Rachel Denise ; Shun Vidal Coding Level of Care Code 26233 INP/OBS DISCH >30 MIN Diagnoses Fever R50.9 MDS (myelodysplastic syndrome) D46.9 Lymphoma C85.90 History of Clostridioides difficile infection Z86.19 Pancytopenia D61.818 Nausea and vomiting R11.2 Subconjunctival hemorrhage H11.30
== END 2022-05-29 14:52 | disposition home or self-care (01) | DRG 872 ==
LOC: 2W 15:39 → SUATTDRO 15:39

== ENCOUNTER 2022-06-09 10:34 | Observation (INO) ==
[2022-06-09] MEDS ORDERED: SODIUM CHLORIDE 0.9% 1000ML 1,000 ML IV SCH (11:15)
--- NOTE | 2022-06-09 11:22 | Emergency Department Note ---
History of Present Illness General Chief complaint: Infection Stated complaint: POSSIBLE CDIFF Time Seen by Provider: 06/09/22 11:02 History of Present Illness This is a 66-year-old female that presents to the emergency department via private vehicle accompanied by with complaints of "possible C. diffici le". The patient notes that since this past Monday she began with frequent small well-formed stools and then this past Monday progressed to loose diarrhea. She notes that she has had diarrhea almost every 10 minutes since that time. She notes very little oral intake of food since that time noting that every time she attempts to eat, the diarrhea is significant. She does note recent antibiotic use about 2 weeks ago while hospitalized. She notes history of C. difficile previously and this feels similar. She feels a pressure to the rectal region. She notes some mild abdominal discomfort. She notes history of colon resection. She has a history of MDS. She notes she did have 2 units of blood transfused this past Monday. No fevers today. Home Medications Medication Instructions Recorded Confirmed Type acetaminophen 500 mg tablet 1,000 mg PO DIRECTED PRN Pain 10/26/18 06/09/22 History (Tylenol Extra Strength) cholecalciferol (vitamin D3) 1,250 50,000 unit PO 2XWK 09/16/20 06/09/22 History mcg (50,000 unit) capsule Lactobacillus 1 cap PO DAILY 10/15/20 06/09/22 History acidophilus-Bifidobac.animalis 2 billion cell capsule folic acid 1 mg tablet 1 mg PO DAILY 06/23/21 06/09/22 History famotidine 20 mg tablet (Pepcid) 20 mg PO DAILY #30 tabs 05/29/22 06/09/22 Rx diphenhydramine HCl 25 mg capsule 25 mg PO DIRECTED PRN .before 06/09/22 06/09/22 History (Benadryl) transfusions Allergies Allergy/AdvReac Type Severity Reaction Status Date / Time hydromorphone [From Dilaudid] Allergy Severe Hallucinati Verified 06/09/22 13:01 ng latex Allergy Severe SYSTEMIC Verified 06/09/22 13:01 ALLERGIC RESPONSE Penicillins Allergy Severe HIVES,DIFF. Verified 06/09/22 13:01 BREATHING codeine AdvReac Intermediate INDUCES Verified 06/09/22 13:01 MIGRAINE HEADACHES verapamil AdvReac Mild very sleepy Verified 06/09/22 13:01 morphine AdvReac Migraine Verified 06/09/22 13:01 Past Med/Surg History Medical History A-fib remote hx of idiopathic pericarditis and transient a. fib (2016)- advised by cardiology 10/2016 to f/u PRN Anemia hgb stable in the 10-11 range Anxiety prior to procedures Bronchitis Delayed recovery from anesthesia GERD (gastroesophageal reflux disease) r/t chemo History of recent steroid use per RN phone interview, prednisone for first 5 days of 28 days chemo cycle/did not indicate last use History of thrombocytopenia fluctuating platelets since leukemia diagnosis/chemo treatments Hypertension Leukemia dx 10/2018 Migraine Osteoarthritis Peripheral neuropathy R/L hands, feet Port-A-Cath in place (04/25/19) Insertion of Mediport Left Subclavian Dr. Hinton 04/25/19 Sleep apnea "no official diagnosis" per RN phone interview/no further details- ?DEMOND Vitamin D deficiency Surgical History H/O section X2 History of bone marrow biopsy History of colon resection History of colonoscopy History of total hip arthroplasty LEFT S/P breast biopsy bilat S/P PICC central line placement DOUBLE LUMEN > OCT 2018> RIGHT ARM Family History Mother Cancer Breast cancer Brother Cancer Heart disease Social History Smoking Status: Never smoker Second Hand Exposure: No; Hx Alcohol Use: No Hx Substance Use: No Preferred Language: Khmer Communication Ability: Effective Professor Of Physics Required: No Beliefs That Will Affect Care: None marital status: Current Living Situation: Alone Other Information That Helps Us Care for You: No Feels Safe at Home: Yes Safety Concerns: Feels Safe At This Time Assistive Devices: Glasses Review of Systems A total of 10 systems reviewed and were otherwise negative Physical Exam Vital Signs Vital Signs - 24 hr 06/09/22 10:37 06/09/22 11:47 06/09/22 12:32 Temperature 36.8 C Temperature Source Temporal Artery Scan Pulse Rate 103 H 84 Respiratory Rate 20 15 Respiratory Effort / Characteristics Non-Labored Respiratory Depth Normal Blood Pressure 135/69 Blood Pressure Mean 91 Pulse Oximetry 96 98 Oxygen Delivery Method Room Air Room Air Sepsis Recent Fever Within 48 Hours No Sepsis New/Unexplained Change in Mental Status N/A Sepsis Action Taken by Nursing No Action Required VITAL SIGNS - Vital signs and triage nursing notes were reviewed. Stable and afebrile. GENERAL -66-year-old female appearing her stated age who is in no acute distress. Communicates well with provider and answers questions appropriately. SKIN - Without rashes. No meningeal or petechial rash. HEAD - NC/AT. EYES - Sclera anicteric. NOSE - Midline and without cyanosis. MOUTH/OROPHARYNX - Without perioral cyanosis. NECK - No nuchal rigidity. LUNGS - Chest wall symmetric without accessory muscle use, intercostals retractions, or central cyanosis. Normal vesicular breath sounds CTA B/L. No wheezes, rales, or rhonchi appreciated. CARDIAC - RRR with S1/S2. No murmur, rubs, or gallops appreciated. ABDOMEN - Abdominal contour normal without pulsations or visible masses. BS normoactive all four quadrants. No tenderness, palpable masses, hepatosplenomegaly, or ascites noted. EXTREMITIES - No clubbing or peripheral cyanosis. +5/5 strength noted in UE/LE bilaterally. NEUROLOGIC - Cranial nerves grossly intact. PSYCH - A&Ox3 Course Administered Medications Raspberry (Raspberry Syrup 5 Ml Udp) 5 ml PO Q6 EDWIN Stop: 06/19/22 17:59 Last Admin: 06/09/22 18:45 Dose: 5 ml Documented By: MYNOR Vancomycin HCl (Vancomycin Hcl 125 Mg/2.5ml Soln) 125 mg PO Q6 EDWIN Stop: 06/19/22 17:59 Last Admin: 06/09/22 18:45 Dose: 125 mg Documented By: MYNOR Discontinued Medications Sodium Chloride (Nss 1000ml) 1,000 mls @ 100 mls/hr IV .Q10H EDWIN Stop: 07/09/22 11:14 Last Infusion: 06/09/22 17:26 Dose: 0 mls/hr Documented By: Admin: 06/09/22 11:55 Dose: 100 mls/hr Documented By: KETURAH Raspberry (Raspberry Syrup 5 Ml Udp) 5 ml PO ONE STA Stop: 06/09/22 14:55 Last Admin: 06/09/22 15:24 Dose: 5 ml Documented By: KETURAH Vancomycin HCl (Vancomycin Hcl 125 Mg/2.5ml Soln) 125 mg PO ONE STA Stop: 06/09/22 14:55 Last Admin: 06/09/22 15:24 Dose: 125 mg Documented By: KETURAH Medical Decision Making Laboratory Data 06/09/22 11:30 06/09/22 11:30 Lab Results 06/09/22 06/09/22 06/09/22 Range/Units 11:30 11:30 11:30 WBC 3.84 L (4.8-10.8) K/ul RBC 3.15 L (4.20-5.40) M/uL Hgb 9.5 L (12.0-16.0) g/dl Hct 27.1 L (37.0-47.0) % MCV 86.0 (80.0-100.0) fL MCH 30.2 (25.0-34.0) pg MCHC 35.1 (32.0-36.0) g/dL RDW Std Deviation 42.7 (36.4-46.3) fL RDW Coeff of Garcia 13.8 (11.5-14.5) % Plt Count 9 L* (130-400) K/uL Immature Gran % (Auto) 3.6 % Neut % (Auto) 53.2 % Lymph % (Auto) 29.7 % [place] % (Auto) 10.7 % Eos % (Auto) 0.5 % Baso % (Auto) 2.3 % Neut # (Auto) 2.04 (1.40-6.50) K/uL Lymph # (Auto) 1.14 L (1.2-3.4) K/uL [place] # (Auto) 0.41 (0.11-0.59) K/uL Eos # (Auto) 0.02 (0-0.50) K/uL Baso # (Auto) 0.09 (0-0.2) K/uL Immature Gran # (Auto) 0.14 (0.01-0.20) K/uL PT 11.2 (9.0-12.0) Seconds INR 1.1 (0.9-1.1) APTT 35.0 H (21.0-31.0) Seconds PTT Ratio 1.3 Sodium 137 (136-145) mmol/L Potassium 4.0 (3.5-5.1) mmol/L Chloride 102 (98-107) mmol/L Carbon Dioxide 27 (21-32) mmol/L Anion Gap 8 (3-11) BUN 15 (6-23) mg/dl Creatinine 0.79 (0.6-1.2) mg/dl Est Cr Clr Drug Dosing 62.9 ml/min Est GFR ( Amer) 89.8 ml/min Est GFR (Non-Af Amer) 77.5 ml/min BUN/Creatinine Ratio 19.0 (10-20) Glucose 90 (70-99(Fasting)) mg/dl Lactate (0.4-2.0) mmol/L Calcium 9.1 (8.6-10.3) mg/dl Magnesium 1.9 (1.7-2.4) mg/dl Total Bilirubin 1.1 H (0.2-1.0) mg/dl AST 11 L (13-39) U/L ALT 10 (7-52) U/L Alkaline Phosphatase 55 (34-104) U/L Total Protein 7.0 (6.0-8.3) gm/dl Albumin 3.9 (3.4-5.0) gm/dl Globulin 3.1 (2.5-4.0) gm/dl Albumin/Globulin Ratio 1.3 (0.9-2) Lipase 6 L (11-82) U/L Procalcitonin (0-0.5) ng/ml Urine Color Urine Appearance (Clear) Urine pH (4.5-7.5) Ur Specific [place] (1.000-1.030) Urine Protein (Negative) Urine Glucose (UA) (Negative) Urine Ketones (Negative) Urine Blood (Negative) Urine Nitrite (Negative) Urine Bilirubin (Negative) Urine Urobilinogen (Negative) Ur Leukocyte Esterase (Negative) Urine WBC (Auto) (0-5) /hpf Urine RBC (Auto) (0-4) /hpf U Hyaline Cast (Auto) (0-5) /lpf U Epithel Cells (Auto) (0-5) /lpf Urine Bacteria (Auto) (Negative) Stl C. cayetanensis PCR (NotDetected) Stool Rotavirus A PCR (NotDetected) Stl Adenov F 40/41 PCR (NotDetected) Stool Astrovirus (PCR) (NotDetected) Stool Campylobacter PCR (NotDetected) Stl C. diff Tox B Gene (Neg) Stl C.difficile Tox A&B (Negative) Stool Cryptosporidium PCR (NotDetected) Stl E.coli Shiga Tox PCR (NotDetected) Stl Enterotoxigenic E PCR (NotDetected) Stool EPEC (PCR) (NotDetected) Stool EAEC (PCR) (NotDetected) Stl E. histolytica PCR (NotDetected) Stool Giardia Lamblia PCR (NotDetected) Stool Salmonella PCR (NotDetected) Stool Sapovirus (PCR) (NotDetected) Stl P. shigelloides PCR (NotDetected) Stl Shigella/EIEC PCR (NotDetected) St Y.enterocolitica PCR (NotDetected) Stool Vibrio (PCR) (NotDetected) Stl Vibrio cholerae PCR (NotDetected) Stl Norovirus GI/GII PCR (NotDetected) Adenovirus (PCR) (NotDetected) B. pertussis DNA (PCR) (NotDetected) B.parapertussis DNA PCR (NotDetected) C. pneumoniae DNA (PCR) (NotDetected) Coronavirus OC43 (PCR) (NotDetected) Coronavirus HKU1 (PCR) (NotDetected) Coronavirus 229E (PCR) (NotDetected) SARS-CoV-2 (PCR) (NotDetected) Coronavirus NL63 (PCR) (NotDetected) Human Metapneumovir PCR (NotDetected) Influenza Type A (PCR) (NotDetected) Influenza Type B (PCR) (NotDetected) M. pneumoniae (PCR) (NotDetected) Parainfluenza 1 (PCR) (NotDetected) Parainfluenza 2 (PCR) (NotDetected) Parainfluenza 3 (PCR) (NotDetected) Parainfluenza 4 (PCR) (NotDetected) RSV (PCR) (NotDetected) Entero/Rhino (PCR) (NotDetected) 06/09/22 06/09/22 06/09/22 Range/Units 11:30 11:41 11:45 WBC (4.8-10.8) K/ul RBC (4.20-5.40) M/uL Hgb (12.0-16.0) g/dl Hct (37.0-47.0) % MCV (80.0-100.0) fL MCH (25.0-34.0) pg MCHC (32.0-36.0) g/dL RDW Std Deviation (36.4-46.3) fL RDW Coeff of Garcia (11.5-14.5) % Plt Count (130-400) K/uL Immature Gran % (Auto) % Neut % (Auto) % Lymph % (Auto) % [place] % (Auto) % Eos % (Auto) % Baso % (Auto) % Neut # (Auto) (1.40-6.50) K/uL Lymph # (Auto) (1.2-3.4) K/uL [place] # (Auto) (0.11-0.59) K/uL Eos # (Auto) (0-0.50) K/uL Baso # (Auto) (0-0.2) K/uL Immature Gran # (Auto) (0.01-0.20) K/uL PT (9.0-12.0) Seconds INR (0.9-1.1) APTT (21.0-31.0) Seconds PTT Ratio Sodium (136-145) mmol/L Potassium (3.5-5.1) mmol/L Chloride (98-107) mmol/L Carbon Dioxide (21-32) mmol/L Anion Gap (3-11) BUN (6-23) mg/dl Creatinine (0.6-1.2) mg/dl Est Cr Clr Drug Dosing ml/min Est GFR ( Amer) ml/min Est GFR (Non-Af Amer) ml/min BUN/Creatinine Ratio (10-20) Glucose (70-99(Fasting)) mg/dl Lactate 0.8 (0.4-2.0) mmol/L Calcium (8.6-10.3) mg/dl Magnesium (1.7-2.4) mg/dl Total Bilirubin (0.2-1.0) mg/dl AST (13-39) U/L ALT (7-52) U/L Alkaline Phosphatase (34-104) U/L Total Protein (6.0-8.3) gm/dl Albumin (3.4-5.0) gm/dl Globulin (2.5-4.0) gm/dl Albumin/Globulin Ratio (0.9-2) Lipase (11-82) U/L Procalcitonin 0.05 (0-0.5) ng/ml Urine Color Urine Appearance (Clear) Urine pH (4.5-7.5) Ur Specific [place] (1.000-1.030) Urine Protein (Negative) Urine Glucose (UA) (Negative) Urine Ketones (Negative) Urine Blood (Negative) Urine Nitrite (Negative) Urine Bilirubin (Negative) Urine Urobilinogen (Negative) Ur Leukocyte Esterase (Negative) Urine WBC (Auto) (0-5) /hpf Urine RBC (Auto) (0-4) /hpf U Hyaline Cast (Auto) (0-5) /lpf U Epithel Cells (Auto) (0-5) /lpf Urine Bacteria (Auto) (Negative) Stl C. cayetanensis PCR (NotDetected) Stool Rotavirus A PCR (NotDetected) Stl Adenov F 40/41 PCR (NotDetected) Stool Astrovirus (PCR) (NotDetected) Stool Campylobacter PCR (NotDetected) Stl C. diff Tox B Gene Positive Cdiff Gene H (Neg) Stl C.difficile Tox A&B Positive Cdiff Toxin A* (Negative) Stool Cryptosporidium PCR (NotDetected) Stl E.coli Shiga Tox PCR (NotDetected) Stl Enterotoxigenic E PCR (NotDetected) Stool EPEC (PCR) (NotDetected) Stool EAEC (PCR) (NotDetected) Stl E. histolytica PCR (NotDetected) Stool Giardia Lamblia PCR (NotDetected) Stool Salmonella PCR (NotDetected) Stool Sapovirus (PCR) (NotDetected) Stl P. shigelloides PCR (NotDetected) Stl Shigella/EIEC PCR (NotDetected) St Y.enterocolitica PCR (NotDetected) Stool Vibrio (PCR) (NotDetected) Stl Vibrio cholerae PCR (NotDetected) Stl Norovirus GI/GII PCR (NotDetected) Adenovirus (PCR) (NotDetected) B. pertussis DNA (PCR) (NotDetected) B.parapertussis DNA PCR (NotDetected) C. pneumoniae DNA (PCR) (NotDetected) Coronavirus OC43 (PCR) (NotDetected) Coronavirus HKU1 (PCR) (NotDetected) Coronavirus 229E (PCR) (NotDetected) SARS-CoV-2 (PCR) (NotDetected) Coronavirus NL63 (PCR) (NotDetected) Human Metapneumovir PCR (NotDetected) Influenza Type A (PCR) (NotDetected) Influenza Type B (PCR) (NotDetected) M. pneumoniae (PCR) (NotDetected) Parainfluenza 1 (PCR) (NotDetected) Parainfluenza 2 (PCR) (NotDetected) Parainfluenza 3 (PCR) (NotDetected) Parainfluenza 4 (PCR) (NotDetected) RSV (PCR) (NotDetected) Entero/Rhino (PCR) (NotDetected) 06/09/22 06/09/22 06/09/22 Range/Units 11:45 11:50 13:05 WBC (4.8-10.8) K/ul RBC (4.20-5.40) M/uL Hgb (12.0-16.0) g/dl Hct (37.0-47.0) % MCV (80.0-100.0) fL MCH (25.0-34.0) pg MCHC (32.0-36.0) g/dL RDW Std Deviation (36.4-46.3) fL RDW Coeff of Garcia (11.5-14.5) % Plt Count (130-400) K/uL Immature Gran % (Auto) % Neut % (Auto) % Lymph % (Auto) % [place] % (Auto) % Eos % (Auto) % Baso % (Auto) % Neut # (Auto) (1.40-6.50) K/uL Lymph # (Auto) (1.2-3.4) K/uL [place] # (Auto) (0.11-0.59) K/uL Eos # (Auto) (0-0.50) K/uL Baso # (Auto) (0-0.2) K/uL Immature Gran # (Auto) (0.01-0.20) K/uL PT (9.0-12.0) Seconds INR (0.9-1.1) APTT (21.0-31.0) Seconds PTT Ratio Sodium (136-145) mmol/L Potassium (3.5-5.1) mmol/L Chloride (98-107) mmol/L Carbon Dioxide (21-32) mmol/L Anion Gap (3-11) BUN (6-23) mg/dl Creatinine (0.6-1.2) mg/dl Est Cr Clr Drug Dosing ml/min Est GFR ( Amer) ml/min Est GFR (Non-Af Amer) ml/min BUN/Creatinine Ratio (10-20) Glucose (70-99(Fasting)) mg/dl Lactate (0.4-2.0) mmol/L Calcium (8.6-10.3) mg/dl Magnesium (1.7-2.4) mg/dl Total Bilirubin (0.2-1.0) mg/dl AST (13-39) U/L ALT (7-52) U/L Alkaline Phosphatase (34-104) U/L Total Protein (6.0-8.3) gm/dl Albumin (3.4-5.0) gm/dl Globulin (2.5-4.0) gm/dl Albumin/Globulin Ratio (0.9-2) Lipase (11-82) U/L Procalcitonin (0-0.5) ng/ml Urine Color Yellow Urine Appearance Clear (Clear) Urine pH 5.5 (4.5-7.5) Ur Specific [place] 1.019 (1.000-1.030) Urine Protein Trace H (Negative) Urine Glucose (UA) Negative (Negative) Urine Ketones Trace H (Negative) Urine Blood 2+ H (Negative) Urine Nitrite Negative (Negative) Urine Bilirubin Negative (Negative) Urine Urobilinogen Negative (Negative) Ur Leukocyte Esterase Negative (Negative) Urine WBC (Auto) 1-5 (0-5) /hpf Urine RBC (Auto) 5-10 H (0-4) /hpf U Hyaline Cast (Auto) 1-5 (0-5) /lpf U Epithel Cells (Auto) 5-10 H (0-5) /lpf Urine Bacteria (Auto) Negative (Negative) Stl C. cayetanensis PCR Not Detected (NotDetected) Stool Rotavirus A PCR Not Detected (NotDetected) Stl Adenov F 40/41 PCR Not Detected (NotDetected) Stool Astrovirus (PCR) Not Detected (NotDetected) Stool Campylobacter PCR Not Detected (NotDetected) Stl C. diff Tox B Gene (Neg) Stl C.difficile Tox A&B (Negative) Stool Cryptosporidium PCR Not Detected (NotDetected) Stl E.coli Shiga Tox PCR Not Detected (NotDetected) Stl Enterotoxigenic E PCR Not Detected (NotDetected) Stool EPEC (PCR) Not Detected (NotDetected) Stool EAEC (PCR) Not Detected (NotDetected) Stl E. histolytica PCR Not Detected (NotDetected) Stool Giardia Lamblia PCR Not Detected (NotDetected) Stool Salmonella PCR Not Detected (NotDetected) Stool Sapovirus (PCR) Not Detected (NotDetected) Stl P. shigelloides PCR Not Detected (NotDetected) Stl Shigella/EIEC PCR Not Detected (NotDetected) St Y.enterocolitica PCR Not Detected (NotDetected) Stool Vibrio (PCR) Not Detected (NotDetected) Stl Vibrio cholerae PCR Not Detected (NotDetected) Stl Norovirus GI/GII PCR Not Detected (NotDetected) Adenovirus (PCR) Not Detected (NotDetected) B. pertussis DNA (PCR) Not Detected (NotDetected) B.parapertussis DNA PCR Not Detected (NotDetected) C. pneumoniae DNA (PCR) Not Detected (NotDetected) Coronavirus OC43 (PCR) Not Detected (NotDetected) Coronavirus HKU1 (PCR) Not Detected (NotDetected) Coronavirus 229E (PCR) Not Detected (NotDetected) SARS-CoV-2 (PCR) Not Detected (NotDetected) Coronavirus NL63 (PCR) Not Detected (NotDetected) Human Metapneumovir PCR Not Detected (NotDetected) Influenza Type A (PCR) Not Detected (NotDetected) Influenza Type B (PCR) Not Detected (NotDetected) M. pneumoniae (PCR) Not Detected (NotDetected) Parainfluenza 1 (PCR) Not Detected (NotDetected) Parainfluenza 2 (PCR) Not Detected (NotDetected) Parainfluenza 3 (PCR) Not Detected (NotDetected) Parainfluenza 4 (PCR) Not Detected (NotDetected) RSV (PCR) Not Detected (NotDetected) Entero/Rhino (PCR) Not Detected (NotDetected) MDM Narrative Patient was seen and evaluated as above in room C08. Review was performed of triage nursing notes and vital signs. After obtaining a thorough history and physical examination the above work up was performed. Patient presents today for assessment of diarrhea. She clinically is well-appearing and nontoxic. She has a history of C. difficile. She notes that this feels similar. She was recently on IV antibiotics. Options of care were discussed with the patient. IV access was established. Labs were drawn. There is no leukocytosis. There is anemia present but a ctually improved compared to previous. There is thrombocytopenia at 9. Patient does note a pressure-like sensation to the rectal region however digital rectal examination was deferred noting platelet count of 9. Coags are without emergent process. Metabolic panel without emergent process. Mild T. bili elevation at 1.1. Procalcitonin within normal range. Lactate is normal. Blood cultures pe nding. Urinalysis reveals 2+ blood but no evidence of infection. Stool panel negative but will note positive C. difficile toxin gene. Reflex C. difficile testing pending. Bio fire panel negative. She has a benign abdominal examination. At this time we will hold off on abdominal imaging. I do believe the patient would benefit from further evaluation and management in the inpatient setting. There is concerned that there is blood in the patient's stool noting its appearance with formal Hemoccult testing pending. I discussed the patient's low platelet count with the patient's established physician, Dr. Kan. At this time we will proceed with single donor platelet pack x1 irradiated and leukoreduced. Recheck platelet count in 45 minutes and if still below 20,000 will proceed with another. It is recommended to watch platelets every 12 hours x36 hours and then repeat transfusion if needed. This was relayed to the medicine team. Please refer to further documentation regarding h er stay. Later in her stay and she returned positive for C. difficile toxin A. Patient amenable to plan of care. Case was discussed with the attending physician. GCS: 15 In the evaluation and treatment of this patient the following differential diagnoses were entertained: Acute GI bleed, C. difficile colitis, bowel obstruction, anemia, thrombocytopenia, among others. Impression & Plan C. difficile colitis, Thrombocytopenia, Anemia, Diarrhea Discharge Plan Visit Data Chief Complaint: Infection Stated Complaint: POSSIBLE CDIFF ED Provider: Allen Roe ED Midlevel Provider: Abimael Robertson Discharge Problem: C. difficile colitis, Thrombocytopenia, Anemia, Diarrhea Patient Disposition: Admitted As Inpatient Condition: Good Discharge Instructions Interventions: ED Discharge Assessment Last Done: 06/09/22 16:18
[2022-06-09 12:19] LABS: Albumin Globulin Ratio 1.3 (0.9-2); Albumin Level 3.9 gm/dl (3.4-5.0); Bilirubin,Total 1.1 mg/dl (0.2-1.0); Calcium 9.1 mg/dl (8.6-10.3); Creatinine Clr Calc Pharmacy 62.9 ml/min; Est GFR (African American) 89.8 ml/min; Est GFR (Non-African American) 77.5 ml/min; Globulin 3.1 gm/dl (2.5-4.0); Magnesium 1.9 mg/dl (1.7-2.4)
[2022-06-09 12:31] LABS: Hematocrit (blood only) 27.1 % (37.0-47.0); Hemoglobin 9.5 g/dl (12.0-16.0); Mean Corpuscular Hemoglobin 30.2 pg (25.0-34.0); Mean Corpuscular Hgb Conc 35.1 g/dL (32.0-36.0); Platelet Count 9 K/uL (130-400); RDW Coefficient of Variation 13.8 % (11.5-14.5); RDW Standard Deviation 42.7 fL (36.4-46.3); Red Blood Count 3.15 M/uL (4.20-5.40); White Blood Count 3.84 K/ul (4.8-10.8)
[2022-06-09 12:32] LABS: INR 1.1 (0.9-1.1); Partial Thromboplastin Ratio 1.3; Prothrombin Time 11.2 Seconds (9.0-12.0)
[2022-06-09 12:52] LABS: Basophils # (auto) 0.09 K/uL (0-0.2); Basophils % (auto) 2.3 %; Eosinophils # (auto) 0.02 K/uL (0-0.50); Eosinophils % (auto) 0.5 %; Immature Granulocytes # (auto) 0.14 K/uL (0.01-0.20); Immature Granulocytes % (auto) 3.6 %; Lymphocytes # (auto) 1.14 K/uL (1.2-3.4); Lymphocytes % (auto) 29.7 %; Monocytes # (auto) 0.41 K/uL (0.11-0.59); Monocytes % (auto) 10.7 %; Neutrophils # (auto) 2.04 K/uL (1.40-6.50); Neutrophils % (auto) 53.2 %
[2022-06-09 13:05] LABS: Adenovirus PCR Not Detected (NotDetected); Bordetella parapertussis PCR Not Detected (NotDetected); Bordetella pertussis PCR Not Detected (NotDetected); Chlamydia pneumoniae PCR Not Detected (NotDetected); Coronavirus 229E PCR Not Detected (NotDetected); Coronavirus CoV-2 (COVID19)PCR Not Detected (NotDetected); Coronavirus HKU1 PCR Not Detected (NotDetected); Coronavirus NL63 PCR Not Detected (NotDetected); Coronavirus OC43PCR Not Detected (NotDetected); Human Metapneumovirus PCR Not Detected (NotDetected); Influenza A PCR Not Detected (NotDetected); Influenza B PCR Not Detected (NotDetected); Mycoplasma pneumoniae PCR Not Detected (NotDetected); Parainfluenza Virus 1 PCR Not Detected (NotDetected); Parainfluenza Virus 2 PCR Not Detected (NotDetected); Parainfluenza Virus 3 PCR Not Detected (NotDetected); Parainfluenza Virus 4 PCR Not Detected (NotDetected); Respiratory Syncytial VirusPCR Not Detected (NotDetected); Rhinovirus/Enterovirus PCR Not Detected (NotDetected)
[2022-06-09 13:09] LABS: Cdiff Toxin B Gene (2yr or >) Positive Cdiff Gene (Neg)
[2022-06-09 13:27] LABS: Appearance Urine Clear (Clear); Bacteria Urine Automated Negative (Negative); Bilirubin Urine Negative (Negative); Blood Urine 2+ (Negative); Color Urine Yellow; Glucose Urine UA Negative (Negative); Ketones Urine Trace (Negative); Leukocyte Esterase Urine Negative (Negative); Nitrite Urine Negative (Negative); Protein Urine Trace (Negative); Specific Gravity Urine 1.019 (1.000-1.030); Urobilinogen Urine Negative (Negative); pH Urine 5.5 (4.5-7.5)
[2022-06-09 13:44] LABS: Adenovirus F 40/41 PCR Not Detected (NotDetected); Astrovirus PCR Not Detected (NotDetected); Campylobacter PCR Not Detected (NotDetected); Cryptosporidium PCR Not Detected (NotDetected); Cyclospora cayetanensis PCR Not Detected (NotDetected); Entamoeba histolytica PCR Not Detected (NotDetected); Enteroaggregative E.coli(EAEC) Not Detected (NotDetected); Enteropathogenic E.coli (EPEC) Not Detected (NotDetected); Enterotoxigenic E.coli (ETEC) Not Detected (NotDetected); Giardia lamblia PCR Not Detected (NotDetected); Norovirus GI/GII PCR Not Detected (NotDetected); Plesiomonas shigelloides PCR Not Detected (NotDetected); Rotavirus A PCR Not Detected (NotDetected); Salmonella PCR Not Detected (NotDetected); Sapovirus PCR Not Detected (NotDetected); Shiga-like Toxin E.coli (STEC) Not Detected (NotDetected); Shigella/Enteroinvasive E.coli Not Detected (NotDetected); Vibrio cholerae PCR Not Detected (NotDetected); Vibrio species PCR Not Detected (NotDetected); Yersinia enterocolitica PCR Not Detected (NotDetected)
--- NOTE | 2022-06-09 14:19 | History & Physical Report ---
Date of Service June 09, 2022 Assessment & Plan (1) C. difficile colitis: Plan: Vancomycin 125mg PO q6h. Would consider longer tapered duration due to recurrence and immunocompromised state. Recommend ID follow up for consideration of adjuvant therapy vs. prophylaxis; which she already has an appointment at [facility] (although initially this was made for recurrent URI) Consider CT if worsening abdominal pain or substantial drop in Hgb but deferred on admission given clinical stability and diagnosis confirmed as c. diff. (2) Thrombocytopenia: Plan: Requires single donor, irradiated platelets due to potential transplant candidate Aim Plt > 20 Trafuse 1 unit now CBC to be taken 45 minutes after platelet transfusion finishes and then if no transfusion required every 12 hours. (3) Bright red blood per rectum: Plan: Suspect secondary to c. 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 She reports loose stool started 5 days ago. Initially thin stool but then became more loose and watery with frequency every 15-20 minutes. Around 7am today she passed blood and gelatinous material with generalized rectal pressure therefore decided to come to the ER for evaluation. Associated abdominal cramping and bloating. She was recently admitted from May 24 - 2022 due to fever. She received broad spectrum antibiotics and c. diff prophylaxis although this as discontinued on discontinuation of broad spectrum antibiotics as no definitive bacterial infection found. She has a history of c. diff twice previously related to antibiotic use, both times treated successfully with vancomycin. In the ER c. diff toxin PCR positive. She was referred to medicine for diarrhea and thrombocytopenia. The ER provider discussed care with Dr Vidal and recommend platelet transfusions with irradiated single donor platelets to aim > 20. Allergies Allergy/AdvReac Type Severity Reaction Status Date / Time hydromorphone [From Dilaudid] Allergy Severe Hallucinati Verified 06/09/22 13:01 ng latex Allergy Severe SYSTEMIC Verified 06/09/22 13:01 ALLERGIC RESPONSE Penicillins Allergy Severe HIVES,DIFF. Verified 06/09/22 13:01 BREATHING codeine AdvReac Intermediate INDUCES Verified 06/09/22 13:01 MIGRAINE HEADACHES verapamil AdvReac Mild very sleepy Verified 06/09/22 13:01 morphine AdvReac Migraine Verified 06/09/22 13:01 Home Medications Medication Instructions Recorded Confirmed Type acetaminophen 500 mg tablet 1,000 mg PO DIRECTED PRN Pain 10/26/18 06/09/22 History (Tylenol Extra Strength) cholecalciferol (vitamin D3) 1,250 50,000 unit PO 2XWK 09/16/20 06/09/22 History mcg (50,000 unit) capsule Lactobacillus 1 cap PO DAILY 10/15/20 06/09/22 History acidophilus-Bifidobac.animalis 2 billion cell capsule folic acid 1 mg tablet 1 mg PO DAILY 06/23/21 06/09/22 History famotidine 20 mg tablet (Pepcid) 20 mg PO DAILY #30 tabs 05/29/22 06/09/22 Rx diphenhydramine HCl 25 mg capsule 25 mg PO DIRECTED PRN .before 06/09/22 06/09/22 History (Benadryl) transfusions Past Med/Surg History Medical History A-fib remote hx of idiopathic pericarditis and transient a. fib (2015)- advised by cardiology 10/2016 to f/u PRN Anemia hgb stable in the 10-11 range Anxiety prior to procedures Bronchitis Delayed recovery from anesthesia GERD (gastroesophageal reflux disease) r/t chemo History of recent steroid use per RN phone interview, prednisone for first 5 days of 28 days chemo cyc le/did not indicate last use History of thrombocytopenia fluctuating platelets since leukemia diagnosis/chemo treatments Hypertension Leukemia dx 10/2018 Migraine Osteoarthritis Peripheral neuropathy R/L hands, feet Port-A-Cath in place (04/25/19) Insertion of Mediport Left Subclavian Dr. Hinton 04/25/19 Sleep apnea "no official diagnosis" per RN phone interview/no further details- ?DEMOND Vitamin D deficiency Surgical History H/O section X2 History of bone marrow biopsy History of colon resection History of colonoscopy History of total hip arthroplasty LEFT S/P breast biopsy bilat S/P PICC central line placement DOUBLE LUMEN > OCT 2018> RIGHT ARM Family History Mother Cancer Breast cancer Brother Cancer Heart disease Social History Smoking Status: Never smoker Second Hand Exposure: No; Hx Alcohol Use: No Hx Substance Use: No Preferred Language: Greenlandic Communication Ability: Effective Student Support Services Director Required: No Beliefs That Will Affect Care: None marital status: Current Living Situation: Alone Other Information That Helps Us Care for You: No Feels Safe at Home: Yes Safety Concerns: Feels Safe At This Time Assistive Devices: Glasses Review of Systems Review of Systems: All systems reviewed & are unremarkable except as noted in HPI & below Physical Exam Constitutional: WD/WN, vitals as above Eyes: + anicteric sclerae; normal pupil size ENMT: external ear and nose normal, oropharynx normal Respiratory: normal respiratory effort, lungs clear to auscultation Cardiovascular: RRR, no murmur, no edema Gastrointestinal (Abdomen): Inspection/Auscultation: normal bowel sounds; abdomen not distended Percussion/Palpation: + abdomen tender (lower abdominal) and abdomen soft; no guarding and abdomen not rigid Musculoskeletal: no cyanosis or clubbing, extremities motor strength 5/5 Skin: no rashes, warm and dry Neurologic: moves all extremities and awake; not confused Psychiatric: A+Ox3, euthymic affect Results & Data Results & Data Vital Signs (Past 12 Hours) Vital Signs Temp Pulse Resp BP Pulse Ox O2 Del Method 06/09/22 12:32 84 06/09/22 11:47 15 98 Room Air 06/09/22 10:37 36.8 C 103 H 20 135/69 96 Room Air Laboratory Results Abnormal lab results 06/09/22 06/09/22 06/09/22 Range/Units 11:30 11:30 11:30 WBC 3.84 L (4.8-10.8) K/ul RBC 3.15 L (4.20-5.40) M/uL Hgb 9.5 L (12.0-16.0) g/dl Hct 27.1 L (37.0-47.0) % Plt Count 9 L* (130-400) K/uL Lymph # (Auto) 1.14 L (1.2-3.4) K/uL APTT 35.0 H (21.0-31.0) Seconds Total Bilirubin 1.1 H (0.2-1.0) mg/dl AST 11 L (13-39) U/L Lipase 6 L (11-82) U/L Urine Protein (Negative) Urine Ketones (Negative) Urine Blood (Negative) Urine RBC (Auto) (0-4) /hpf U Epithel Cells (Auto) (0-5) /lpf Stl C. diff Tox B Gene (Neg) Stl C.difficile Tox A&B (Negative) 06/09/22 06/09/22 Range/Units 11:45 13:05 WBC (4.8-10.8) K/ul RBC (4.20-5.40) M/uL Hgb (12.0-16.0) g/dl Hct (37.0-47.0) % Plt Count (130-400) K/uL Lymph # (Auto) (1.2-3.4) K/uL APTT (21.0-31.0) Seconds Total Bilirubin (0.2-1.0) mg/dl AST (13-39) U/L Lipase (11-82) U/L Urine Protein Trace H (Negative) Urine Ketones Trace H (Negative) Urine Blood 2+ H (Negative) Urine RBC (Auto) 5-10 H (0-4) /hpf U Epithel Cells (Auto) 5-10 H (0-5) /lpf Stl C. diff Tox B Gene Positive Cdiff Gene H (Neg) Stl C.difficile Tox A&B Positive Cdiff Toxin A* (Negative) Medications Administered ER Medications Given: None Code Status & VTE Plan Code Status DNR/DNI per patient wishes, consistent with prior hospitalization VTE Prophylaxis Plan VTE Prophylaxis will be ordered: No Reason for no VTE drug order: Contraindicated PG Care Time/CCT Total # of Minutes Spent Total Time Spent with Patient: Total time spent is greater than 50% in coordination of care (as documented) at patient's floor/unit and/or counseling patient: Coding Level of Care Code 52978 INT INP/OBS CARE MIN Diagnoses C. difficile colitis A04.72 Thrombocytopenia D69.6 Bright red blood per rectum K62.5 Leukemia C95.90 MDS (myelodysplastic syndrome) D46.9
[2022-06-09 14:42] LABS: Cdiff Antigen Positive
[2022-06-09 14:49] LABS: Cdiff Toxin A+B Positive Cdiff Toxin (Negative)
[2022-06-09] MEDS ORDERED: RASPBERRY SYRUP 5 ML UDP PO STA (14:54)
[2022-06-09] MEDS ORDERED: VANCOMYCIN HCL 125 MG/2.5ML SOLN PO STA (14:54)
[2022-06-09] MEDS ORDERED: ACETAMINOPHEN 325 MG TAB PO PRN (16:36)
[2022-06-09] MEDS: VANCOMYCIN HCL 125 MG/2.5ML SOLN PO SCH ×2 (18:45→23:02)
[2022-06-09] MEDS: RASPBERRY SYRUP 5 ML UDP PO SCH ×2 (18:45→23:02)
[2022-06-09 19:23] LABS: Hematocrit (blood only) 31.2 % (37.0-47.0); Hemoglobin 10.6 g/dl (12.0-16.0); Mean Corpuscular Hemoglobin 30.2 pg (25.0-34.0); Mean Corpuscular Volume 88.9 fL (80.0-100.0); Mean Platelet Volume 13.2 fL (9.4-12.4); Platelet Count 13 K/uL (130-400); RDW Coefficient of Variation 13.8 % (11.5-14.5); RDW Standard Deviation 44.2 fL (36.4-46.3); Red Blood Count 3.51 M/uL (4.20-5.40); White Blood Count 5.81 K/ul (4.8-10.8)
[2022-06-09] MEDS ORDERED: diphenhydrAMINE Capsule 25 MG CAP PO ONE (22:16)
[2022-06-10 01:23] LABS: Basophils # (auto) 0.09 K/uL (0-0.2); Eosinophils # (auto) 0.04 K/uL (0-0.50); Eosinophils % (auto) 0.9 %; Hematocrit (blood only) 25.9 % (37.0-47.0); Hemoglobin 8.7 g/dl (12.0-16.0); Immature Granulocytes # (auto) 0.15 K/uL (0.01-0.20); Immature Granulocytes % (auto) 3.4 %; Lymphocytes # (auto) 1.45 K/uL (1.2-3.4); Lymphocytes % (auto) 32.5 %; Mean Corpuscular Hemoglobin 29.9 pg (25.0-34.0); Mean Corpuscular Hgb Conc 33.6 g/dL (32.0-36.0); Monocytes # (auto) 0.42 K/uL (0.11-0.59); Monocytes % (auto) 9.4 %; Neutrophils # (auto) 2.31 K/uL (1.40-6.50); Neutrophils % (auto) 51.8 %; Platelet Count 30 K/uL (130-400); RDW Coefficient of Variation 13.7 % (11.5-14.5); RDW Standard Deviation 44.6 fL (36.4-46.3); Red Blood Count 2.91 M/uL (4.20-5.40); White Blood Count 4.46 K/ul (4.8-10.8)
[2022-06-10 01:34] LABS: Calcium 8.8 mg/dl (8.6-10.3); Creatinine Clr Calc Pharmacy 49.7 ml/min; Est GFR (African American) 67.5 ml/min; Est GFR (Non-African American) 58.3 ml/min
[2022-06-10] MEDS: VANCOMYCIN HCL 125 MG/2.5ML SOLN PO SCH (05:16)
[2022-06-10] MEDS: RASPBERRY SYRUP 5 ML UDP PO SCH ×3 (05:16→18:45)
[2022-06-10 07:49] LABS: Basophils # (auto) 0.07 K/uL (0-0.2); Basophils % (auto) 2.1 %; Eosinophils # (auto) 0.03 K/uL (0-0.50); Eosinophils % (auto) 0.9 %; Hematocrit (blood only) 24.1 % (37.0-47.0); Hemoglobin 8.3 g/dl (12.0-16.0); Immature Granulocytes # (auto) 0.13 K/uL (0.01-0.20); Immature Granulocytes % (auto) 3.8 %; Lymphocytes # (auto) 1.32 K/uL (1.2-3.4); Lymphocytes % (auto) 38.8 %; Mean Corpuscular Hemoglobin 30.2 pg (25.0-34.0); Mean Corpuscular Hgb Conc 34.4 g/dL (32.0-36.0); Mean Corpuscular Volume 87.6 fL (80.0-100.0); Mean Platelet Volume 9.5 fL (9.4-12.4); Monocytes # (auto) 0.32 K/uL (0.11-0.59); Monocytes % (auto) 9.4 %; Neutrophils # (auto) 1.53 K/uL (1.40-6.50); Platelet Count 31 K/uL (130-400); RDW Coefficient of Variation 13.7 % (11.5-14.5); Red Blood Count 2.75 M/uL (4.20-5.40)
[2022-06-10 08:06] LABS: BUN Creatinine Ratio 16.5 (10-20); Calcium 8.5 mg/dl (8.6-10.3); Creatinine Clr Calc Pharmacy 62.9 ml/min; Est GFR (African American) 89.8 ml/min; Est GFR (Non-African American) 77.5 ml/min; Potassium 3.9 mmol/L (3.5-5.1)
[2022-06-10] MEDS: FAMOTIDINE 20 MG TAB PO SCH (08:43)
[2022-06-10] MEDS: FOLIC ACID 1 MG TAB PO SCH (08:43)
[2022-06-10] MEDS: VANCOMYCIN HCL 250 MG/5 ML SOLN PO SCH ×2 (11:12→18:45)
[2022-06-10 14:55] LABS: Hemoglobin 8.4 g/dl (12.0-16.0); Mean Corpuscular Hemoglobin 30.2 pg (25.0-34.0); Mean Corpuscular Hgb Conc 33.6 g/dL (32.0-36.0); Mean Corpuscular Volume 89.9 fL (80.0-100.0); Mean Platelet Volume 11.9 fL (9.4-12.4); Platelet Count 28 K/uL (130-400); RDW Coefficient of Variation 13.7 % (11.5-14.5); RDW Standard Deviation 44.6 fL (36.4-46.3); Red Blood Count 2.78 M/uL (4.20-5.40); White Blood Count 2.89 K/ul (4.8-10.8)
--- NOTE | 2022-06-10 14:56 | Hospitalist Progress Note ---
Date of Service June 10, 2022 Assessment & Plan (1) C. difficile colitis: Plan: Improving. Vancomycin dosage increased from 125 mg to 250 mg every 6 hours. Will eventually discharge on a prolonged tapering dose. (2) Thrombocytopenia: Plan: Requires single donor, irradiated platelets due to potential transplant candidate. She received platelet transfusion this admission. Platelet count today is 31,000. We will follow. (3) Bright red blood per rectum: Plan: Suspect secondary to c. diff infection. Now resolved. Serial labs (4) Leukemia: Plan: History of B cell acute lymphoblastic anemia, diagnosed in 10/2018 s/p hyperCVAD. Serial labs (5) MDS (myelodysplastic syndrome): Plan: Anemia and thrombocytopenia management as above. Serial labs Plan VTE Prophylaxis - contraindicated due to thrombocytopenia Diet - regular Disposition -hopefully home tomorrow, June 11, on a prolonged oral vancomycin tapering dose Admission and Anticipated Discharge Date Admission Date: June 09, 2022 Subjective Alert and oriented. Pleasant. Afebrile with vital signs stable. Hemoglobin 8.3 this morning. We will continue to monitor daily lab work. Platelet count 31,000 which is chronically low. She did receive platelet transfusion this admission. She states her diarrhea has improved. Oral vancomycin dosage has been uptitrated. Zinc oxide ordered for hemorrhoidal irritation. Hopefully she can go home tomorrow, June 11, on a prolonged vancomycin weaning dosage Review of Systems Review of Systems: Constitutional-no fever or chills ENT-no blurred vision, no double vision, no epistaxis, no sore throat Respiratory-no cough, no wheezing, no shortness of breath Cardiac-no palpitations, no chest pain, no syncope GI-no nausea, vomiting, melena, hematochezia. Diarrhea frequency has lessened. She does have some hemorrhoidal irritation -no urinary retention, no urinary incontinence, no dysuria, no hematuria Musculoskeletal-no joint pain, no muscle tenderness Skin-no bruising, no rashes, no pruritus Neuro-no isolated weakness, no paresthesia, no weakness Psych-no depression, no anxiety Physical Exam Physical Exam: General-alert and oriented x3, no fevers, no chills HEENT-head atraumatic and normocephalic, pupils equal and reactive to light, extraocular muscles intact Neck-no lymphadenopathy or thyromegaly, trachea midline Chest-clear to auscultation percussion. No rales wheezing or rhonchi Cardiac-regular rate and rhythm, normal S1 and S2 Abdomen-normal bowel sounds, nontender, no hepatosplenomegaly Extremities-no cyanosis, clubbing, or edema Neuro-cranial nerves II through XII intact, motor and sensory function within normal limits, strength symmetrical , no focal deficits Psych-normal affect, normal mood Results & Data Results & Data Vital Signs (Past 12 Hours) Vital Signs Temp Pulse Resp BP Pulse Ox O2 Del Method 06/10/22 14:32 36.5 C 70 16 138/70 96 Room Air 06/10/22 07:26 36.8 C 77 18 106/61 96 Room Air Laboratory Results 06/10/22 07:18 PG Care Time/CCT Total # of Minutes Spent Total Time Spent with Patient: Total time spent is greater than 50% in coordination of care (as documented) at patient's floor/unit and/or counseling patient: Coding Level of Care Code 35809 SUB INP/OBS CARE 3/50MIN Diagnoses C. difficile colitis A04.72 Thrombocytopenia D69.6 Bright red blood per rectum K62.5 Leukemia C95.90 MDS (myelodysplastic syndrome) D46.9
[2022-06-10 14:58] LABS: Basophils # (auto) 0.08 K/uL (0-0.2); Basophils % (auto) 2.8 %; Eosinophils # (auto) 0.05 K/uL (0-0.50); Eosinophils % (auto) 1.7 %; Immature Granulocytes # (auto) 0.08 K/uL (0.01-0.20); Immature Granulocytes % (auto) 2.8 %; Lymphocytes # (auto) 1.21 K/uL (1.2-3.4); Lymphocytes % (auto) 41.9 %; Monocytes # (auto) 0.27 K/uL (0.11-0.59); Monocytes % (auto) 9.3 %; Neutrophils % (auto) 41.5 %
--- NOTE | 2022-06-10 18:28 | CT Scan Report ---
CT abd pelvis wo con CLINICAL HISTORY: enteritis, rectal discomfort TECHNIQUE: Helical axial images of the abdomen and pelvis were obtained. Automated dose lowering tech niques and/or adjustment according to patient size were utilized for this exam. This exam was perfor med without intravenous contrast. CT DOSE: 364.86 mGy.cm COMPARISON: Comparison is made to left hip radiograph 05/26/2022 FINDINGS: Lower chest: No acute abnormality. Liver: Hepatic steatosis is noted. Gallbladder and biliary tree: Layering radiodense material is seen in the dependent portion of the li surendra representing sludge. No intra- or extrahepatic biliary ductal dilation. Pancreas: Unremarkable, no focal lesions. Spleen: Unremarkable. Adrenals: Unremarkable. Kidneys and ureters: Unremarkable. Bladder: Unremarkable. Reproductive organs: Unremarkable. Bowel: Postresection changes are seen in the rectum. The appendix is normal. No bowel wall thickening is seen Lymph nodes Retroperitoneal: Unremarkable. Pelvic: Unremarkable. Mesenteric: Unremarkable. Peritoneum: Minimal nonspecific stranding is seen in the presacral soft tissues. Vessels: Atherosclerotic calcifications are seen. Abdominal wall: Unremarkable. Bones: Degenerative changes in the visualized spine. Left hip total arthroplasty is seen. IMPRESSION: 1. No acute abnormalities and in particular no evidence of enteritis or proctitis. Postsurgical rosen ges are seen in the rectum. Minimal stranding in the presacral soft tissues is nonspecific. 2. Hepatic steatosis. ACT 112: Negative or not required by law. Electronically signed by: Jose Tom M.D. 06/10/2022 6:27 PM
[2022-06-10] MEDS: BUTT PASTE (ZINC OXIDE 16%) 171 APPLN/57 GM JAR EXT SCH (20:11)
[2022-06-11] MEDS: RASPBERRY SYRUP 5 ML UDP PO SCH ×2 (00:13→05:42)
[2022-06-11] MEDS: VANCOMYCIN HCL 250 MG/5 ML SOLN PO SCH ×2 (00:14→05:42)
[2022-06-11] MEDS ORDERED: HEPARIN 100 UNIT/ML 5ML FLUSH FLUSH PRN (02:18)
[2022-06-11 06:52] LABS: Hematocrit (blood only) 26.1 % (37.0-47.0); Hemoglobin 8.9 g/dl (12.0-16.0); Mean Corpuscular Hemoglobin 30.4 pg (25.0-34.0); Mean Corpuscular Hgb Conc 34.1 g/dL (32.0-36.0); Mean Corpuscular Volume 89.1 fL (80.0-100.0); Mean Platelet Volume 10.9 fL (9.4-12.4); Platelet Count 24 K/uL (130-400); RDW Coefficient of Variation 13.4 % (11.5-14.5); RDW Standard Deviation 43.7 fL (36.4-46.3); Red Blood Count 2.93 M/uL (4.20-5.40); White Blood Count 3.26 K/ul (4.8-10.8)
[2022-06-11 07:02] LABS: Basophils # (auto) 0.11 K/uL (0-0.2); Basophils % (auto) 3.4 %; Eosinophils # (auto) 0.05 K/uL (0-0.50); Eosinophils % (auto) 1.5 %; Immature Granulocytes # (auto) 0.14 K/uL (0.01-0.20); Immature Granulocytes % (auto) 4.3 %; Lymphocytes % (auto) 42.9 %; Monocytes % (auto) 9.2 %; Neutrophils # (auto) 1.26 K/uL (1.40-6.50); Neutrophils % (auto) 38.7 %
[2022-06-11 07:11] LABS: BUN Creatinine Ratio 18.1 (10-20); Creatinine Clr Calc Pharmacy 59.8 ml/min; Est GFR (African American) 84.6 ml/min
[2022-06-11] MEDS: FAMOTIDINE 20 MG TAB PO SCH (09:10)
[2022-06-11] MEDS: FOLIC ACID 1 MG TAB PO SCH (09:10)
[2022-06-11] MEDS: BUTT PASTE (ZINC OXIDE 16%) 171 APPLN/57 GM JAR EXT SCH (09:11)
--- NOTE | 2022-06-11 09:57 | Discharge Summary ---
Date of Service June 11, 2022 Admission HPI Per Admitting Provider Mariana Gonzalez is a 66 year old female with myelodysplastic syndrome who presents to the ER with diarrhea. She reports loose stool started 5 days ago. Initially thin stool but then became more loose and watery with frequency every 15-20 minutes. Around 7am today she passed blood and gelatinous material with generalized rectal pressure therefore decided to come to the ER for evaluation. Associated abdominal cramping and bloating. She was recently admitted from May 24 - 2022 due to fever. She received broad spectrum antibiotics and c. diff prophylaxis although this as discontinued on discontinuation of broad spectrum antibiotics as no definitive bacterial infection found. She has a history of c. diff twice previously related to antibiotic use, both times treated successfully with vancomycin. In the ER c. diff toxin PCR positive. She was referred to medicine for diarrhea and thrombocytopenia. The ER provider discussed care with Dr Vidal and recommend platelet transfusions with irradiated single donor platelets to aim > 20. Principal Diagnosis Recurrent C. difficile enteritis, lower GI bleed, chronic thrombocytopenia Discharge Exam General-alert and oriented x3, no fevers, no chills HEENT-head atraumatic and normocephalic, pupils equal and reactive to light, extraocular muscles intact Neck-no lymphadenopathy or thyromegaly, trachea midline Chest-clear to auscultation percussion. No rales wheezing or rhonchi Cardiac-regular rate and rhythm, normal S1 and S2 Abdomen-normal bowel sounds, nontender, no hepatosplenomegaly Extremities-no cyanosis, clubbing, or edema Neuro-cranial nerves II through XII intact, motor and sensory function within normal limits, strength symmetrical , no focal deficits Psych-normal affect, normal mood Discharge Data Allergies Allergy/AdvReac Type Severity Reaction Status Date / Time hydromorphone [From Dilaudid] Allergy Severe Hallucinati Verified 06/09/22 13:01 ng latex Allergy Severe SYSTEMIC Verified 06/09/22 13:01 ALLERGIC RESPONSE Penicillins Allergy Severe HIVES,DIFF. Verified 06/09/22 13:01 BREATHING codeine AdvReac Intermediate INDUCES Verified 06/09/22 13:01 MIGRAINE HEADACHES verapamil AdvReac Mild very sleepy Verified 06/09/22 13:01 morphine AdvReac Migraine Verified 06/09/22 13:01 Consultations 06/09/22 14:23 ED Decision to Admit Stat Ordered Studies 06/10/22 17:13 CT Abd and Pelvis [CT abd pelvis wo con] Stat Hospital Course (1) C. difficile colitis: Much improved since admission. Vancomycin dosage increased from 125 mg to 250 mg every 6 hours on 324. She will be discharged on vancomycin 125 mg 4 times a day to be tapered off as an outpatient over a several week course by her PCP. (2) Thrombocytopenia: Requires single donor, irradiated platelets due to potential transplant ca ndidate. She received platelet transfusion this admission. Platelet count today is 24,000. We will follow. (3) Bright red blood per rectum: Suspect secondary to c. diff infection. Now resolved. Serial labs. Hemoglobin is stable (4) Leukemia: History of B cell acute lymphoblastic anemia, diagnosed in 10/2018 s/p hyperCVAD. Serial labs (5) MDS (myelodysplastic syndrome): Anemia and thrombocytopenia management as above. Serial labs Plan Home today, June 11, on oral vancomycin prolonged dosing to be tapered off by her PCP. Total Time Total Time Spent Total Time Spent (In Minutes): 40 minutes Discharge Plan Discharge Items Patient Disposition: Home - Self-Care Reason For Visit: C DIFF, THROMBOCYTOPENIA, BRIGHT RED BLOOD PER REC Discharge Diagnosis: Recurrent C. difficile enteritis, lower GI bleeding, chronic thrombocytopenia Condition on Discharge: Good Activity: Resume your previous activity Non-emergency contact: Primary Care Provider Call non-emergency contact if: you have any medication questions and your symptoms worsen Follow-up/Referrals: Marlene Barnett MD [Primary Care Provider] - Diet: Regular and Heart Healthy Addtl Attending Provider Instructions: Take vancomycin 125 mg 4 times daily. This will be tapered off over a several week timeframe by your PCP Pending Studies at Discharge: No Stand-Alone Forms: My [employer], Smoking Cessation Medications and DC Order Prescriptions: New vancomycin 125 mg capsule 125 mg PO QID Qty: 60 0RF Continued cholecalciferol (vitamin D3) 1,250 mcg (50,000 unit) capsule 50,000 unit PO 2XWK Rx Instructions: wed, sat L. acidophilus/Bifid. animalis 2 billion cell capsule 1 cap PO DAILY Rx Instructions: with vit c, chaparro, zinc acetaminophen [Tylenol Extra Strength] 500 mg Tablet 1,000 mg PO DIRECTED PRN (Reason: Pain) Rx Instructions: PRN and pretreat before blood transfusions. famotidine [Pepcid] 20 mg tablet 20 mg PO DAILY Qty: 30 0RF diphenhydramine HCl [Benadryl] 25 mg Capsule 25 mg PO DIRECTED PRN (Reason: .before transfusions) folic acid 1 mg Tablet 1 mg PO DAILY Discharge Orders: Discharge Order (Routine); Ordered 06/11/22 Ordered By: Darnell Brothers Admission Data Admit Date/Time: 06/09/22 15:10 Attending Provider: Darnell Brothers Admit Provider: Jim Dutton Primary Care Provider: Marlene Barnett Other Providers: Jim Dutton Coding Level of Care Code 46832 INP/OBS DISCH >30 MIN Diagnoses C. difficile colitis A04.72 Thrombocytopenia D69.6 Bright red blood per rectum K62.5 Leukemia C95.90 MDS (myelodysplastic syndrome) D46.9
== END 2022-06-11 11:39 | disposition home or self-care (01) ==
LOC: ED 10:34 → 3W 10:34 → SUATTDRO 15:10 → 3W 16:18